=== PATIENT | male | born 1970 | race Caucasian/White ===

== ENCOUNTER 2016-09-03 17:55 | Inpatient (IN) | payer OTHER ==
[~2016-09-03] VITALS: Ht 177.8 cm; Wt 83.6 kg
[2016-09-03] VITALS (13 sets, daily range): BP systolic 108–161; BP diastolic 52–96; PULSE 112–196; RESP 14–20; TEMP 98.4–98.5; O2SAT 90–100
[2016-09-03] MEDS ORDERED: DILTIAZEM HCL 25 MG/5 ML VIAL ONE (18:23)
[2016-09-03] MEDS ORDERED: LORazepam 2 MG/ML VIAL IV PUSH ONE ×4 (18:30→20:00)
[2016-09-03] MEDS ORDERED: DILTIAZEM INJ 125 MG in SODIUM CHLORIDE 0.9% INJ 100 ML IV SCH (18:30)
[2016-09-03] MEDS ORDERED: DILTIAZEM HCL 25 MG/5 ML VIAL IVP ONE (18:30)
[2016-09-03] MEDS ORDERED: SODIUM CHLOR 0.9% 1000 ML INJ 1,000 ML IV SCH (18:30)
[2016-09-03] MEDS ORDERED: DILTIAZEM HCL 25 MG/5 ML VIAL IV ONE (18:30)
[2016-09-03] MEDS ORDERED: FOSPHENYTOIN INJ 1,000 MGPE in SODIUM CHLORIDE 0.9% INJ 50 ML IV ONE (18:45)
[2016-09-03 18:46] LABS: AUTOMATED NEUTROPHIL # 5.8 TH/MM3 (1.8-7.7); BASOPHIL % 0.3 % (0.0-2.0); HEMO FLAGS AUTO DIFF; LYMPH % 5.6 % (9.0-44.0); LYMPHOCYTE # 0.4 TH/MM3 (1.0-4.8); MEAN CELL VOLUME 108.3 FL (80.0-100.0); MEAN CORPUSCULAR HEMOGLOBIN 36.9 PG (27.0-34.0); MONO % 7.4 % (0.0-8.0); NEUT % 86.7 % (16.0-70.0); PLATELET COUNT 84 TH/MM3 (150-450); RED BLOOD COUNT 3.88 MIL/MM3 (4.50-5.90); RED CELL DISTRIBUTION WIDTH 15.6 % (11.6-17.2); WHITE BLOOD COUNT 6.7 TH/MM3 (4.0-11.0)
[2016-09-03 18:55] LABS: APTT (PATIENT) 23.4 SEC (24.3-30.1); INTERNATIONAL NORMALIZED RATIO 1.1 RATIO; PROTHROMBIN TIME - PATIENT 11.7 SEC (9.8-11.6)
--- NOTE | 2016-09-03 18:55 | PD ---
HPI Chief Complaint: Seizure Time Seen by Provider: 18:23 Travel History International Travel<30 days: No Contact w/Intl Traveler<30days: No Traveled to known affect area: No History of Present Illness HPI 46-year-old male was for him EMS for seizure. Patient has history of alcohol abuse. Patient moved to [place] from [place] and does not have a local physician. Patient has history of liver failure and kidney failure in the past. Patient states that he is still drinking alcohol daily. Patient states that the last ring with this morning. Patient was witnessed to have 2 generalized tonic-clonic seizure today. EMS was called. Patient was reported to the ED for evaluation. Patient denies any headache. Patient denies any chest pain or shortness of breath. Patient denies abdominal pain. Patient denies any extremity pain. Patient denies any focal weakness or numbness of extremity. Patient states that he has extremity shaking in the past when his stop drinking alcohol. Patient denies any cardiac problem. Patient denies any medical problem. Patient is not on any routine medication. Patient has been taking [id number] energy pills recently. [facility] Social History Tobacco Use: No Allergies-Medications (Allergen,Severity, Reaction): Coded Allergies: No Known Allergies (Unverified , 09/03/16) Review of Systems General / Constitutional: No: Fever Eyes: No: Visual changes HENT: No: Headaches Cardiovascular: No: Chest Pain or Discomfort Respiratory: No: Shortness of Breath Gastrointestinal: No: Abdominal Pain Genitourinary: No: Dysuria Musculoskeletal: No: Pain Skin: No Rash Neurologic: Positive: Seizures, No: Weakness Psychiatric: No: Depression Endocrine: No: Polydipsia Hematologic/Lymphatic: No: Easy Bruising Physical Exam Narrative GENERAL: Well-nourished, well-developed patient. SKIN: Warm and dry. HEAD: Normocephalic. EYES: No scleral icterus. No injection or drainage. Patient has dry blood on the mucous membrane of the mouth. NECK: Supple, trachea midline. No JVD or lymphadenopathy. CARDIOVASCULAR: Irregularly irregular tachycardia rhythm without murmurs. RESPIRATORY: Breath sounds equal bilaterally. No accessory muscle use. GASTROINTESTINAL: Abdomen soft, non-tender, nondistended. MUSCULOSKELETAL: No cyanosis, or edema. BACK: Nontender without obvious deformity. No CVA tenderness. Neurologic exam: Patient is lethargic however answer questions appropriately. Patient has 3 cm macerated laceration on the right side the tongue with active bleeding. Data Data Last Documented VS Vital Signs Date Time Temp Pulse Resp B/P Pulse Ox O2 Delivery O2 Flow Rate FiO2 09/03/16 19:10 169 91 Nasal Cannula 2 09/03/16 19:07 18 134/70 09/03/16 18:22 98.5 Orders Diltiazem Inj (Cardizem Inj) (09/03/16 18:30) Diltiazem Inj (Cardizem Inj) (09/03/16 18:23) Vital Signs (Adult) Q15MX4,Q4H (09/03/16 18:23) ^ Unix Manager / Telemetry (09/03/16 18:23) Cardiac Rhythm KARI.Q8H (09/03/16 18:23) ^ Notify Dr: Other (09/03/16 18:23) Diltiazem Inj (Cardizem Inj) (09/03/16 18:30) Diltiazem Inj (Cardizem Inj) (09/03/16 18:30) Sodium Chlor 0.9% 1000 Ml Inj (Ns 1000 M (09/03/16 18:30) Complete Blood Count With Diff (09/03/16 18:25) Comprehensive Metabolic Panel (09/03/16 18:25) Creatine Kinase (Cpk) (09/03/16 18:25) Troponin I (09/03/16 18:25) B-Type Natriuretic Peptide (09/03/16 18:25) Prothrombin Time / Inr (Pt) (09/03/16 18:25) Act Partial Throm Time (Ptt) (09/03/16 18:25) Lipase (09/03/16 18:25) Urinalysis - C+S If Indicated (09/03/16 18:25) Magnesium (Mg) (09/03/16 18:25) Alcohol (Ethanol) (09/03/16 18:25) Drug Screen, Random Urine (09/03/16 18:25) Ammonia (09/03/16 18:25) Thyroid Stimulating Hormone (09/03/16 18:25) Phosphorus (Po4) (09/03/16 18:25) Chest, Single Ap (09/03/16 18:25) Iv Access Insert/Monitor (09/03/16 18:25) Ecg Monitoring (09/03/16 18:25) Oximetry (09/03/16 18:25) Lorazepam Inj (Ativan Inj) (09/03/16 18:30) Fosphenytoin Inj (Cerebyx Inj) (09/03/16 18:45) Lorazepam Inj (Ativan Inj) (09/03/16 18:45) Lorazepam Inj (Ativan Inj) (09/03/16 19:00) Ct Brain W/O Iv Contrast(Rout) (09/03/16 18:55) Etomidate Inj (Amidate Inj) (09/03/16 19:15) Rocuronium Inj (Zemuron Inj) (09/03/16 19:15) Midazolam Inj (Versed Inj) (09/03/16 19:15) Neurological Rass Scale Q30MX2,Q2HX4,Q4H (09/03/16 19:04) Propofol 1000 Mg/100 Ml Inj (Diprivan 10 (09/03/16 19:15) ^ Infusion (09/03/16 19:04) RASS (09/03/16 19:04) Neurological Rass Scale KARI.Q2H (09/03/16 19:04) ^ Medication Alert (09/03/16 19:19) ^ Discontinue (09/03/16 19:19) Amiodarone Inj (Cordarone Inj) (09/03/16 19:30) Amiodarone Inj (Cordarone Inj) (09/03/16 19:30) Vital Signs (Adult) KARI.Q4H (09/03/16 19:19) Electrocardiogram (09/03/16 18:17) CKMB (09/03/16 18:28) CKMB% (09/03/16 18:28) Potassium, Serum (K) (09/03/16 19:32) Admit Order (Ed Use Only) (09/03/16 19:39) Labs Laboratory Tests Test 09/03/16 09/03/16 18:28 18:44 White Blood Count 6.7 TH/MM3 Red Blood Count 3.88 MIL/MM3 Hemoglobin 14.3 GM/DL Hematocrit 42.0 % Mean Corpuscular Volume 108.3 FL Mean Corpuscular Hemoglobin 36.9 PG Mean Corpuscular Hemoglobin 34.0 % Concent Red Cell Distribution Width 15.6 % Platelet Count 84 TH/MM3 Mean Platelet Volume 10.1 FL Neutrophils (%) (Auto) 86.7 % Lymphocytes (%) (Auto) 5.6 % Monocytes (%) (Auto) 7.4 % Eosinophils (%) (Auto) 0.0 % Basophils (%) (Auto) 0.3 % Neutrophils # (Auto) 5.8 TH/MM3 Lymphocytes # (Auto) 0.4 TH/MM3 Monocytes # (Auto) 0.5 TH/MM3 Eosinophils # (Auto) 0.0 TH/MM3 Basophils # (Auto) 0.0 TH/MM3 CBC Comment AUTO DIFF Differential Comment AUTO DIFF CONFIRMED Platelet Estimate LOW Platelet Morphology Comment NORMAL Prothrombin Time 11.7 SEC Prothromb Time International 1.1 RATIO Ratio Activated Partial 23.4 SEC Thromboplast Time Sodium Level 132 MEQ/L Potassium Level 6.0 MEQ/L Chloride Level 91 MEQ/L Carbon Dioxide Level 17.3 MEQ/L Anion Gap 24 MEQ/L Blood Urea Nitrogen 11 MG/DL Creatinine 1.17 MG/DL Estimat Glomerular Filtration 67 ML/MIN Rate Random Glucose 252 MG/DL Calcium Level 9.6 MG/DL Phosphorus Level 2.1 MG/DL Magnesium Level 1.0 MG/DL Total Bilirubin 3.0 MG/DL Aspartate Amino Transf 243 U/L (AST/SGOT) Alanine Aminotransferase 117 U/L (ALT/SGPT) Alkaline Phosphatase 153 U/L Total Creatine Kinase 445 U/L Creatine Kinase MB 2.1 NG/ML Creatine Kinase MB % 0.5 % Troponin I LESS THAN 0.02 NG/ML B-Type Natriuretic Peptide 7 PG/ML Total Protein 9.0 GM/DL Albumin 4.5 GM/DL Lipase 106 U/L Thyroid Stimulating Hormone 2.510 uIU/ML 3rd Gen Ethyl Alcohol Level LESS THAN 3 MG/DL Ammonia 175 MCMOL/L [facility] Medical Decision Making Medical Screen Exam Complete: Yes Emergency Medical Condition: Yes Differential Diagnosis Differential diagnosis including new-onset seizure, alcohol withdrawal seizure, DT, electrolyte imbalance, dehydration, new onset atrial fibrillation with RVR. Narrative Course 46 year male was brought in by EMS for seizure. History of EtOH abuse. History of liver disease and kidney disease. Patient in atrial fibrillation with RVR. Rate about 180. Cardizem 20 mg IV given. started Cardizem drip. Patient had the seizure in the ED. Ativan 2 mg IV given. Cerebyx 1 g IV given. Thiamine 100 mg IV given. Normal saline solution 100 cc an hour. Bolus of Ativan IV given the patient without success to control recurrent seizure episodes. Patient was intubated. Propofol, Versed drip started. Dr. Mchugh , engineering team supervisor was consulted for A. fib problem. Advised continue with Cardizem drip and amiodarone if necessary.. Critical Care Narrative Aggregate critical care time was 120 minutes. Time to perform other separately billable procedures was not included in the critical care time. My time did not include minutes spent treating any other patients simultaneously or on activities that did not directly contribute to the patient's treatment. The services I provided to this patient were to treat and/or prevent clinically significant deterioration that could result in: I provided critical care services requiring my management, as noted below: Chart data review, documentation time, medication orders and management, vital sign assessments/reviewing monitor data, ordering and reviewing lab tests, ordering and interpreting/reviewing x-rays and diagnostic studies, care of the patient and discussion of the patient with the admitting physicians. Procedures Procedure Narrative After the risks and benefits were discussed the following procedure was performed: INTUBATION: The patient was put in optimal position for the procedure. Rapid sequence intubation was initiated by me using 20 milligrams of etomidate IV and 50 milligrams of rocuronium IV. The patient was intubated with a [-] cuffed endotracheal tube. Tube placement was confirmed by visualization of the tube and balloon passing through the cords, capnometry and subsequent chest x-ray. Breath sounds were equal and well aerated bilaterally postintubation. No breath sounds over stomach. Patient tolerated procedure well .LACERATION LOCATION: Tongue LENGTH: 3 cm NUMBER OF STITCHES/ROSHAN: Absorbable sutures REPAIR: The area of the laceration was prepped with Betadine and sterilely draped. The laceration was infiltrated with 1% lidocaine with epi. The wound was copiously irrigated and explored without evidence of foreign body, tendon injury or neurovascular injury. The wound was closed using 3-0 Vicryl. This was a single layer repair. A sterile dressing was applied. The patient was advised to keep the dressing clean and dry. Patient tolerated the procedure well. Diagnosis Primary Impression: Status epilepticus Additional Impressions: Respiratory failure Qualified Code: J96.01 - Acute respiratory failure with hypoxia Tongue laceration Qualified Code: S01.512A - Tongue laceration, initial encounter Bryan Cheung MD Sep 03, 2016 18:55
[2016-09-03] MEDS ORDERED: ETOMIDATE 20 MG/10 ML VIAL IV PUSH ONE (19:15)
[2016-09-03] MEDS ORDERED: PROPOFOL 1000 MG/100 ML INJ 100 ML IV SCH (19:15)
[2016-09-03] MEDS ORDERED: ROCURONIUM INJ 50 MG/5 ML VIAL IV ONE (19:15)
[2016-09-03 19:19] LABS: PLATELET ESTIMATE SMEAR LOW (NORMAL); PLATELET MORPHOLOGY NORMAL (NORMAL); SCAN/DIFF AUTO DIFF CONFIRMED
[2016-09-03 19:28] LABS: ALKALINE PHOSPHATASE 153 U/L (45-117); ALT (GPT) 117 U/L (12-78); ANION GAP 24 MEQ/L (5-15); AST (GOT) 243 U/L (15-37); BICARBONATE 17.3 MEQ/L (21.0-32.0); BLOOD UREA NITROGEN 11 MG/DL (7-18); CHLORIDE 91 MEQ/L (98-107); CREATINE KINASE 445 U/L (39-308); GLOMERULAR FILTRATION RATE 67 ML/MIN (>89); SODIUM (NA) 132 MEQ/L (136-145)
[2016-09-03] MEDS ORDERED: AMIODARONE INJ 450 MG in DEXTROSE 5% IN WATE(EXCEL) INJ 241 ML IV SCH ×2 (19:30)
[2016-09-03] MEDS ORDERED: AMIODARONE INJ 150 MG in DEXTROSE 5% IN WATER 100ML INJ 97 ML IV ONE ×2 (19:30)
[2016-09-03 19:42] LABS: CKMB 2.1 NG/ML (0.5-3.6)
[2016-09-03] MEDS ORDERED: MIDAZOLAM 100 MG/ML INJ 100 ML ONE (20:01)
--- NOTE | 2016-09-03 20:48 | RADRPT ---
EXAM DATE/TIME: 09/03/2016 20:21 [facility] COMPARISON: No previous studies available for comparison. INDICATIONS : SOB, Evaluate heart and lungs post intubation. MEDICAL HISTORY : Seizures SURGICAL HISTORY : None. ENCOUNTER: Initial ACUITY: 1 day PAIN SCORE: Non-responsive. LOCATION: Chest FINDINGS: ET tube and nasogastric tube are in good position. The right lung is clear. Very minimal perihilar parenchymal changes are seen on the left. Heart and pulmonary vascularity are normal. Portion of th e bony skeleton visualized is unremarkable. CONCLUSION: 1. Support apparatus in good position. 2. Very minimal parenchymal change perihilar region on the left. Josafat Madrid MD FACR on September 03, 2016 at 20:41 Board Certified Radiologist. This report was verified electronically.
[2016-09-03 20:56] LABS: BLOOD, URINE MOD (NEG); COMMENT (UR) CULT NOT INDICATED; CULTURE IF INDICATED CULT NOT INDICATED; GLUCOSE,URINE 1000 mg/dL (NEG); HYALINE CAST, URINE 1 /lpf (RARE); KETONE, URINE 40 mg/dL (NEG); MUCUS URINE FEW /lpf (OCC); NITRITE,URINE NEG (NEG); PH, URINE 6.5 (5.0-8.5); URINE COLOR YELLOW (YELLW/STRAW)
[2016-09-03 21:00] LABS: AMPHETAMINE, URINE NEG (NEG); BARBITURATES, URINE NEG (NEG); COCAINE, URINE NEG (NEG)
[2016-09-03] MEDS ORDERED: MAGNESIUM OXIDE 400 MG TAB PO PRN (22:15)
[2016-09-03] MEDS ORDERED: MAGNESIUM SULFATE INJ 2 GM in SODIUM CHLORIDE 0.9% INJ 96 ML IV PRN (22:15)
[2016-09-03] MEDS ORDERED: SODIUM PHOSPHATE INJ 30 MMOL in SODIUM CHLOR 0.9% 250 ML INJ 240 ML IV PRN (22:15)
[2016-09-03] MEDS ORDERED: POTASSIUM PHOSPHATE MONOBASIC 500 MG TAB PO/TUBE PRN (22:15)
[2016-09-03] MEDS ORDERED: POTASSIUM PHOSPHATE MONOBASIC 500 MG TAB PO PRN (22:15)
[2016-09-03] MEDS ORDERED: POTASSIUM PHOSPHATE INJ 30 MMOL in SODIUM CHLOR 0.9% 250 ML INJ 250 ML IV PRN (22:15)
[2016-09-03] MEDS ORDERED: POTASSIUM CL 40 MEQ/30 ML LIQ UDC PO/TUBE PRN ×2 (22:15)
[2016-09-03] MEDS ORDERED: POTASSIUM CHLOR 20 MEQ PREMIX 100 ML IV PRN (22:15)
[2016-09-03] MEDS: METOPROLOL TARTRATE 25 MG TAB PO SCH (22:30)
[2016-09-03] MEDS ORDERED: MISCELLANEOUS NURSING INFORMATION XX SCH (22:30)
[2016-09-03] MEDS ORDERED: CHLORHEXIDINE GLUCONATE 2 % 1 PACK (2 CLOTHS) TOP PRN (22:30)
[2016-09-03] MEDS ORDERED: OCTREOTIDE INJ 50 MCG/ML AMP IV ONE (22:30)
[2016-09-03] MEDS ORDERED: SODIUM CHLORIDE 0.9% FLUSH 5 ML FLUSH IV FLUSH PRN (22:30)
[2016-09-03] MEDS ORDERED: RESP: ALBUTEROL 2.5 MG/IPRATROPIUM 0.5 MG NEB (PRN) INH (22:30)
[2016-09-03] MEDS ORDERED: ONDANSETRON HCL 4 MG/2 ML VIAL IV PRN (22:30)
[2016-09-03] MEDS ORDERED: SODIUM BICARBONATE 8.4% INJ 50 MEQ/50 ML SYR IV PUSH ONE (22:45)
[2016-09-03] MEDS: SODIUM CHLOR 0.9% 1000 ML INJ 1,000 ML IV SCH (23:00)
--- NOTE | 2016-09-03 23:10 | HHI.HP ---
HPI Service Critical Care Medicine Primary Care Physician No Primary Care Physician Admission Diagnosis seizure. A. fib with RVR. Electrolyte abnormality. Diagnosis: Chief Complaint: Outpatient seizure X 2. Travel History International Travel<30 Days: No Contact w/Intl Traveler <30 Da: No Traveled to Known Affected Are: No History of Present Illness 46 y/o man presented to ED after seizure X 2. Heavy ETOH and liver disease history, still drinking. Subsequently developed status seizures requiring intubation and mechanical ventilation. Bite to tongue caused 3 cm laceration requiring suture repair due to bleeding. NG with > 300 MLs old blood. 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 Developed a-fib with RVR (arrived in sinus) . Low Mag, low phos. Review of Systems ROS Seizures. No chest pain or SOB/ + tremors. Stopped drinking about 12 hours ago. Past Family Social History Allergies: Coded Allergies: No Known Allergies (Unverified , 09/03/16) Physical Exam Vital Signs Vital Signs Date Time Temp Pulse Resp B/P Pulse Ox O2 Delivery O2 Flow Rate FiO2 09/03/16 21:15 133 14 138/87 100 Ventilator 09/03/16 20:52 98.4 14 99 Ventilator 09/03/16 20:14 150 161/95 99 Ventilator 09/03/16 20:07 156 14 158/96 90 Ventilator 09/03/16 20:02 100 100 09/03/16 20:00 145 20 144/85 91 Non-Rebreather 15 09/03/16 19:10 169 91 Nasal Cannula 2 09/03/16 19:07 196 18 134/70 90 Nasal Cannula 2 09/03/16 18:22 98.5 165 20 153/94 100 Physical Exam Gen: Ill-appearing, actively seizing. Head: Bleeding from right tongue laceration, 3 cm. Neck; Supple earlier, now rigid, orally intubated. Lungs: Diffuse rhonchi, goo air movement on vent. Heart" Irreg Irreg, 160s. No JVD. Abdomen: Moderately distended. Quiet. No guarding. Extremities: Tepid, adequately perfused. Neuro: Generalized tonic-clonic seizures. Conversant before. Laboratory Laboratory Tests Test 09/03/16 09/03/16 09/03/16 09/03/16 18:28 18:44 19:43 20:40 White Blood Count 6.7 Red Blood Count 3.88 Hemoglobin 14.3 Hematocrit 42.0 Mean Corpuscular Volume 108.3 Mean Corpuscular Hemoglobin 36.9 Mean Corpuscular Hemoglobin 34.0 Concent Red Cell Distribution Width 15.6 Platelet Count 84 Mean Platelet Volume 10.1 Neutrophils (%) (Auto) 86.7 Lymphocytes (%) (Auto) 5.6 Monocytes (%) (Auto) 7.4 Eosinophils (%) (Auto) 0.0 Basophils (%) (Auto) 0.3 Neutrophils # (Auto) 5.8 Lymphocytes # (Auto) 0.4 Monocytes # (Auto) 0.5 Eosinophils # (Auto) 0.0 Basophils # (Auto) 0.0 CBC Comment AUTO DIFF Differential Comment AUTO DIFF CONFIRMED Platelet Estimate LOW Platelet Morphology Comment NORMAL Prothrombin Time 11.7 Prothromb Time International 1.1 Ratio Activated Partial 23.4 Thromboplast Time Sodium Level 132 Potassium Level 6.0 4.3 Chloride Level 91 Carbon Dioxide Level 17.3 Anion Gap 24 Blood Urea Nitrogen 11 Creatinine 1.17 Estimat Glomerular Filtration 67 Rate Random Glucose 252 Calcium Level 9.6 Phosphorus Level 2.1 Magnesium Level 1.0 Total Bilirubin 3.0 Aspartate Amino Transf 243 (AST/SGOT) Alanine Aminotransferase 117 (ALT/SGPT) Alkaline Phosphatase 153 Total Creatine Kinase 445 Creatine Kinase MB 2.1 Creatine Kinase MB % 0.5 Troponin I LESS THAN 0.02 B-Type Natriuretic Peptide 7 Total Protein 9.0 Albumin 4.5 Lipase 106 Thyroid Stimulating Hormone 2.510 3rd Gen Ethyl Alcohol Level LESS THAN 3 Ammonia 175 Urine Color YELLOW Urine Turbidity CLEAR Urine pH 6.5 Urine Specific [place] 1.009 Urine Protein 100 Urine Glucose (UA) 1000 Urine Ketones 40 Urine Occult Blood MOD Urine Nitrite NEG Urine Bilirubin NEG Urine Urobilinogen LESS THAN 2.0 Urine Leukocyte Esterase NEG Urine RBC 7 Urine WBC 2 Urine Hyaline Casts 1 Urine Mucus FEW Microscopic Urinalysis Comment CULT NOT INDICATED Urine Opiates Screen NEG Urine Barbiturates Screen NEG Urine Amphetamines Screen NEG Urine Benzodiazepines Screen NEG Urine Cocaine Screen NEG Urine Cannabinoids Screen NEG Result Diagram: 09/03/16 1828 09/03/161942 Assessment and Plan Problem List: (1) Respiratory failure ICD Code: J96.90 Status: Acute (2) Status epilepticus ICD Code: G40.901 Status: Acute (3) Hepatic failure due to alcoholism ICD Code: K70.40 Status: Acute (4) Tongue laceration ICD Code: S01.512A Status: Acute (5) Upper GI hemorrhage ICD Code: K92.2 Status: Acute (6) EtOH dependence ICD Code: F10.20 Status: Acute (7) Hypomagnesemia ICD Code: E83.42 Status: Acute (8) Hypophosphatemia ICD Code: E83.39 Status: Acute Assessment and Plan Assessment: 1. Respiratory Failure. 2. Status Seizures. 3. ? UGI bleed (Swallowed from mouth or primary intestinal) 4. Paroxysmal a-fib with RVR. 5. Electrolyte imbalance. 6. Hepatic failure, chronic alcoholism. Elevated ammonia 170s Plan: RESP: PRVC vent mode. No SBT until seizures controlled. CV: Start lopressor PO. Cardizem gtt tonight. Replace Mag, Phos. NEURO: Propofol at 50 mics. Versed gtt at 10 mg/hr. Ativan for breakthrough seizures. GI: NG to LIS, follow blood output. Protonix and Octreotide Gtts. Lactulose qid. : Montano to CBD. Hourly output. ENDO: Serial glucose with liver failure. HEME: Serial Hgb. Coags, including fibrinogen. Type and screen ID: Cover with ceftriaxone for bleed and hepatic failure. Nutrition: Prealbumin. TFs after bleeding stops. PX: Protoniox gtt, no chemical DVT, start SCDS. Overall impression: Critically ill alcoholic with status withdrawal seizures, atrial fibrillation with RVR, and respiratory failure. It is unclear if he has an active GI bleed or if that is swallow blood from his tongue laceration. Ammonia indicates hepatic failure, possibly exacerbated by GI blood.Unstable and precarious hemodynamics. Prognosis guarded. Critical Care 40 mins aside from procedures. Problem Qualifiers (1) Respiratory failure: Qualified Code: J96.01 - Acute respiratory failure with hypoxia (2) Tongue laceration: Qualified Code: S01.512A - Tongue laceration, initial encounter Ulysses Coulter MD Sep 03, 2016 23:10
[2016-09-03] MEDS ORDERED: PANTOPRAZOLE INJ 80 MG in SODIUM CHLORIDE 0.9% INJ 35 ML IV ONE (23:30)
[2016-09-04] VITALS (28 sets, daily range): BP systolic 84–111; BP diastolic 56–78; PULSE 2–121; RESP 14–21; TEMP 97.6–102.4; O2SAT 98–100
--- NOTE | 2016-09-04 00:14 | RADRPT ---
EXAM DATE/TIME: 09/03/2016 23:35 [facility] COMPARISON: No previous studies available for comparison. INDICATIONS : Altered mental status / seizures. RADIATION DOSE: 56.35 CTDIvol (mGy) MEDICAL HISTORY : None SURGICAL HISTORY : None. ENCOUNTER: Initial ACUITY: 1 day PAIN SCALE: Non-responsive LOCATION: cranial TECHNIQUE: Multiple contiguous axial images were obtained of the head. Using automated exposure control and adj ustment of the mA and/or kV according to patient size, radiation dose was kept as low as reasonably a chievable to obtain optimal diagnostic quality images. FINDINGS: Noncontrast axial head CT demonstrates the ventricles to be enlarged with a prominent sulcal pattern compatible with atrophy. No acute intracranial hemorrhage, acute cortical infarction, mass or midline shift is seen. Posterior fossa structures are unremarkable. Bone windows demonstrate no abnormality. CONCLUSION: Atrophy. No evidence of acute intracranial pathology. Warren Amos MD on September 04, 2016 at 0:12 Board Certified Radiologist. This report was verified electronically.
[2016-09-04] MEDS: LORazepam 2 MG/ML VIAL IV PRN (01:01)
[2016-09-04] MEDS: PANTOPRAZOLE INJ 80 MG in SODIUM CHLORIDE 0.9% INJ 100 ML IV SCH ×3 (01:02→20:16)
[2016-09-04] MEDS: OCTREOTIDE INJ 500 MCG in SODIUM CHLORID 0.9% 500 ML INJ 499.5 ML IV SCH ×2 (01:02→20:15)
[2016-09-04] MEDS: MIDAZOLAM 100 MG/ML INJ 100 ML IV SCH ×3 (01:03→20:14)
[2016-09-04] MEDS: PROPOFOL 1000 MG/100 ML INJ 100 ML IV SCH ×4 (01:03→21:18)
[2016-09-04] MEDS: cefTRIAXone INJ 1,000 MG in SODIUM CHLORIDE 0.9% INJ 100 ML IV SCH (02:15)
[2016-09-04 02:27] LABS: AUTOMATED NEUTROPHIL # 3.6 TH/MM3 (1.8-7.7); BASOPHIL % 0.3 % (0.0-2.0); HEMATOCRIT 32.4 % (39.0-51.0); LYMPH % 5.7 % (9.0-44.0); LYMPHOCYTE # 0.3 TH/MM3 (1.0-4.8); MEAN CELL VOLUME 106.9 FL (80.0-100.0); MEAN CORPUSCULAR HEMOGLOBIN 38.3 PG (27.0-34.0); MEAN CORPUSCULAR HGB CONC 35.8 % (32.0-36.0); MONO % 13.3 % (0.0-8.0); NEUT % 80.7 % (16.0-70.0); PLATELET COUNT 59 TH/MM3 (150-450); RED BLOOD COUNT 3.03 MIL/MM3 (4.50-5.90); RED CELL DISTRIBUTION WIDTH 15.1 % (11.6-17.2); WHITE BLOOD COUNT 4.5 TH/MM3 (4.0-11.0)
[2016-09-04 02:41] LABS: ALKALINE PHOSPHATASE 101 U/L (45-117); ALT (GPT) 80 U/L (12-78); ANION GAP 9 MEQ/L (5-15); AST (GOT) 138 U/L (15-37); BLOOD UREA NITROGEN 16 MG/DL (7-18); CHLORIDE 100 MEQ/L (98-107); CREATINE KINASE 421 U/L (39-308); GLOMERULAR FILTRATION RATE 52 ML/MIN (>89); MAGNESIUM 1.1 MG/DL (1.5-2.5); POTASSIUM 3.6 MEQ/L (3.5-5.1); SODIUM (NA) 140 MEQ/L (136-145); TOTAL BILIRUBIN ADULT 3.2 MG/DL (0.2-1.0)
[2016-09-04] MEDS ORDERED: NOREPINEPHRINE-DEXTROSE DRIP 250 ML IV ONE (02:50)
[2016-09-04 02:54] LABS: HEMO FLAGS AUTO DIFF
[2016-09-04] MEDS ORDERED: MAGNESIUM SULFATE 1 GM PREMIX 100 ML ONE (02:55)
[2016-09-04 03:01] LABS: CKMB 2.3 NG/ML (0.5-3.6)
[2016-09-04] MEDS ORDERED: SODIUM CHLOR 0.9% 1000 ML INJ 1,000 ML IV ONE ×3 (03:15→10:15)
[2016-09-04 03:18] LABS: INTERNATIONAL NORMALIZED RATIO 1.1 RATIO
[2016-09-04] MEDS ORDERED: SODIUM PHOSPHATE INJ 15 MMOL in SODIUM CHLORIDE 0.9% INJ 150 ML IV ONE (03:30)
[2016-09-04 03:39] LABS: PLATELET ESTIMATE SMEAR LOW (NORMAL); PLATELET MORPHOLOGY NORMAL (NORMAL); SCAN/DIFF AUTO DIFF CONFIRMED; TARGET CELLS 1+ (NORMAL)
[2016-09-04] MEDS: CHLORHEXIDINE GLUCONATE 2 % 1 PACK (2 CLOTHS) TOP SCH (04:00)
[2016-09-04] MEDS: MAGNESIUM SULFATE 1 GM PREMIX 100 ML IV SCH ×3 (04:42→05:19)
--- NOTE | 2016-09-04 05:03 | RADRPT ---
EXAM DATE/TIME: 09/04/2016 03:45 [facility] COMPARISON: CHEST SINGLE AP, September 03, 2016, 20:21. INDICATIONS : Shortness of breath, possible pulmonary disease. MEDICAL HISTORY : Seizures SURGICAL HISTORY : None. ENCOUNTER: Subsequent ACUITY: 2 days PAIN SCORE: Non-responsive. LOCATION: Bilateral chest FINDINGS: The cardiac silhouette is enlarged in transverse diameter. Support lines and tubes are in satisfactor y position. There is subsegmental atelectasis in the left base. No pleural effusions are identified. CONCLUSION: 1. Cardiomegaly with subsegmental atelectasis left base. There has been no significant change when co mpared to the prior exam. Warren Amos MD on September 04, 2016 at 5:01 Board Certified Radiologist. This report was verified electronically.
[2016-09-04 05:33] LABS: BLOOD GAS BASE EXCESS 1.1 mmol/L (-2-2); BLOOD GAS CARBOXYHEMOGLOBIN 1.5 % (0-4); BLOOD GAS HCO3 25 mmol/L (22-26); BLOOD GAS O2 HGB SATURATION 98 % (90-100); BLOOD GAS OXYGEN CONTENT 14.4 Vol % (12.0-20.0); BLOOD GAS PCO2 36 mmHg (38-42); BLOOD GAS PO2 279 mmHg (61-120); CRITICAL VALUE NO; DRAW SITE RT BRACHIAL; FIO2 65 %; NUMBER OF ARTERIAL PUNCTURES 1; OXYGEN DEVICE VENTILATOR; STAT NO; TEMP CORR TO 98.6; ULNAR PULSE PRESENT; VENT SETTINGS SEE COMMENTS
[2016-09-04] MEDS: SODIUM CHLOR 0.9% 1000 ML INJ 1,000 ML IV SCH ×3 (07:58→20:14)
[2016-09-04] MEDS: CHLORHEXIDINE 0.12% (ORAL KIT) 15 ML CUP MT SCH ×2 (08:00→20:00)
[2016-09-04] MEDS: METOPROLOL TARTRATE 25 MG TAB PO SCH ×2 (08:24→20:15)
--- NOTE | 2016-09-04 08:25 | HHI.CCPN ---
Subjective Remarks/Hospital Course 46 y/o man presented to ED after seizure X 2. Heavy ETOH and liver disease history, still drinking. Subsequently developed status seizures requiring intubation and mechanical ventilation. Bite to tongue caused 3 cm laceration requiring suture repair due to bleeding. NG with > 300 MLs old blood. 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 Developed a-fib with RVR (arrived in sinus) . Low Mag, low phos. SUBJECTIVE 08/21/16: Remains intubated sedated. On 7.5 mics per minute of Levophed. Old blood from NG tube. GI consulted. Continuing IV Protonix and octreotide. Transfuse 1 unit of platelets Objective Vital Signs Date Time Temp Pulse Resp B/P Pulse Ox O2 Delivery O2 Flow Rate FiO2 09/04/16 08:07 30 09/04/16 08:03 58 09/04/16 08:03 97.6 16 90/63 99 09/03/16 23:31 Ventilator 09/03/16 20:00 15 Result Diagram: 09/04/16 0215 09/04/16 0215 Other Results Laboratory Tests Test 09/04/16 05:20 Blood Gas Puncture Site RT BRACHIAL Blood Gas Patient Temperature 98.6 Blood Gas HCO3 25 mmol/L (22-26) Blood Gas Base Excess 1.1 mmol/L (-2-2) Blood Gas Oxygen Saturation 98 % (90-100) Arterial Blood pH 7.45 (7.380-7.420) Arterial Blood Partial 36 mmHg (38-42) Pressure CO2 Arterial Blood Partial 279 mmHg Pressure O2 (61-120) Arterial Blood Oxygen Content 14.4 Vol % (12.0-20.0) Arterial Blood 1.5 % (0-4) Carboxyhemoglobin Arterial Blood Methemoglobin 1.0 % (0-2) Blood Gas Hemoglobin 10.0 G/DL (12.0-16.0) Oxygen Delivery Device VENTILATOR Blood Gas Ventilator Setting SEE COMMENTS Blood Gas Inspired Oxygen 65 % Objective Remarks Gen: Ill-appearing, intubated heavily sedated Heent: Bleeding from right tongue laceration, 3 cm. NGT with coffee ground output Neck; Supple, orally intubated. Lungs: Diffuse rhonchi, good air movement on vent. Hear: NSR, no murmurs No JVD. Abdomen: Moderately distended. Quiet. No guarding. Extremities: Tepid, adequately perfused. Neuro: Intubated heavily sedated. Limits neuro exam Urinary Catheter: Yes Assessment to: Continue A/P Problem List: (1) Respiratory failure ICD Code: J96.90 Status: Acute (2) Status epilepticus ICD Code: G40.901 Status: Acute (3) Hepatic failure due to alcoholism ICD Code: K70.40 Status: Acute (4) Tongue laceration ICD Code: S01.512A Status: Acute (5) Upper GI hemorrhage ICD Code: K92.2 Status: Acute (6) EtOH dependence ICD Code: F10.20 Status: Acute (7) Hypomagnesemia ICD Code: E83.42 Status: Acute (8) Hypophosphatemia ICD Code: E83.39 Status: Acute Assessment and Plan Assessment: 1. Acute respiratory failure 2. Status epilepticus. 3. UGI bleed (Swallowed from mouth or primary intestinal) 4. Paroxysmal a-fib with RVR. 5. Electrolyte imbalance. 6. Hepatic failure 7. Hyperammonemia 170s 8. Alcohol dependence 9. Tongue laceration Plan: RESP: PRVC vent mode. No SBT until seizures controlled. DuoNeb every 6 hours and when necessary, ventilator bundle CV: Lopressor PO. Cardizem gtt had been weaned off. Replace Mag, Phos. No anticoagulation due to GI bleed and from cytopenia NEURO: Propofol at 50 mics. Versed gtt at 10 mg/hr. Ativan for breakthrough seizures. Continue lactulose and rifaximin. Check rpt ammonia level. Supplement thiamine GI: NG to LIS, follow blood output. Protonix and Octreotide Gtts. Lactulose qid, rifaximin. GI consulted. Start ceftriaxone for SBP prophylaxis : Montano to CBD. Hourly output. ENDO: Serial glucose with liver failure. HEME: Serial Hgb. Coags, including fibrinogen. Type and screen. Transfuse 1 unit of platelets ID: Cover with ceftriaxone for bleed and hepatic failure. Nutrition: Prealbumin. TFs after bleeding stops. PX: Protonix gtt, no chemical DVT prophylaxis, continue SCDS. Overall impression: Critically ill alcoholic with status withdrawal seizures, atrial fibrillation with RVR, and respiratory failure. It is unclear if he has an active GI bleed or if that is swallow blood from his tongue laceration. Ammonia indicates hepatic failure, possibly exacerbated by GI blood.Unstable and precarious hemodynamics. Prognosis guarded. Critical Care 40 mins aside from procedures. Problem Qualifiers (1) Respiratory failure: Qualified Code: J96.01 - Acute respiratory failure with hypoxia (2) Tongue laceration: Qualified Code: S01.512A - Tongue laceration, initial encounter Ovi Metzger MD Sep 04, 2016 08:25
[2016-09-04] MEDS: SODIUM CHLORIDE 0.9% FLUSH 5 ML FLUSH IV FLUSH SCH ×2 (08:40→20:14)
[2016-09-04] MEDS: LACTULOSE SYRUP 20 GM/30 ML CUP PO SCH ×3 (08:40→20:14)
[2016-09-04] MEDS ORDERED: cefTRIAXone INJ 1,000 MG in SODIUM CHLORIDE 0.9% INJ 100 ML IV SCH (08:45)
[2016-09-04] MEDS ORDERED: LACTULOSE SYRUP 20 GM/30 ML CUP PO SCH (09:00)
--- NOTE | 2016-09-04 10:15 | PD.CONS ---
HPI History of Present Illness This is a 46 year old male who is currently intubated and is unable to provide much in the way of history and information was obtained through chart review apparently he was brought in by ambulance service for seizures the patient has history of alcohol abuse and apparently there is mention of liver failure and kidney failure in the past the patient apparently continues to drink alcohol on a daily basis PFSH Past Medical History History of alcoholism and seizures Past Surgical History None Coded Allergies: No Known Allergies (Unverified , 09/03/16) Medications Current Medications Diltiazem HCl (Cardizem Inj) 20 mg ONCE ONCE IV Last administered on 18:55; Start 09/03/16 at 18:30; Stop 09/03/16 at 18:31; Status DC Diltiazem HCl (Cardizem Inj) 25 mg STK-MED ONCE .ROUTE ; Start 09/03/16 at 18:23 ; Stop 09/03/16 at 18:24; Status DC Diltiazem HCl 20 mg 20 mg ONCE ONCE IVP ; Start 09/03/16 at 18:30; Stop at 18:31; Status DC Diltiazem HCl 125 mg/Sodium Chloride 125 ml @ 0 mls/hr TITRATE IV Last administered on 09/03/16 18:45; Start 09/03/16 at 18:30; Stop 09/04/16 at 05:20 ; Status DC Sodium Chloride (NS 1000 ml Inj) 1,000 ml @ 100 mls/hr Q10H IV Last administered on 09/03/16 18:56; Start 09/03/16 at 18:30; Stop 09/03/16 at 22:31 ; Status DC Lorazepam 2 mg 2 mg ONCE ONCE IV PUSH Last administered on 09/03/16 18:31; Start 09/03/16 at 18:30; Stop 09/03/16 at 18:31; Status DC Fosphenytoin Sodium/Sodium Chloride (Cerebyx Inj/NS Inj) 70 ml @ 280 mls/hr ONCE ONCE IV Last administered on 09/03/16 18:50; Start 09/03/16 at 18:45; Stop 09/03/16 at 18:59; Status DC Lorazepam (Ativan Inj) 2 mg ONCE ONCE IV PUSH Last administered on 09/03/16 18:55; Start 09/03/16 at 18:45; Stop 09/03/16 at 18:46; Status DC Lorazepam (Ativan Inj) 4 mg ONCE ONCE IV PUSH Last administered on 09/03/16 19:02; Start 09/03/16 at 19:00; Stop 09/03/16 at 19:01; Status DC Etomidate (Amidate Inj) 20 mg ONCE ONCE IV PUSH Last administered on 20:21; Start 09/03/16 at 19:15; Stop 09/03/16 at 19:16; Status DC Rocuronium Tieton 50 mg 50 mg BOLUS ONCE IV Last administered on 09/03/16 20 :22; Start 09/03/16 at 19:15; Stop 09/03/16 at 19:16; Status DC Midazolam HCl 100 ml @ 0 mls/hr TITRATE IV Last administered on 09/04/16 09:19 ; Start 09/03/16 at 19:15 Propofol 100 ml @ 0 mls/hr TITRATE IV Last administered on 09/03/16 20:48; Start 09/03/16 at 19:15; Stop 09/03/16 at 22:32; Status DC Amiodarone HCl 150 mg/Dextrose 100 ml @ 600 mls/hr ONCE ONCE IV ; Start at 19:30; Stop 09/03/16 at 19:39; Status DC Amiodarone HCl/ Dextrose (Cordarone Inj/ D5W ([place]) Inj) 250 ml @ 0 mls/hr CONTINUOUS IV ; Start 09/03/16 at 19:30; Stop 09/04/16 at 09:25; Status DC Lorazepam 4 mg 4 mg ONCE ONCE IV PUSH Last administered on 09/03/16 20:47; Start 09/03/16 at 20:00; Stop 09/03/16 at 20:01; Status DC Midazolam HCl 100 ml @ As Directed STK-MED ONCE .ROUTE Last administered on 21:00; Start 09/03/16 at 20:01; Stop 09/03/16 at 20:02; Status DC Potassium Chloride 100 ml @ 50 mls/hr Q2H PRN IV For Potassium 2.8 - 3.2 mEq/L ; Start 09/03/16 at 22:15 Potassium Chloride (KCl 20 Meq Premix Inj) 100 ml @ 50 mls/hr Q2H PRN IV For Potassium 2.8 - 3.2 mEq/L; Start 09/03/16 at 22:15 Potassium Chloride 40 meq 40 meq UNSCH PRN PO/TUBE For Potassium 3.3 - 3.5 mEq/ L; Start 09/03/16 at 22:15 Potassium Chloride 100 ml @ 25 mls/hr UNSCH PRN IV For Potassium 3.3 - 3.5 mEq /L; Start 09/03/16 at 22:15 Potassium Chloride 100 ml @ 50 mls/hr Q2H PRN IV For Potassium 3.3 - 3.5 mEq/L ; Start 09/03/16 at 22:15 Magnesium Sulfate/ Sodium Chloride (Magnesium Sulfate Inj/NS Inj) 100 ml @ 50 mls/hr UNSCH PRN IV For Magnesium 0.9 - 1.1 mg/dL; Start 09/03/16 at 22:15 Magnesium Oxide 800 mg 800 mg UNSCH PRN PO For Magnesium 1.2 - 1.6 mg/dL; Start 09/03/16 at 22:15 Magnesium Sulfate/ Sodium Chloride (Magnesium Sulfate Inj/NS Inj) 100 ml @ 50 mls/hr UNSCH PRN IV For Magnesium 1.2 - 1.6 mg/dL; Start 09/03/16 at 22:15 Potassium Phosphate 2000 mg 2,000 mg Q4H PRN PO For Phosphorus < 2.5 mg/dL; Start 09/03/16 at 22:15 Sodium Phosphate/ Sodium Chloride (Sodium Phosphate Inj/NS 250 ml Inj) 250 ml @ 42 mls/hr UNSCH PRN IV For Phosphorus < 2.5 mg/dL; Start 09/03/16 at 22:15 Potassium Chloride (KCl 40 Meq/30 ml Liq) 40 meq UNSCH PRN PO/TUBE SEE LABEL COMMENTS; Start 09/03/16 at 22:15 Potassium Phosphate 2000 mg 2,000 mg UNSCH PRN PO/TUBE SEE LABEL COMMENTS; Start 09/03/16 at 22:15 Potassium Phosphate/Sodium Chloride (Potassium Phosphate Inj/NS 250 ml Inj) 260 ml @ 42 mls/hr UNSCH PRN IV SEE LABEL COMMENTS; Start 09/03/16 at 22:15 Chlorhexidine Gluconate (Peridex 0.12% Liq) 15 ml BID@08,20 MT ; Start 09/04/16 at 08:00 Octreotide Acetate 50 mcg 50 mcg ONCE ONCE IV Last administered on 09/04/16 01:01; Start 09/03/16 at 22:30; Stop 09/03/16 at 22:31; Status DC Octreotide Acetate 500 mcg/ Sodium Chloride 500.0 ml @ 25 mls/hr Q20H IV Last administered on 09/04/16 01:02; Start 09/04/16 at 00:30 Pantoprazole Sodium 80 mg/ Sodium Chloride 35 ml @ 420 mls/hr ONCE ONCE IV Last administered on 09/04/16 01:02; Start 09/03/16 at 23:30; Stop 09/03/16 at 23:34; Status DC Pantoprazole Sodium 80 mg/ Sodium Chloride 100 ml @ 10 mls/hr Q10H IV Last administered on 09/04/16 08:40; Start 09/03/16 at 23:30 Sodium Chloride (NS 1000 ml Inj) 1,000 ml @ 125 mls/hr Q8H IV Last administered on 09/04/16 07:58; Start 09/03/16 at 23:00 IV Flush (NS Flush) 2 ml UNSCH PRN IV FLUSH FLUSH AFTER USING IV ACCESS; Start 09/03/16 at 22:30 IV Flush (NS Flush) 2 ml BID IV FLUSH Last administered on 09/04/16 08:40; Start 09/04/16 at 09:00 Morphine Sulfate (Morphine Inj) 2 mg Q2H PRN IV PAIN SCALE 6 TO 10; Start 09/03 at 22:30 Lorazepam (Ativan Inj) 2 mg Q4H PRN IV Agitation/Sedation Last administered on 09/04/16 01:01; Start 09/03/16 at 22:30 Ondansetron HCl (Zofran Inj) 4 mg Q6H PRN IV NAUSEA OR VOMITING; Start at 22:30 Lactulose (Lactulose Liq) 30 ml DAILY PO ; Start 09/04/16 at 09:00; Stop at 09:00; Status DC Albuterol/ Ipratropium (Duoneb Neb) 1 ampule Q4HR NEB PRN INH WHEEZING; Start 09/03/16 at 22:30 Miscellaneous Information 1 [id number] XX ; Start 09/03/16 at 22:30 Chlorhexidine Gluconate (Chlorhexidine 2% Cloth) 3 pack Taper DAILY@04 TOP ; Start 09/04/16 at 04:00; Stop 08/31/17 at 03:59 Chlorhexidine Gluconate 3 pack 3 pack UNSCH PRN TOP HYGIENIC CARE; Start at 22:30 Propofol (Diprivan 1000 Mg/100ml Inj) 100 ml @ 0 mls/hr TITRATE IV Last administered on 09/04/16 05:50; Start 09/03/16 at 22:30 Lactulose (Lactulose Liq) 30 ml Q6H PO Last administered on 09/04/16 08:40; Start 09/04/16 at 09:00 Metoprolol Tartrate (Lopressor) 25 mg Q12HR PO ; Start 09/03/16 at 22:30 Sodium Bicarbonate 100 meq 100 meq ONCE ONCE IV PUSH Last administered on 09/04 01:00; Start 09/03/16 at 22:45; Stop 09/03/16 at 22:46; Status DC Ceftriaxone Sodium 1000 mg/ Sodium Chloride 100 ml @ 200 mls/hr Q24H IV Last administered on 09/04/16 02:15; Start 09/03/16 at 23:00 Norepinephrine Bitartrate 250 ml @ As Directed STK-MED ONCE IV Last administered on 09/04/16 02:50; Start 09/04/16 at 02:50; Stop 09/04/16 at 02:51 ; Status DC Norepinephrine Bitartrate 250 ml @ 0 mls/hr TITRATE IV ; Start 09/04/16 at 03:00 Magnesium Sulfate/ Dextrose 100 ml @ As Directed STK-MED ONCE .ROUTE Last administered on 09/04/16 02:55; Start 09/04/16 at 02:55; Stop 09/04/16 at 02:56 ; Status DC Sodium Chloride 1,000 ml @ 1,000 mls/hr Q1H ONCE IV Last administered on 03:06; Start 09/04/16 at 03:15; Stop 09/04/16 at 04:14; Status DC Magnesium Sulfate/ Dextrose 100 ml @ 100 mls/hr Q1H IV Last administered on 05:19; Start 09/04/16 at 03:00; Stop 09/04/16 at 05:59; Status DC Sodium Phosphate 15 mmol/Sodium Chloride 155 ml @ 51.667 mls/ hr ONCE ONCE IV Last administered on 09/04/16 03:51; Start 09/04/16 at 03:30; Stop 09/04/16 at 06:29; Status DC Sodium Chloride (NS 1000 ml Inj) 1,000 ml @ 0 mls/hr BOLUS ONCE IV Last administered on 09/04/16 05:30; Start 09/04/16 at 05:30; Stop 09/04/16 at 05:31 ; Status DC Rifaximin 550 mg 550 mg BID PO ; Start 09/04/16 at 11:00 Ceftriaxone Sodium 1000 mg/ Sodium Chloride 100 ml @ 200 mls/hr Q24H IV ; Start 09/04/16 at 08:45; Status UNV Sodium Chloride (NS 1000 ml Inj) 1,000 ml @ 999 mls/hr BOLUS ONCE IV Last administered on 09/04/16 10:04; Start 09/04/16 at 10:15; Stop 09/04/16 at 11:15 Family History Noncontributory Social History Positive for alcohol and negative for tobacco Review of Systems ROS Unobtainable due to clinical condition GI Exam Vitals I&O Vital Signs Date Time Temp Pulse Resp B/P Pulse Ox O2 Delivery O2 Flow Rate FiO2 09/04/16 10:04 51 09/04/16 09:13 52 09/04/16 08:07 30 09/04/16 08:03 58 09/04/16 08:03 97.6 57 16 90/63 99 09/04/16 07:01 99 30 09/04/16 05:00 30 09/04/16 04:12 99 65 09/04/16 04:00 99.0 68 14 92/66 100 09/04/16 04:00 80 09/04/16 03:00 83 14 88/62 99 09/04/16 03:00 80 09/04/16 03:00 83 09/04/16 02:00 102.0 92 16 84/64 99 09/04/16 02:00 90 09/04/16 01:00 103 19 95/68 99 09/04/16 00:30 102.4 106 21 105/72 99 09/04/16 00:00 100 09/04/16 00:00 121 09/04/16 00:00 121 21 87/65 98 09/03/16 23:45 95 90 09/03/16 23:31 114 14 111/66 99 Ventilator 09/03/16 23:30 99 100 09/03/16 23:06 112 14 108/52 100 Ventilator 09/03/16 22:15 112 14 108/52 100 Ventilator 09/03/16 21:15 133 14 138/87 100 Ventilator 09/03/16 20:52 98.4 14 99 Ventilator 09/03/16 20:14 150 161/95 99 Ventilator 09/03/16 20:07 156 14 158/96 90 Ventilator 09/03/16 20:02 100 100 09/03/16 20:00 145 20 144/85 91 Non-Rebreather 15 09/03/16 19:10 169 91 Nasal Cannula 2 09/03/16 19:07 196 18 134/70 90 Nasal Cannula 2 09/03/16 18:22 98.5 165 20 153/94 100 I/O 09/03/16 09/03/16 09/03/16 09/04/16 09/04/16 09/04/16 07:00 15:00 23:00 07:00 15:00 23:00 Intake Total 3633 ml Output Total 500 ml Balance 3133 ml Intake Oral 0 ml IV Total 3633 ml Output Urine Total 300 ml Gastric Drainage Total 200 ml # Bowel Movements 0 Imaging Last Impressions Chest X-Ray 09/04/16 0000 Signed Impressions: Service Date/Time: Sunday, September 04, 2016 12:45 - CONCLUSION: Normal examination with numerous catheters in good position. Artemio Cooper MD Head CT 09/03/16 [id number] Signed Impressions: Service Date/Time: Saturday, September 03, 2016 23:35 - CONCLUSION: Atrophy. No evidence of acute intracranial pathology. Warren Amos MD Laboratory Test 09/03/16 09/03/16 09/03/16 09/03/16 18:28 18:44 19:43 20:40 White Blood Count 6.7 TH/MM3 Red Blood Count 3.88 MIL/MM3 Hemoglobin 14.3 GM/DL Hematocrit 42.0 % Mean Corpuscular Volume 108.3 FL Mean Corpuscular Hemoglobin 36.9 PG Mean Corpuscular Hemoglobin 34.0 % Concent Red Cell Distribution Width 15.6 % Platelet Count 84 TH/MM3 Mean Platelet Volume 10.1 FL Neutrophils (%) (Auto) 86.7 % Lymphocytes (%) (Auto) 5.6 % Monocytes (%) (Auto) 7.4 % Eosinophils (%) (Auto) 0.0 % Basophils (%) (Auto) 0.3 % Neutrophils # (Auto) 5.8 TH/MM3 Lymphocytes # (Auto) 0.4 TH/MM3 Monocytes # (Auto) 0.5 TH/MM3 Eosinophils # (Auto) 0.0 TH/MM3 Basophils # (Auto) 0.0 TH/MM3 CBC Comment AUTO DIFF Differential Comment AUTO DIFF CONFIRMED Platelet Estimate LOW Platelet Morphology Comment NORMAL Prothrombin Time 11.7 SEC Prothromb Time International 1.1 RATIO Ratio Activated Partial 23.4 SEC Thromboplast Time Sodium Level 132 MEQ/L Potassium Level 6.0 MEQ/L 4.3 MEQ/L Chloride Level 91 MEQ/L Carbon Dioxide Level 17.3 MEQ/L Anion Gap 24 MEQ/L Blood Urea Nitrogen 11 MG/DL Creatinine 1.17 MG/DL Estimat Glomerular Filtration 67 ML/MIN Rate Random Glucose 252 MG/DL Calcium Level 9.6 MG/DL Phosphorus Level 2.1 MG/DL Magnesium Level 1.0 MG/DL Total Bilirubin 3.0 MG/DL Aspartate Amino Transf 243 U/L (AST/SGOT) Alanine Aminotransferase 117 U/L (ALT/SGPT) Alkaline Phosphatase 153 U/L Total Creatine Kinase 445 U/L Creatine Kinase MB 2.1 NG/ML Creatine Kinase MB % 0.5 % Troponin I LESS THAN 0.02 NG/ML B-Type Natriuretic Peptide 7 PG/ML Total Protein 9.0 GM/DL Albumin 4.5 GM/DL Lipase 106 U/L Thyroid Stimulating Hormone 2.510 uIU/ML 3rd Gen Ethyl Alcohol Level LESS THAN 3 MG/DL Ammonia 175 MCMOL/L Urine Color YELLOW Urine Turbidity CLEAR Urine pH 6.5 Urine Specific [place] 1.009 Urine Protein 100 mg/dL Urine Glucose (UA) 1000 mg/dL Urine Ketones 40 mg/dL Urine Occult Blood MOD Urine Nitrite NEG Urine Bilirubin NEG Urine Urobilinogen LESS THAN 2.0 MG/DL Urine Leukocyte Esterase NEG Urine RBC 7 /hpf Urine WBC 2 /hpf Urine Hyaline Casts 1 /lpf Urine Mucus FEW /lpf Microscopic Urinalysis Comment CULT NOT INDICATED Urine Opiates Screen NEG Urine Barbiturates Screen NEG Urine Amphetamines Screen NEG Urine Benzodiazepines Screen NEG Urine Cocaine Screen NEG Urine Cannabinoids Screen NEG Test 09/03/16 09/04/16 09/04/16 09/04/16 23:57 02:15 05:20 07:40 Nasal Screen MRSA (PCR) NEGATIVE White Blood Count 4.5 TH/MM3 Red Blood Count 3.03 MIL/MM3 Hemoglobin 11.6 GM/DL Hematocrit 32.4 % Mean Corpuscular Volume 106.9 FL Mean Corpuscular Hemoglobin 38.3 PG Mean Corpuscular Hemoglobin 35.8 % Concent Red Cell Distribution Width 15.1 % Platelet Count 59 TH/MM3 Mean Platelet Volume 9.1 FL Neutrophils (%) (Auto) 80.7 % Lymphocytes (%) (Auto) 5.7 % Monocytes (%) (Auto) 13.3 % Eosinophils (%) (Auto) 0.0 % Basophils (%) (Auto) 0.3 % Neutrophils # (Auto) 3.6 TH/MM3 Lymphocytes # (Auto) 0.3 TH/MM3 Monocytes # (Auto) 0.6 TH/MM3 Eosinophils # (Auto) 0.0 TH/MM3 Basophils # (Auto) 0.0 TH/MM3 CBC Comment AUTO DIFF Differential Comment AUTO DIFF CONFIRMED Platelet Estimate LOW Platelet Morphology Comment NORMAL Target Cells 1+ Prothrombin Time 12.0 SEC Prothromb Time International 1.1 RATIO Ratio Fibrinogen 237 mg/dL Sodium Level 140 MEQ/L Potassium Level 3.6 MEQ/L Chloride Level 100 MEQ/L Carbon Dioxide Level 31.0 MEQ/L Anion Gap 9 MEQ/L Blood Urea Nitrogen 16 MG/DL Creatinine 1.46 MG/DL Estimat Glomerular Filtration 52 ML/MIN Rate Random Glucose 142 MG/DL Lactic Acid Level 1.9 mmol/L Calcium Level 7.6 MG/DL Phosphorus Level 2.1 MG/DL Magnesium Level 1.1 MG/DL Total Bilirubin 3.2 MG/DL Aspartate Amino Transf 138 U/L (AST/SGOT) Alanine Aminotransferase 80 U/L (ALT/SGPT) Alkaline Phosphatase 101 U/L Total Creatine Kinase 421 U/L Creatine Kinase MB 2.3 NG/ML Creatine Kinase MB % 0.5 % Total Protein 6.2 GM/DL Albumin 3.2 GM/DL Blood Gas Puncture Site RT BRACHIAL Blood Gas Patient Temperature 98.6 Blood Gas HCO3 25 mmol/L Blood Gas Base Excess 1.1 mmol/L Blood Gas Oxygen Saturation 98 % Arterial Blood pH 7.45 Arterial Blood Partial 36 mmHg Pressure CO2 Arterial Blood Partial 279 mmHg Pressure O2 Arterial Blood Oxygen Content 14.4 Vol % Arterial Blood 1.5 % Carboxyhemoglobin Arterial Blood Methemoglobin 1.0 % Blood Gas Hemoglobin 10.0 G/DL Oxygen Delivery Device VENTILATOR Blood Gas Ventilator Setting SEE COMMENTS Blood Gas Inspired Oxygen 65 % Blood Type O POSITIVE Antibody Screen NEGATIVE Blood Bank Comment Date/Time Procedure Status Source Growth 09/04/16 02:15 Aerobic Blood Culture Received Blood Peripheral Pending 09/04/16 02:15 Anaerobic Blood Culture Received Blood Peripheral Pending Physical Examination HEENT: Pupils round and reactive to light; normocephalic; atraumatic; no jaundice. Throat is clear. Laceration on the tongue NECK: Neck is supple, no JVD, no lymphadenopathy. CHEST: Chest is clear to auscultation and percussion. CARDIAC: Regular rate and rhythm with no murmur gallop or rubs. ABDOMEN: Soft, nondistended, nontender; no hepatosplenomegaly; bowel sounds are present in all four quadrants. EXTREMITIES: No clubbing, cyanosis, or edema. SKIN: Normal; no rash; no jaundice. CLINICAL SYSTEMS EDUCATOR: Intubated unresponsive Assessment and Plan Plan Coffee-ground emesis is noted through NG tube with noted tongue laceration secondary to witnessed seizure disorder To clear the issue of possible GI bleed we will recommend upper endoscopy Patient is noted to be on vasopressors we will reevaluate in the morning if all is stable will proceed with an EGD In the meanwhile we do agree with current supportive measures Monitor labs and transfuse as needed Jean Acevedo MD Sep 04, 2016 10:15
[2016-09-04] MEDS: NOREPINEPHRINE 4 MG/D5W 250 ML IV SCH ×2 (11:15→20:15)
[2016-09-04 11:55] LABS: MAGNESIUM 2.2 MG/DL (1.5-2.5)
[2016-09-04] MEDS: RIFAXIMIN 550 MG TAB PO SCH ×2 (12:03→20:14)
--- NOTE | 2016-09-04 12:06 | MB ---
cc: OSMIN BREWSTER MD DATE OF CONSULTATION: 09/04/2016 REASON FOR CONSULTATION: New-onset atrial fibrillation. HISTORY OF PRESENT ILLNESS The patient is a 46-year-old gentleman with a history of alcohol abuse and apparently alcoholic cirrhosis for which his describes as being very serious but has improved over the last year so. The patient apparently had been quite depressed from losing his job and drinking heavily until a few days ago when his stomach was bothering him with significant abdominal pain and thus he stopped drinking. Yesterday his found him seizing and he was brought to the emergency department in atrial fibrillation with rapid ventricular response. He was started on Cardizem and eventually he converted back to sinus rhythm. He was intubated for airway protection due to his ongoing seizure activity and he is currently intubated and sedated. PAST MEDICAL HISTORY: As above. CURRENT MEDICATIONS 1. Lactulose 2. Rifaximin. 3. Ceftriaxone 4. Norepinephrine 5. Octreotide. 6. Protonix. 7. Ceftriaxone. ALLERGIES: NO KNOWN DRUG ALLERGIES. PHYSICAL EXAMINATION VITAL SIGNS: Afebrile, pulse 52, respiratory rate 16, BP 90/63 sating 99% on 2% FIO2. GENERAL: He is intubated and sedated. Neck: No JVD. Lungs: Decreased breath sounds on ventilator, sounds appreciated. Cardiovascular: Regular rate and rhythm. No murmurs appreciated. Abdomen is benign. Extremities: No edema. LABORATORY DATA Sodium was 140, potassium 3.6, chloride 100, bicarb 31.0, BUN 15, creatinine 1.46, glucose 142, AST 138, ALT 80, ammonia is 175. Troponin was negative. White count 4.5, hematocrit 32.4, platelets 59. EKG: EKG shows atrial fibrillation with rapid ventricular response of 193, diffuse ST changes. Telemetry shows sinus rhythm. IMPRESSION: New onset atrial fibrillation. The patient likely has alcoholic mediated atrial fibrillation, possibly exacerbated by his withdrawal symptoms. 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 He is clearly not a candidate for anticoagulation given his liver disease and thrombocytopenia as well as what appears to be ongoing GI bleeding, as significant blood is being returned from his NG tube. His blood pressures are low and he currently would not tolerate any rate control medication so will not add any additional medications at this time. Thus I do not have any further recommendations to add, though I will review his echocardiogram and be available as needed should further problems arise. Thank you again for the opportunity to participate in the patient's care. MD AMILCAR Richard/MENDEL /9:53 AM /11:39 AM
[2016-09-04] MEDS ORDERED: DEXTROSE 50% IN WATER 50 ML SYRINGE ONE (12:18)
--- NOTE | 2016-09-04 13:52 | RADRPT ---
EXAM DATE/TIME: 09/04/2016 12:45 [facility] COMPARISON: CHEST SINGLE AP, September 04, 2016, 3:45. INDICATIONS : PICC line verification. MEDICAL HISTORY : Seizures SURGICAL HISTORY : None. ENCOUNTER: Subsequent ACUITY: 2 days PAIN SCORE: Non-responsive. LOCATION: Chest. FINDINGS: A single view of the chest demonstrates the endotracheal tube, nasogastric tube and right-sided subcl cinthya central venous catheter are in excellent position. Lungs are clear.. The cardiomediastinal con tours are unremarkable. Osseous structures are intact. CONCLUSION: Normal examination with numerous catheters in good position. Artemio Cooper MD on September 04, 2016 at 13:50 Board Certified Radiologist. This report was verified electronically.
--- NOTE | 2016-09-04 14:10 | EKG ---
Date Performed: 09/03/2016 Time Performed: 18:17:18 PTAGE: 46 years EKG: ATRIAL FIBRILLATION WITH RAPID VENTRICULAR RESPONSE BORDERLINE LEFT AXIS DEVIATION INTRAVEN TRICULAR CONDUCTION DELAY DIFFUSE ST DEPRESSION, POSSIBLY RATE RELATED BUT COULD REPRESENT ISCHEMIA C linical correlation is recommended ABNORMAL ECG NO PREVIOUS TRACING DOCTOR: Murtaza Brunson Interpretating Date/Time 09/04/2016 14:10:10
--- NOTE | 2016-09-04 14:29 | MG ---
cc: LIVAN KIRK M.D. Lab No: [id number] Date: Age: 46 Sex: M Race: REFERRING: Yassine. ROOM: 445. Hyperventilation not done. Photic stimulation done. intubated, sedated on Diprivan 40 micrograms, Versed 10. Unable to turn off sedation. Deep tactile stimulation at the end of this study in all four extremities. Does not withdraw. Passive eye opening. No deviation. CT showing atrophy. This is a 46-year-old man who had a seizure x2 went into status and developed atrial fibrillation with rapid ventricular response, history of heavy alcohol use daily, liver disease. MEDICATIONS: Lactulose, magnesium, octreotide, pantoprazole, propofol, Ativan. DESCRIPTION OF RECORD: There is some artifact but predominately slowing of 3-4 Hz. EKG looks sinus to sinus bradycardia. Photic stimulation minimal driving response. No epileptiform features. IMPRESSION: Mild background slowing may be due to encephalopathic process. However, no epileptiform features in this one recording. Clinical correlation. MD TRAN Locke/DEVYN /12:49 PM /2:10 PM
[2016-09-05] VITALS (23 sets, daily range): BP systolic 94–128; BP diastolic 71–98; PULSE 52–90; RESP 12–20; TEMP 97.7–99.2; O2SAT 95–100
[2016-09-05] MEDS: cefTRIAXone INJ 1,000 MG in SODIUM CHLORIDE 0.9% INJ 100 ML IV SCH (00:21)
[2016-09-05] MEDS: PROPOFOL 1000 MG/100 ML INJ 100 ML IV SCH ×2 (02:41→09:30)
[2016-09-05] MEDS: LACTULOSE SYRUP 20 GM/30 ML CUP PO SCH ×4 (02:41→21:00)
[2016-09-05] MEDS: SODIUM CHLOR 0.9% 1000 ML INJ 1,000 ML IV SCH ×2 (03:06→17:12)
[2016-09-05] MEDS: CHLORHEXIDINE GLUCONATE 2 % 1 PACK (2 CLOTHS) TOP SCH (04:00)
[2016-09-05 04:26] LABS: HEMATOCRIT 23.7 % (39.0-51.0); MEAN CORPUSCULAR HGB CONC 34.8 % (32.0-36.0); PLATELET COUNT 52 TH/MM3 (150-450); RED BLOOD COUNT 2.11 MIL/MM3 (4.50-5.90); RED CELL DISTRIBUTION WIDTH 15.8 % (11.6-17.2); WHITE BLOOD COUNT 3.2 TH/MM3 (4.0-11.0)
[2016-09-05 04:27] LABS: HEMO FLAGS AUTO DIFF
[2016-09-05 05:00] LABS: BICARBONATE 20.5 MEQ/L (21.0-32.0); MAGNESIUM 1.5 MG/DL (1.5-2.5); TOTAL BILIRUBIN ADULT 1.7 MG/DL (0.2-1.0)
[2016-09-05 05:09] LABS: CALCIUM-PROTEIN CORRECTED 6.8 MG/DL (8.5-10.1)
[2016-09-05 05:10] LABS: POTASSIUM 2.8 MEQ/L (3.5-5.1)
[2016-09-05] MEDS: POTASSIUM CHLOR 40 MEQ PREMIX 100 ML IV PRN ×4 (05:11→17:02)
[2016-09-05 05:19] LABS: BANDS 11 % (0-6); BASOPHILS 1 % (0-2); CORRECTED NUCLEATED RBC 1 /100 WBC (0-0); NEUTROPHIL # MANUAL DIFF 2.8 TH/MM3 (1.8-7.7); POLYS (SEG NEUTROPHILS) 75 % (16-70); WBC DIFF SAMPLE 100
[2016-09-05 05:20] LABS: PLATELET ESTIMATE SMEAR LOW (NORMAL); PLATELET MORPHOLOGY NORMAL (NORMAL); SCAN/DIFF FINAL DIFF MANUAL; TEARDROP RBCS 1+ (NORMAL)
[2016-09-05] MEDS: PANTOPRAZOLE INJ 80 MG in SODIUM CHLORIDE 0.9% INJ 100 ML IV SCH ×2 (06:20→15:10)
[2016-09-05] MEDS: METOPROLOL TARTRATE 25 MG TAB PO SCH ×2 (09:00→21:00)
[2016-09-05] MEDS: RIFAXIMIN 550 MG TAB PO SCH ×2 (09:30→21:00)
[2016-09-05] MEDS ORDERED: PROPOFOL 200 MG/20 ML AMP IV ONE (10:42)
--- NOTE | 2016-09-05 11:07 | HHI.CCPN ---
Subjective Remarks/Hospital Course 46 y/o man presented to ED after seizure X 2. Heavy ETOH and liver disease history, still drinking. Subsequently developed status seizures requiring intubation and mechanical ventilation. Bite to tongue caused 3 cm laceration requiring suture repair due to bleeding. NG with > 300 MLs old blood. 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 Developed a-fib with RVR (arrived in sinus) . Low Mag, low phos. SUBJECTIVE 09/04/16: Remains intubated sedated. On 7.5 mics per minute of Levophed. Old blood from NG tube. GI consulted. Continuing IV Protonix and octreotide. Transfuse 1 unit of platelets 09/05/16: Remains intubated and heavily sedated with propofol and Versed. No seizures reported. Remains on Levophed at 2 mcg/m. EGD planned for today, possible weaning trials after EGD. Urine output excellent creatinine has increased from 1.4 to 1.6 Objective Vital Signs Date Time Temp Pulse Resp B/P Pulse Ox O2 Delivery O2 Flow Rate FiO2 09/05/16 07:35 99 30 09/05/16 04:00 98.1 66 16 110/82 09/03/16 23:31 Ventilator 09/03/16 20:00 15 Intake and Output 09/04/16 09/04/16 09/05/16 08:00 16:00 00:00 Intake Total 3633 ml 3707 ml Output Total 500 ml 1005 ml Balance 3133 ml 2702 ml Result Diagram: 09/05/16 0407 09/05/16 0407 Objective Remarks Gen: Ill-appearing, intubated heavily sedated Heent: Oozing from right tongue laceration, 3 cm. NGT with coffee ground output Neck; Supple, orally intubated. Lungs: Diffuse rhonchi, good air movement on vent. Hear: NSR, no murmurs No JVD. Abdomen: Moderately distended. Quiet. No guarding. Extremities: Tepid, adequately perfused. Neuro: Intubated heavily sedated. Limits neuro exam Urinary Catheter: Yes Assessment to: Continue A/P Problem List: (1) Respiratory failure ICD Code: J96.90 Status: Acute (2) Status epilepticus ICD Code: G40.901 Status: Acute (3) Hepatic failure due to alcoholism ICD Code: K70.40 Status: Acute (4) Tongue laceration ICD Code: S01.512A Status: Acute (5) Upper GI hemorrhage ICD Code: K92.2 Status: Acute (6) EtOH dependence ICD Code: F10.20 Status: Acute (7) Hypomagnesemia ICD Code: E83.42 Status: Acute (8) Hypophosphatemia ICD Code: E83.39 Status: Acute Assessment and Plan Assessment: 1. Acute respiratory failure 2. Status epilepticus. 3. UGI bleed (Swallowed from mouth or primary intestinal) 4. Paroxysmal a-fib with RVR. 5. Electrolyte imbalance. 6. Hepatic failure 7. Hyperammonemia 170s 8. Alcohol dependence 9. Tongue laceration Plan: RESP: PRVC vent mode. SBT after EGD completed. DuoNeb every 6 hours and when necessary, ventilator bundle CV: Lopressor PO. Cardizem gtt had been weaned off. Replace Mag, Phos. No anticoagulation due to GI bleed and from cytopenia. LEvophed to keep MAP>65 NEURO: Propofol at 50 mics. Versed gtt at 10 mg/hr. Ativan for breakthrough seizures. Seizures most likely from alcohol withdrawal, EEG did not show any active seizures. Continue lactulose and rifaximin. Check rpt ammonia level. Supplement thiamine GI: NG to LIS, follow blood output. Protonix and Octreotide Gtts. Lactulose qid, rifaximin. GI consulted, EGD today. Ceftriaxone for SBP prophylaxis /Renal: Montano to CBD. Hourly output. Slight increase in creatinine noted, check CMP daily ENDO: Serial glucose with liver failure. HEME: Serial Hgb. Coags, including fibrinogen. Type and screen. s/p 1 unit of platelets ID: Cover with ceftriaxone for bleed and hepatic failure. Nutrition: Prealbumin. TFs after bleeding stops and if remaining intubated PX: Protonix gtt, no chemical DVT prophylaxis, continue SCDS. Overall impression: Critically ill alcoholic with status withdrawal seizures, atrial fibrillation with RVR, and respiratory failure. It is unclear if he has an active GI bleed or if that is swallow blood from his tongue laceration. Ammonia indicates hepatic failure, possibly exacerbated by GI blood.Unstable and precarious hemodynamics. Prognosis guarded. Critical Care 40 mins aside from procedures. Problem Qualifiers (1) Respiratory failure: Qualified Code: J96.01 - Acute respiratory failure with hypoxia (2) Tongue laceration: Qualified Code: S01.512A - Tongue laceration, initial encounter Ovi Metzger MD Sep 05, 2016 11:07
[2016-09-05] MEDS: SODIUM CHLORIDE 0.9% FLUSH 5 ML FLUSH IV FLUSH SCH ×2 (11:49→21:00)
[2016-09-05] MEDS: CHLORHEXIDINE 0.12% (ORAL KIT) 15 ML CUP MT SCH ×2 (11:49→17:41)
[2016-09-05] MEDS: OCTREOTIDE INJ 500 MCG in SODIUM CHLORID 0.9% 500 ML INJ 499.5 ML IV SCH ×2 (11:51→15:10)
[2016-09-05] MEDS: DEXMEDETOMIDINE INJ 50 ML IV SCH ×4 (11:52→21:30)
[2016-09-05] MEDS ORDERED: VANCOMYCIN INJ 1,250 MG in SODIUM CHLOR 0.9% 250 ML INJ 250 ML IV ONE (12:00)
--- NOTE | 2016-09-05 13:03 | EC ---
Study Study Date:09/05/2016 STUDY CONCLUSIONS SUMMARY - Left ventricle: The cavity size was moderately dilated. Wall thickness was normal. Systolic function was severely reduced by visual assessment. The estimated ejection fraction was in the range of 25% to 30%. Diffuse hypokinesis. - Aortic root: The aortic root was moderately dilated. - Tricuspid valve: Mild-moderate regurgitation. - Pulmonary arteries: PA peak pressure: 36mm Hg (S). If LV function is below 40, please consider prescribing an ACEI or ARB or document rationale for non-use. PROCEDURE DATA STUDY STATUS: Elective. Procedure: Transthoracic echocardiography. Image quality was good. Scanning was performed from the parasternal, apical, and subcostal acoustic windows. Study completion: The patient tolerated the procedure well. Transthoracic echocardiography. M-mode, complete 2D, complete spectral Doppler, and color Doppler. Patient status: Inpatient. CARDIAC ANATOMY LEFT VENTRICLE: The cavity size was moderately dilated. Wall thickness was normal. Systolic function was severely reduced by visual assessment. The estimated ejection fraction was in the range of 25% to 30%. Diffuse hypokinesis. AORTIC VALVE: Trileaflet; mildly thickened, mildly calcified leaflets. Doppler: Transvalvular velocity was within the normal range. There was no stenosis. No regurgitation. AORTA: Aortic root: The aortic root was moderately dilated. MITRAL VALVE: Structurally normal valve. Doppler: Transvalvular velocity was within the normal range. There was no evidence for stenosis. Trace regurgitation. LEFT ATRIUM: The atrium was normal in size. RIGHT VENTRICLE: The cavity size was normal. Wall thickness was normal. PULMONIC VALVE: Doppler: Transvalvular velocity was within the normal range. There was no evidence for stenosis. No regurgitation. TRICUSPID VALVE: Structurally normal valve. Doppler: Transvalvular velocity was within the normal range. Mild-moderate regurgitation. PULMONARY ARTERY: Systolic pressure was at the upper limits of normal. RIGHT ATRIUM: The atrium was normal in size. PERICARDIUM: There was no pericardial effusion. SYSTEMIC VEINS: Inferior vena cava: The vessel was normal in size. BASIC MEASUREMENTS ADULT Normal Left ventricle LV internal dimension, ED, chordal level, 48.8 mm 43-52 PLAX LV internal dimension, ES, chordal level, *40.7 mm 23-38 PLAX Fractional shortening, chordal level, PLAX *17 % >29 LV posterior wall thickness, ED 7.45 mm IVS/LVPW ratio, ED 1.21 <1.3 Ventricular septum Septal thickness, ED 8.98 mm Aortic valve Leaflet separation *27 mm 15-26 Left atrium Anterior-posterior dimension 35 mm Right ventricle RV internal dimension, ED, PLAX 22.2 mm 19-38 BASIC MEASUREMENTS ADULT Normal Aortic valve Leaflet separation *27 mm 15-26 Aorta Root diameter, ED *41 mm 20-37 DOPPLER MEASUREMENTS ADULT Normal Main pulmonary artery Pressure, S *36 mm Hg =30 Mitral valve Peak E-wave velocity 61.1 cm/s Peak A-wave velocity 84.9 cm/s Peak E/A ratio 0.7 Tricuspid valve Regurgitant peak velocity 256 cm/s Peak RV-RA gradient, S 26 mm Hg Maximal regurgitant velocity 256 cm/s Systemic veins Estimated CVP 10 mm Hg Right ventricle RV pressure, S *36 mm Hg <30 LEGEND: Mean values are shown as u=mean value. Asterisk (*) gannon values outside specified normal range. Prepared and signed by Artemio Orellana [id number]
[2016-09-05] MEDS: MIDAZOLAM 100 MG/ML INJ 100 ML IV SCH (14:50)
[2016-09-05] MEDS ORDERED: CALCIUM GLUCONATE INJ 2 GM in DEXTROSE 5% IN WATER 100ML INJ 100 ML IV ONE ×2 (17:15)
[2016-09-05] MEDS: LORazepam 2 MG/ML VIAL IV PRN ×5 (19:15→22:19)
--- NOTE | 2016-09-05 19:50 | EKG ---
Date Performed: 09/03/2016 Time Performed: 19:33:52 PTAGE: 46 years EKG: SINUS TACHYCARDIA, POSSIBLE ATRIAL FLUTTER MINIMAL ST DEPRESSION ABNORMAL RHYTHM ECG PREVIOUS TRACING : 09/03/2016 18.17 DOCTOR: Efrain Hawkins Interpretating Date/Time 09/05/2016 19:41:54
[2016-09-05] MEDS ORDERED: chlordiazePOXIDE 25 MG CAP PO PRN (21:00)
[2016-09-05] MEDS ORDERED: DEXMEDETOMIDINE INJ 50 ML IV SCH (21:00)
[2016-09-05] MEDS: DEXMEDETOMIDINE INJ 1,000 MCG in SODIUM CHLOR 0.9% 250 ML INJ 240 ML IV SCH (22:21)
[2016-09-06] VITALS (8 sets, daily range): BP systolic 108–120; BP diastolic 80–93; PULSE 73–90; RESP 12–20; TEMP 97.5–102.5; O2SAT 94–99
[2016-09-06] MEDS: LORazepam 2 MG/ML VIAL IV PRN ×8 (00:58→23:58)
[2016-09-06] MEDS: cefTRIAXone INJ 1,000 MG in SODIUM CHLORIDE 0.9% INJ 100 ML IV SCH (00:58)
[2016-09-06] MEDS: LACTULOSE SYRUP 20 GM/30 ML CUP PO SCH ×4 (03:00→20:32)
[2016-09-06] MEDS: DEXMEDETOMIDINE INJ 1,000 MCG in SODIUM CHLOR 0.9% 250 ML INJ 240 ML IV SCH ×4 (03:40→20:48)
[2016-09-06] MEDS: CHLORHEXIDINE GLUCONATE 2 % 1 PACK (2 CLOTHS) TOP SCH (04:00)
[2016-09-06] MEDS: PANTOPRAZOLE INJ 80 MG in SODIUM CHLORIDE 0.9% INJ 100 ML IV SCH (05:03)
[2016-09-06] MEDS: SODIUM CHLOR 0.9% 1000 ML INJ 1,000 ML IV SCH ×2 (05:17→21:57)
[2016-09-06 06:19] LABS: BASOPHIL % 0.7 % (0.0-2.0); HEMATOCRIT 28.7 % (39.0-51.0); LYMPH % 13.6 % (9.0-44.0); LYMPHOCYTE # 0.6 TH/MM3 (1.0-4.8); MEAN CELL VOLUME 111.2 FL (80.0-100.0); MEAN CORPUSCULAR HEMOGLOBIN 37.7 PG (27.0-34.0); MEAN CORPUSCULAR HGB CONC 33.9 % (32.0-36.0); MONO % 11.5 % (0.0-8.0); NEUT % 73.2 % (16.0-70.0); PLATELET COUNT 64 TH/MM3 (150-450); RED BLOOD COUNT 2.58 MIL/MM3 (4.50-5.90); RED CELL DISTRIBUTION WIDTH 14.8 % (11.6-17.2); WHITE BLOOD COUNT 4.1 TH/MM3 (4.0-11.0)
[2016-09-06 06:25] LABS: HEMO FLAGS AUTO DIFF
--- NOTE | 2016-09-06 06:25 | RADRPT ---
EXAM DATE/TIME: 09/06/2016 04:53 [facility] COMPARISON: CHEST SINGLE AP, September 04, 2016, 12:45. INDICATIONS : Shortness of breath. MEDICAL HISTORY : Seizures. SURGICAL HISTORY : None. ENCOUNTER: Subsequent ACUITY: 4 - 6 days PAIN SCORE: Non-responsive. LOCATION: Bilateral chest FINDINGS: There has been interval extubation and removal of nasogastric tube. Right arm PICC line is stable and satisfactory position. There is worsening infiltrate in the right lung base. Slight improvement in l eft base aeration. Accounting for rotation, cardiac contours are grossly stable. CONCLUSION: Developing right base parenchymal opacity. Yassine Souza MD on September 06, 2016 at 6:23 Board Certified Radiologist. This report was verified electronically.
[2016-09-06 06:40] LABS: ALKALINE PHOSPHATASE 93 U/L (45-117); ALT (GPT) 79 U/L (12-78); ANION GAP 9 MEQ/L (5-15); AST (GOT) 164 U/L (15-37); BLOOD UREA NITROGEN 14 MG/DL (7-18); CHLORIDE 111 MEQ/L (98-107); GLOMERULAR FILTRATION RATE 75 ML/MIN (>89); MAGNESIUM 1.2 MG/DL (1.5-2.5); SODIUM (NA) 147 MEQ/L (136-145); TOTAL BILIRUBIN ADULT 2.5 MG/DL (0.2-1.0)
--- NOTE | 2016-09-06 06:52 | HHI.CCPN ---
Subjective Remarks/Hospital Course 46 y/o man presented to ED after seizure X 2. Heavy ETOH and liver disease history, still drinking. Subsequently developed status seizures requiring intubation and mechanical ventilation. Bite to tongue caused 3 cm laceration requiring suture repair due to bleeding. NG with > 300 MLs old blood. 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 Developed a-fib with RVR (arrived in sinus) . Low Mag, low phos. SUBJECTIVE 09/04/16: Remains intubated sedated. On 7.5 mics per minute of Levophed. Old blood from NG tube. GI consulted. Continuing IV Protonix and octreotide. Transfuse 1 unit of platelets 09/05/16: Remains intubated and heavily sedated with propofol and Versed. No seizures reported. Remains on Levophed at 2 mcg/m. EGD planned for today, possible weaning trials after EGD. Urine output excellent creatinine has increased from 1.4 to 1.6 09/06: Went into [place] DTs overnight. Now on high dose Precedex and Ativan PRN. Sedated heavily but wakes up to stimulation, moves extremities. Creat has normalized. EGD showed esophagitis. 2 D Echo EF 25-30. Diffuse hypokinesis, mod aortic root dilation. ? Alcohol induced CM Objective Vital Signs Date Time Temp Pulse Resp B/P Pulse Ox O2 Delivery O2 Flow Rate FiO2 09/06/16 03:00 97.5 73 12 120/93 98 09/05/16 20:37 21 09/05/16 15:27 Nasal Cannula 2.00 Intake and Output 09/05/16 09/05/16 09/06/16 08:00 16:00 00:00 Intake Total 2866 ml 2589 ml Output Total 3400 ml 3400 ml Balance -534 ml -811 ml Result Diagram: 09/06/16 0500 09/06/16 0500 Objective Remarks Gen: Ill-appearing, heavily sedated on Precedex and Ativan Heent: No Oozing from right tongue laceration, 3 cm. Neck: Supple, . Lungs: Few rhonchi, good air movement on vent. Hear: NSR, no murmurs No JVD. Abdomen: Moderately distended.No guarding. Extremities: Tepid, adequately perfused. Neuro: Heavily sedated with Precedex. Moves extremities to sternal rub Urinary Catheter: Yes Assessment to: Continue A/P Problem List: (1) Respiratory failure ICD Code: J96.90 Status: Acute (2) Status epilepticus ICD Code: G40.901 Status: Acute (3) Hepatic failure due to alcoholism ICD Code: K70.40 Status: Acute (4) Tongue laceration ICD Code: S01.512A Status: Acute (5) Upper GI hemorrhage ICD Code: K92.2 Status: Acute (6) EtOH dependence ICD Code: F10.20 Status: Acute (7) Hypomagnesemia ICD Code: E83.42 Status: Acute (8) Hypophosphatemia ICD Code: E83.39 Status: Acute Assessment and Plan Assessment: Acute respiratory failure-resolved Severe alcohol withdrawal/DTs Status epilepticus-resolved UGI bleed/Esophagitis Paroxysmal a-fib with RVR, now NSR Electrolyte imbalance. Hepatic failure Hyperammonemia 170s-resolved Acute kidney failure, improving Alcohol dependence Tongue laceration GPC in 1/4 bottles probably contamination Plan: RESP: DuoNeb every 6 hours and when necessary, ventilator bundle. IS as tolerated CV: Lopressor PO. Cardizem gtt had been weaned off. Replace Mag, Phos. No anticoagulation due to GI bleed and thrombocytopenia. Echo EF 25-30, mod aortic root dilation. Reconsult Dr. Bateman. 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 Ativan for breakthrough seizures, withdrawal. Seizures most likely from alcohol withdrawal, EEG did not show any active seizures. Schdul.ed Librium when patient can take PO Continue lactulose and rifaximin. Rpt ammonia level normal. Supplement thiamine GI: DC Protonix and Octreotide Gtts. Start Protonix 40 I q12. Lactulose qid, rifaximin. EGD 09/05 No varices, esophagitis per prelim report. Ceftriaxone for SBP prophylaxis /Renal: Montano to CBD. Hourly output. AKF has resolved ENDO: Serial glucose with liver failure. HEME: Serial Hgb. Coags, including fibrinogen. Type and screen. s/p 1 unit of platelets ID: Cover with ceftriaxone for bleed and hepatic failure. 1/4 bottles GPC probable contaminant Nutrition: NPO for now. Swallow eval and PO diet when more awake PX: Protonix IV, no chemical DVT prophylaxis, continue SCDS. Overall impression: Critically ill alcoholic with status withdrawal seizures, atrial fibrillation with RVR, and respiratory failure. Now with profound alcohol withdrawal Critical Care 35 mins aside from procedures. Problem Qualifiers (1) Respiratory failure: Qualified Code: J96.01 - Acute respiratory failure with hypoxia (2) Tongue laceration: Qualified Code: S01.512A - Tongue laceration, initial encounter Ovi Metzger MD Sep 06, 2016 06:52
[2016-09-06] MEDS: CHLORHEXIDINE 0.12% (ORAL KIT) 15 ML CUP MT SCH ×2 (08:00→20:00)
[2016-09-06 08:23] LABS: PLATELET ESTIMATE SMEAR LOW (NORMAL); PLATELET MORPHOLOGY NORMAL (NORMAL); SCAN/DIFF AUTO DIFF CONFIRMED
[2016-09-06] MEDS: METOPROLOL TARTRATE 25 MG TAB PO SCH ×2 (09:00→20:33)
[2016-09-06] MEDS: RIFAXIMIN 550 MG TAB PO SCH ×2 (09:00→20:33)
[2016-09-06] MEDS: chlordiazePOXIDE 25 MG CAP PO SCH ×2 (09:00→17:00)
[2016-09-06] MEDS: PANTOPRAZOLE SODIUM 40 MG VIAL IV PUSH SCH ×2 (10:00→17:59)
[2016-09-06] MEDS: SODIUM CHLORIDE 0.9% FLUSH 5 ML FLUSH IV FLUSH SCH ×2 (10:00→20:32)
[2016-09-06] MEDS: LISINOPRIL 5 MG TAB PO SCH (13:30)
--- NOTE | 2016-09-06 13:34 | PD.CARD.PN ---
Subjective Subjective Remarks Extubated but sedated/ undergoing DTs. Objective Medications Administered Medications Medications (Trade) Dose Ordered Sig/Manuel Route PRN Reason Start Time Stop Time Status Last Admin Dose Admin Potassium Chloride (KCl 40 Meq Premix Inj) 100 ml @ 50 mls/hr Q2H PRN IV For Potassium 2.8 - 3.2 mEq/L 09/03/16 22:15 09/05/16 17:02 Chlorhexidine Gluconate 15 ml 15 ml BID@08,20 MT 09/04/16 08:00 09/05/16 17:41 Sodium Chloride (NS 1000 ml Inj) 1,000 ml @ 60 mls/hr [id number] IV 09/03/16 23:00 09/06/16 05:17 IV Flush (NS Flush) 2 ml BID IV FLUSH 09/04/16 09:00 09/06/16 10:00 Chlorhexidine Gluconate (Chlorhexidine 2% Cloth) 3 pack Taper DAILY@04 TOP 09/04/16 04:00 08/31/17 03:59 09/06/16 04:00 Lactulose 30 ml 30 ml Q6H PO 09/04/16 09:00 09/05/16 09:30 Ceftriaxone Sodium/Sodium Chloride (Rocephin Inj/NS Inj) 100 ml @ 200 mls/hr Q24H IV 09/03/16 23:00 09/06/16 00:58 Rifaximin (Xifaxan) 550 mg BID PO 09/04/16 11:00 09/05/16 09:30 IV Flush (NS Flush) See Protocol DAILY IVF 09/05/16 09:00 09/06/16 10:02 Lorazepam 4 mg 4 mg Q15M PRN IV Agitation/Sedation 09/05/16 21:00 09/06/16 12:00 Dexmedetomidine HCl/Sodium Chloride (Precedex Inj/NS 250 ml Inj) 250 ml @ 0 mls/hr TITRATE IV 09/05/16 21:00 09/06/16 10:23 Pantoprazole Sodium (Protonix Inj) 40 mg Q12H IV PUSH 09/06/16 07:00 09/06/16 10:00 Vital Signs / I&O Vital Signs Date Time Temp Pulse Resp B/P Pulse Ox O2 Delivery O2 Flow Rate FiO2 09/06/16 11:00 76 09/06/16 11:00 98.9 76 20 111/80 99 09/06/16 08:17 94 Nasal Cannula 4.00 09/06/16 08:00 99.0 74 18 117/91 99 09/06/16 08:00 74 09/06/16 03:00 97.5 73 12 120/93 98 09/06/16 03:00 73 09/05/16 23:00 76 09/05/16 23:00 99.0 75 12 126/98 98 09/05/16 20:37 96 21 09/05/16 19:00 99.2 68 20 128/86 97 09/05/16 19:00 90 09/05/16 18:00 71 09/05/16 17:00 65 09/05/16 16:00 98.3 73 16 96/71 99 09/05/16 16:00 73 09/05/16 15:27 99 Nasal Cannula 2.00 09/05/16 15:15 99 Nasal Cannula 3 09/05/16 15:07 Nasal Cannula 30 09/05/16 15:07 99 30 09/05/16 13:50 96 30 I/O 09/05/16 09/05/16 09/05/16 09/06/16 09/06/16 09/06/16 07:00 15:00 23:00 07:00 15:00 23:00 Intake Total 2866 ml 2589 ml 1760 ml Output Total 3400 ml 3400 ml 4500 ml Balance -534 ml -811 ml -2740 ml Intake Oral 0 ml 300 ml 240 ml IV Total 2866 ml 2289 ml 1520 ml Output Urine Total 3350 ml 3400 ml 4400 ml Stool Total 100 ml Gastric Drainage Total 50 ml # Bowel Movements 0 2 2 Physical Exam GENERAL: sedated/disoriented CARDIOVASCULAR: Regular rate and rhythm without murmurs, gallops, or rubs. RESPIRATORY: Clear to auscultation. Breath sounds equal bilaterally. No wheezes , rales, or rhonchi. GASTROINTESTINAL: Abdomen soft, non-tender, nondistended. Normal active bowel sounds MUSCULOSKELETAL: Extremities without clubbing, cyanosis, or edema. NEURO: sedated/disoriented Laboratory Laboratory Tests Test 09/06/16 05:00 White Blood Count 4.1 TH/MM3 Red Blood Count 2.58 MIL/MM3 Hemoglobin 9.7 GM/DL Hematocrit 28.7 % Mean Corpuscular Volume 111.2 FL Mean Corpuscular Hemoglobin 37.7 PG Mean Corpuscular Hemoglobin 33.9 % Concent Red Cell Distribution Width 14.8 % Platelet Count 64 TH/MM3 Mean Platelet Volume 9.6 FL Neutrophils (%) (Auto) 73.2 % Lymphocytes (%) (Auto) 13.6 % Monocytes (%) (Auto) 11.5 % Eosinophils (%) (Auto) 1.0 % Basophils (%) (Auto) 0.7 % Neutrophils # (Auto) 3.0 TH/MM3 Lymphocytes # (Auto) 0.6 TH/MM3 Monocytes # (Auto) 0.5 TH/MM3 Eosinophils # (Auto) 0.0 TH/MM3 Basophils # (Auto) 0.0 TH/MM3 CBC Comment AUTO DIFF Differential Comment AUTO DIFF CONFIRMED Platelet Estimate LOW Platelet Morphology Comment NORMAL Sodium Level 147 MEQ/L Potassium Level 4.0 MEQ/L Chloride Level 111 MEQ/L Carbon Dioxide Level 27.0 MEQ/L Anion Gap 9 MEQ/L Blood Urea Nitrogen 14 MG/DL Creatinine 1.07 MG/DL Estimat Glomerular Filtration 75 ML/MIN Rate Random Glucose 128 MG/DL Calcium Level 7.6 MG/DL Magnesium Level 1.2 MG/DL Total Bilirubin 2.5 MG/DL Aspartate Amino Transf 164 U/L (AST/SGOT) Alanine Aminotransferase 79 U/L (ALT/SGPT) Alkaline Phosphatase 93 U/L Total Protein 6.6 GM/DL Albumin 3.0 GM/DL Imaging Last Impressions Chest X-Ray 09/06/16 0600 Signed Impressions: Service Date/Time: Tuesday, September 06, 2016 04:53 - CONCLUSION: Developing right base parenchymal opacity. Yassine Souza MD Head CT 09/03/16 1855 Signed Impressions: Service Date/Time: Saturday, September 03, 2016 23:35 - CONCLUSION: Atrophy. No evidence of acute intracranial pathology. Warren Amos MD Assessment and Plan Problem List: (1) Cardiomyopathy Assessment and Plan: presumptive alcoholic cardiomyopathy; pt not a candidate for invasive procedures at this time regardless; medical mgt. (2) Aortic root enlargement Assessment and Plan: will get a CTA chest but very unlikely to be a surgical candidate; on BB (3) EtOH dependence (4) Hepatic failure due to alcoholism (5) Status epilepticus Assessment and Plan will sign off, please call with questions. Den Mchugh MD Sep 06, 2016 13:34
[2016-09-06] MEDS ORDERED: PILL SPLITTER OTHER PRN (13:45)
[2016-09-06] MEDS ORDERED: DEXMEDETOMIDINE INJ 50 ML ONE (19:48)
[2016-09-06 23:56] LABS: AUTOMATED NEUTROPHIL # 3.2 TH/MM3 (1.8-7.7); BASOPHIL # 0.1 TH/MM3 (0-0.2); BASOPHIL % 1.5 % (0.0-2.0); EOSINOPHIL % 0.4 % (0.0-4.0); HEMATOCRIT 28.9 % (39.0-51.0); LYMPH % 16.1 % (9.0-44.0); LYMPHOCYTE # 0.8 TH/MM3 (1.0-4.8); MEAN CELL VOLUME 111.1 FL (80.0-100.0); MEAN CORPUSCULAR HGB CONC 34.2 % (32.0-36.0); MONO % 15.9 % (0.0-8.0); NEUT % 66.1 % (16.0-70.0); PLATELET COUNT 75 TH/MM3 (150-450); RED CELL DISTRIBUTION WIDTH 14.9 % (11.6-17.2); WHITE BLOOD COUNT 4.8 TH/MM3 (4.0-11.0)
[2016-09-06 23:57] LABS: HEMO FLAGS DIFF FINAL
[2016-09-07] VITALS (9 sets, daily range): BP systolic 88–106; BP diastolic 59–83; PULSE 9–85; RESP 14–18; TEMP 99–101.5; O2SAT 96–100
[2016-09-07 00:18] LABS: BICARBONATE 26.1 MEQ/L (21.0-32.0); CALCIUM-PROTEIN CORRECTED 7.6 MG/DL (8.5-10.1); MAGNESIUM 0.9 MG/DL (1.5-2.5); POTASSIUM 3.5 MEQ/L (3.5-5.1); TOTAL BILIRUBIN ADULT 2.6 MG/DL (0.2-1.0)
[2016-09-07] MEDS: ACETAMINOPHEN 1000 MG/100 ML VIAL IV PRN ×2 (00:26→09:20)
[2016-09-07] MEDS: cefTRIAXone INJ 1,000 MG in SODIUM CHLORIDE 0.9% INJ 100 ML IV SCH (00:26)
[2016-09-07] MEDS: chlordiazePOXIDE 25 MG CAP PO SCH ×3 (00:27→15:31)
[2016-09-07 00:28] LABS: BLOOD, URINE MOD (NEG); GLUCOSE,URINE NEG (NEG); KETONE, URINE 10 mg/dL (NEG); MUCUS URINE FEW /lpf (OCC); NITRITE,URINE NEG (NEG); PH, URINE 5.5 (5.0-8.5); SQUAMOUS EPITHELIAL CELL URINE <1 /hpf (0-5); URINE COLOR YELLOW (YELLW/STRAW)
[2016-09-07 00:36] LABS: COMMENT (UR) CATH-CULT NOT IND; CULTURE IF INDICATED CATH CULTURE NOT IND
[2016-09-07] MEDS ORDERED: ATROPINE SULFATE 1 MG/10 ML SYRINGE ONE (01:49)
[2016-09-07] MEDS ORDERED: IOHEXOL 350 MG/ML 10 ML VIAL (for RAD DIAG) IV ONE (02:10)
[2016-09-07] MEDS: MAGNESIUM SULFATE INJ 4 GM in SODIUM CHLORIDE 0.9% INJ 92 ML IV PRN (02:21)
[2016-09-07] MEDS: POTASSIUM CHLOR 40 MEQ PREMIX 100 ML IV PRN (02:21)
[2016-09-07] MEDS: DEXMEDETOMIDINE INJ 1,000 MCG in SODIUM CHLOR 0.9% 250 ML INJ 240 ML IV SCH ×2 (02:25→08:25)
--- NOTE | 2016-09-07 02:47 | RADRPT ---
EXAM DATE/TIME: 09/07/2016 02:00 [facility] COMPARISON: No previous studies available for comparison. INDICATIONS : Enlarged aortic root evaluate for aneurysm. IV CONTRAST: 73 cc Omnipaque 350 (iohexol) IV RADIATION DOSE: 17.66 CTDIvol (mGy) MEDICAL HISTORY : None SURGICAL HISTORY : None. ENCOUNTER: Initial ACUITY: 2 days PAIN SCALE: Non-responsive LOCATION: Bilateral chest TECHNIQUE: Volumetric scanning was performed using a multi-row detector CT scanner. The data was post processed with a variety of visualization algorithms including full volume maximum intensity projection, multi -planar sliding thin slab reformation, curved planar reformation, and surface rendering techniques. Using automated exposure control and adjustment of the mA and/or kV according to patient size, radiat ion dose was kept as low as reasonably achievable to obtain optimal diagnostic quality images. FINDINGS: There is mild dilatation of the ascending thoracic aorta to a diameter of 4.4 cm. The arch caliber no rmalizes and the remainder of the aorta is normal in caliber and appearance. No evidence of stenosis or dissection. The aortic branch vessels are widely patent throughout. The iliac and visualized thigh vessels are normal. Elsewhere, note is made of right lower lobe airspace infiltrate and mild bibasilar atelectasis. In the abdomen, the liver is enlarged with heterogeneous steatosis. There is a small nonobstructing c alculus in the upper pole collecting system of the right kidney. There is minimal free pelvic fluid. CONCLUSION: Mild aneurysmal dilatation of the ascending thoracic aorta. Yassine Souza MD on September 07, 2016 at 2:40 Board Certified Radiologist. This report was verified electronically.
[2016-09-07] MEDS: LACTULOSE SYRUP 20 GM/30 ML CUP PO SCH ×4 (03:00→20:43)
[2016-09-07] MEDS: LORazepam 2 MG/ML VIAL IV PRN ×8 (03:41→23:50)
[2016-09-07] MEDS: CHLORHEXIDINE GLUCONATE 2 % 1 PACK (2 CLOTHS) TOP SCH (04:00)
--- NOTE | 2016-09-07 06:12 | RADRPT ---
EXAM DATE/TIME: 09/07/2016 05:17 [facility] COMPARISON: CHEST SINGLE AP, September 06, 2016, 4:53. INDICATIONS : Shortness of breath. MEDICAL HISTORY : Seizures SURGICAL HISTORY : None. ENCOUNTER: Subsequent ACUITY: 4 - 6 days PAIN SCORE: Non-responsive. LOCATION: Bilateral chest FINDINGS: Right arm PICC line is stable in satisfactory position. There has been improvement in aeration with d ecrease in confluence of right lung infiltrate. Cardiomediastinal contours are stable. CONCLUSION: Improving aeration. Yassine Souza MD on September 07, 2016 at 6:10 Board Certified Radiologist. This report was verified electronically.
--- NOTE | 2016-09-07 06:53 | HHI.CCPN ---
Subjective Remarks/Hospital Course 46 y/o man presented to ED after seizure X 2. Heavy ETOH and liver disease history, still drinking. Subsequently developed status seizures requiring intubation and mechanical ventilation. Bite to tongue caused 3 cm laceration requiring suture repair due to bleeding. NG with > 300 MLs old blood. 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 Developed a-fib with RVR (arrived in sinus) . Low Mag, low phos. SUBJECTIVE 09/04/16: Remains intubated sedated. On 7.5 mics per minute of Levophed. Old blood from NG tube. GI consulted. Continuing IV Protonix and octreotide. Transfuse 1 unit of platelets 09/05/16: Remains intubated and heavily sedated with propofol and Versed. No seizures reported. Remains on Levophed at 2 mcg/m. EGD planned for today, possible weaning trials after EGD. Urine output excellent creatinine has increased from 1.4 to 1.6 09/06: Went into [facility] overnight. Now on high dose Precedex and Ativan PRN. Sedated heavily but wakes up to stimulation, moves extremities. Creat has normalized. EGD showed esophagitis. 2 D Echo EF 25-30. Diffuse hypokinesis, mod aortic root dilation. ? Alcohol induced CM 09/07: Improving DTs. Still drowsy, on Precedex 1.9 g per KG per hour. Chest x- ray from yesterday showing right lower lobe infiltrate improved today. CT angiogram shows mild aneurysmal dilatation of descending aorta. 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 Fever 102 overnight Objective Vital Signs Date Time Temp Pulse Resp B/P Pulse Ox O2 Delivery O2 Flow Rate FiO2 09/07/16 03:00 9 09/07/16 03:00 100.8 16 106/83 99 09/06/16 20:37 Nasal Cannula 4.00 09/05/16 20:37 21 Intake and Output 09/06/16 09/06/16 09/07/16 08:00 16:00 00:00 Intake Total 1760 ml 1492 ml Output Total 4500 ml 2500 ml Balance -2740 ml -1008 ml Result Diagram: 09/06/16 2342 09/06/16 2342 Objective Remarks Gen: Ill-appearing, heavily sedated on Precedex and PRN Ativan, but improving alcohol withdrawal Heent: No Oozing from right tongue laceration, 3 cm. Neck: Supple Lungs: Few rhonchi, good air movement on vent. Hear: NSR, no murmurs No JVD. Abdomen: Moderately distended.No guarding. Extremities: Tepid, adequately perfused. Neuro: Heavily sedated with Precedex. Opens eyes to command able disease name. Follows commands by squeezing with hands A/P Problem List: (1) Respiratory failure ICD Code: J96.90 Status: Acute (2) Status epilepticus ICD Code: G40.901 Status: Acute (3) Hepatic failure due to alcoholism ICD Code: K70.40 Status: Acute (4) Tongue laceration ICD Code: S01.512A Status: Acute (5) Upper GI hemorrhage ICD Code: K92.2 Status: Acute (6) EtOH dependence ICD Code: F10.20 Status: Acute (7) Hypomagnesemia ICD Code: E83.42 Status: Acute (8) Hypophosphatemia ICD Code: E83.39 Status: Acute Assessment and Plan Assessment: Acute respiratory failure-resolved Fever, RLL pneumonia, sepsis Severe alcohol withdrawal/DTs Status epilepticus-resolved UGI bleed/Esophagitis Paroxysmal a-fib with RVR, now NSR Electrolyte imbalance. Hepatic failure Hyperammonemia 170s-resolved Acute kidney failure, improving Alcohol dependence Tongue laceration GPC in 1/4 bottles probably contamination Plan by system: RESP: DuoNeb every 6 hours and when necessary. IS as tolerated. EzPAP q6 CV: Lopressor PO. Lisinopril 2.5 qd. No anticoagulation due to GI bleed and thrombocytopenia. Echo EF 25-30, mod aortic root dilation. Probable alc induced CM. CTA mild aneurysmal dilatation of descending aorta NEURO: Precedex at 1.9 mcg/kg/hour-wean to discontinue. Ativan for breakthrough seizures, withdrawal. Seizures most likely from alcohol withdrawal , EEG did not show any active seizures. Schduled Librium. Continue lactulose and rifaximin. Rpt ammonia level normal. Supplement thiamine GI: Protonix 40 IV q12. Lactulose qid, rifaximin. EGD 09/05 No varices, esophagitis per prelim report. Ceftriaxone for SBP prophylaxis-changed to Zosyn today 09/07 /Renal: Montano to CBD. Hourly output. AKF has resolved ENDO: Serial glucose with liver failure. HEME: Serial Hgb. Coags, including fibrinogen. Type and screen. s/p 1 unit of platelets. Thrombocytopenia secondary to liver disease and alcohol dependence ID: Chest x-ray shows right lower lobe infiltrate, discontinue Rocephin and start Zosyn and single dose of vancomycin 09/07/16. Follow-up on cultures Nutrition: Swallow eval and PO diet when more awake PX: Protonix IV, no chemical DVT prophylaxis, continue SCDS. Overall impression: Critically ill alcoholic with status withdrawal seizures, atrial fibrillation with RVR, and respiratory failure. Now with profound alcohol withdrawal Critical Care 32 mins aside from procedures. Problem Qualifiers (1) Respiratory failure: Qualified Code: J96.01 - Acute respiratory failure with hypoxia (2) Tongue laceration: Qualified Code: S01.512A - Tongue laceration, initial encounter Ovi Metzger MD Sep 07, 2016 06:53
[2016-09-07] MEDS ORDERED: VANCOMYCIN INJ 1,200 MG in SODIUM CHLOR 0.9% 250 ML INJ 250 ML IV ONE (08:00)
[2016-09-07] MEDS: CHLORHEXIDINE 0.12% (ORAL KIT) 15 ML CUP MT SCH ×2 (08:00→20:00)
[2016-09-07] MEDS: PIPERACIL-TAZO 4.5 GM PREMIX 100 ML IV SCH ×3 (08:25→20:42)
[2016-09-07 08:44] LABS: BICARBONATE 27.5 MEQ/L (21.0-32.0); CALCIUM-PROTEIN CORRECTED 7.6 MG/DL (8.5-10.1); MAGNESIUM 1.7 MG/DL (1.5-2.5); POTASSIUM 3.8 MEQ/L (3.5-5.1); TOTAL BILIRUBIN ADULT 2.2 MG/DL (0.2-1.0)
[2016-09-07] MEDS: PANTOPRAZOLE SODIUM 40 MG VIAL IV PUSH SCH ×2 (08:58→20:42)
[2016-09-07] MEDS: METOPROLOL TARTRATE 25 MG TAB PO SCH ×2 (09:00→20:43)
[2016-09-07] MEDS: RIFAXIMIN 550 MG TAB PO SCH ×2 (11:44→20:44)
[2016-09-07] MEDS: LISINOPRIL 5 MG TAB PO SCH (11:45)
[2016-09-07] MEDS: SODIUM CHLORIDE 0.9% FLUSH 5 ML FLUSH IV FLUSH SCH ×2 (11:45→20:43)
[2016-09-07] MEDS ORDERED: LACT10SO PO (12:41)
[2016-09-07] MEDS: MORPHINE SULFATE 4 MG/ML INJ IV PRN (14:38)
[2016-09-07] MEDS: SODIUM CHLOR 0.9% 1000 ML INJ 1,000 ML IV SCH (20:43)
[2016-09-08] VITALS (8 sets, daily range): BP systolic 100–129; BP diastolic 74–94; PULSE 62–108; RESP 15–20; TEMP 97.8–100.6; O2SAT 95–99
[2016-09-08] MEDS: chlordiazePOXIDE 25 MG CAP PO SCH ×3 (00:22→17:11)
[2016-09-08] MEDS: PIPERACIL-TAZO 4.5 GM PREMIX 100 ML IV SCH ×4 (01:22→21:29)
[2016-09-08] MEDS: LACTULOSE SYRUP 20 GM/30 ML CUP PO SCH ×4 (03:00→21:30)
[2016-09-08] MEDS: LORazepam 2 MG/ML VIAL IV PRN ×5 (03:09→23:37)
[2016-09-08] MEDS: CHLORHEXIDINE GLUCONATE 2 % 1 PACK (2 CLOTHS) TOP SCH (04:00)
[2016-09-08] MEDS: MORPHINE SULFATE 4 MG/ML INJ IV PRN ×3 (04:22→18:10)
[2016-09-08] MEDS: PANTOPRAZOLE SODIUM 40 MG VIAL IV PUSH SCH ×2 (06:04→21:29)
[2016-09-08] MEDS: CHLORHEXIDINE 0.12% (ORAL KIT) 15 ML CUP MT SCH ×2 (08:00→20:00)
[2016-09-08] MEDS: METOPROLOL TARTRATE 25 MG TAB PO SCH ×2 (09:00→21:30)
[2016-09-08] MEDS: SODIUM CHLORIDE 0.9% FLUSH 5 ML FLUSH IV FLUSH SCH ×2 (09:00→21:30)
[2016-09-08] MEDS: LISINOPRIL 5 MG TAB PO SCH (10:24)
[2016-09-08] MEDS: RIFAXIMIN 550 MG TAB PO SCH ×2 (10:24→21:30)
--- NOTE | 2016-09-08 12:03 | HHI.CCPN ---
Subjective Remarks/Hospital Course 46 y/o man presented to ED after seizure X 2. Heavy ETOH and liver disease history, still drinking. Subsequently developed status seizures requiring intubation and mechanical ventilation. Bite to tongue caused 3 cm laceration requiring suture repair due to bleeding. NG with > 300 MLs old blood. 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 Developed a-fib with RVR (arrived in sinus) . Low Mag, low phos. SUBJECTIVE 09/04/16: Remains intubated sedated. On 7.5 mics per minute of Levophed. Old blood from NG tube. GI consulted. Continuing IV Protonix and octreotide. Transfuse 1 unit of platelets 09/05/16: Remains intubated and heavily sedated with propofol and Versed. No seizures reported. Remains on Levophed at 2 mcg/m. EGD planned for today, possible weaning trials after EGD. Urine output excellent creatinine has increased from 1.4 to 1.6 09/06: Went into [facility] overnight. Now on high dose Precedex and Ativan PRN. Sedated heavily but wakes up to stimulation, moves extremities. Creat has normalized. EGD showed esophagitis. 2 D Echo EF 25-30. Diffuse hypokinesis, mod aortic root dilation. ? Alcohol induced CM 09/07: Improving DTs. Still drowsy, on Precedex 1.9 g per KG per hour. Chest x- ray from yesterday showing right lower lobe infiltrate improved today. CT angiogram shows mild aneurysmal dilatation of descending aorta. 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 Fever 102 overnight 09/08: Sitting up in chair, On Precedex 0.6 mcg/kg/hr. sputum culture growing gram-negative rods. Blood culture from admission strep viridans in 1 out of 4 bottles. 2 D Echo ordered Objective Vital Signs Date Time Temp Pulse Resp B/P Pulse Ox O2 Delivery O2 Flow Rate FiO2 09/08/16 07:19 97 21 09/08/16 07:00 76 09/08/16 07:00 16 129/94 09/08/16 07:00 Room Air 09/08/16 03:25 98.4 09/07/16 19:47 2.00 Intake and Output 09/07/16 09/07/16 09/08/16 08:00 16:00 00:00 Intake Total 1180 ml 2143 ml Output Total 2050 ml 840 ml Balance -870 ml 1303 ml Result Diagram: 09/06/16 2342 09/07/16 0655 Objective Remarks Gen: Sitting up in chair. Doses of Precedex Heent: No Oozing from right tongue laceration, 3 cm. Neck: Supple Lungs: Few rhonchi, good air movement on vent. Hear: NSR, no murmurs No JVD. Abdomen: No guarding. Extremities: Tepid, adequately perfused. Neuro: Alert oriented to person follows commands no focal deficits A/P Problem List: (1) Respiratory failure ICD Code: J96.90 Status: Acute (2) Status epilepticus ICD Code: G40.901 Status: Acute (3) Hepatic failure due to alcoholism ICD Code: K70.40 Status: Acute (4) Tongue laceration ICD Code: S01.512A Status: Acute (5) Upper GI hemorrhage ICD Code: K92.2 Status: Acute (6) EtOH dependence ICD Code: F10.20 Status: Acute (7) Hypomagnesemia ICD Code: E83.42 Status: Acute (8) Hypophosphatemia ICD Code: E83.39 Status: Acute Assessment and Plan Assessment: Acute respiratory failure-resolved Fever, RLL pneumonia, sepsis Severe alcohol withdrawal/DTs Status epilepticus-resolved UGI bleed/Esophagitis Paroxysmal a-fib with RVR, now NSR Electrolyte imbalance. Hepatic failure Hyperammonemia 170s-resolved Acute kidney failure, improving Alcohol dependence Tongue laceration Strep viridans in 1/4 bottles Plan by system: RESP: DuoNeb every 6 hours and when necessary. IS as tolerated. EzPAP q6. GNR in sputum CV: Lopressor PO. Lisinopril 2.5 qd. No anticoagulation due to GI bleed and thrombocytopenia. Echo EF 25-30, mod aortic root dilation. Probable alc induced CM. CTA mild aneurysmal dilatation of descending aorta NEURO: Precedex on weaning dose, DC today. Ativan for breakthrough seizures, withdrawal. Seizures most likely from alcohol withdrawal, EEG -no active seizures. Scheduled Librium. Continue lactulose and rifaximin. Rpt ammonia level normal. Supplement thiamine GI: Protonix 40 IV q12. Lactulose qid, rifaximin. EGD 09/05 No varices, esophagitis per prelim report. Zosyn for SBP prophylaxis, GNR sputum /Renal: Montano to CBD. Hourly output. AKF has resolved ENDO: Serial glucose with liver failure. HEME: Serial Hgb. Coags, including fibrinogen. Type and screen. s/p 1 unit of platelets. Thrombocytopenia secondary to liver disease and alcohol dependence ID: Chest x-ray shows right lower lobe infiltrate, GNR in sputum, 1/4 bottle strep viridans bacteremia Continue Zosyn. ID consulted Nutrition: Regular diet PX: Protonix IV, no chemical DVT prophylaxis, continue SCDs. Overall impression: Level3 Alcohol withdrawal improving. DC Precedex. Consult hospitalist to assume care in a.m. 09/09/16 (Dr. Barros) Problem Qualifiers (1) Respiratory failure: Qualified Code: J96.01 - Acute respiratory failure with hypoxia (2) Tongue laceration: Qualified Code: S01.512A - Tongue laceration, initial encounter Ovi Metzger MD Sep 08, 2016 12:03
[2016-09-08] MEDS: SODIUM CHLOR 0.9% 1000 ML INJ 1,000 ML IV SCH ×2 (13:30→23:57)
--- NOTE | 2016-09-08 14:16 | PD.CONS ---
History of Present Illness Service Infectious disease Consult Requested By Dr Juan R Metzger Reason for Consult Evaluate patient with strep viridans bacteremia Primary Care Physician No Primary Care Physician Diagnoses: History of Present Illness Patient seen and examined. Records reviewed. Patient is a 46-year-old male brought into the hospital for evaluation of weakness generalized tonic-clonic seizure. He had 2 episodes of the seizure. Patient ended up getting intubated. He was initially on pressors. There is history of daily use of alcohol and according to the he usually drinks mixed drinks with vodka, and occasionally beer. Patient and his family moved to [place] from [place] about 7 months ago. He was initially working, but he was laid off in June, and since then has had what the describes as episodes of depression. He has been drinking more, and the could not really tell how much, since she goes to work during the day. At least he would have 2 mixed drinks per day but most likely more than that. Patient was successfully extubated on September 05 and has remained stable from the pulmonary standpoint. He is currently not on any supplemental oxygen. One out of 2 blood cultures on admission had strep viridans. Repeat 2 blood cultures are negative so far. Patient is not febrile. He denies any significant cough or shortness of breath. Been having diarrhea, and attributes it to the lactulose. No abdominal pain, nausea or vomiting. Patient's hemodynamics are stable and he is not on pressors. He had an episode of atrial fibrillation, and he is currently in normal sinus rhythm. Infectious disease consultation is requested to evaluate the patient with strep viridans bacteremia. Review of Systems Constitutional: DENIES: Fever, Chills Eyes: DENIES: Eye pain Ears, nose, mouth, throat: DENIES: Nasal discharge, Oral lesions, Throat pain, Ear Pain, Running Nose, Sinus Pain Respiratory: DENIES: Cough, Shortness of breath Cardiovascular: DENIES: Chest pain, Palpitations Gastrointestinal: COMPLAINS OF: Diarrhea, DENIES: Abdominal pain, Nausea, Vomiting, Difficulty Swallowing Musculoskeletal: DENIES: Joint pain, Joint Swelling, Back pain Integumentary: DENIES: Pruritus, Rash Neurologic: COMPLAINS OF: Seizures, DENIES: Headache Psychiatric: COMPLAINS OF: Confusion, Depression Past Family Social History Allergies: Coded Allergies: No Known Allergies (Unverified , 09/03/16) Past Medical History Alcohol abuse Seizures Possible depression Past Surgical History No surgery Active Ordered Medications Acetaminophen Albuterol Librium Heparin Lactulose Prinivil Ativan Magnesium Lopressor Morphine Zofran Protonix Zosyn Potassium Rifaximin Social History , this is his second Currently unemployed No smoking Has significant alcohol use No illicit drug use Physical Exam Vital Signs Vital Signs Date Time Temp Pulse Resp B/P Pulse Ox O2 Delivery O2 Flow Rate FiO2 09/08/16 11:00 98.0 85 16 100/74 95 09/08/16 11:00 85 09/08/16 07:19 97 21 09/08/16 07:00 76 09/08/16 07:00 76 16 129/94 95 09/08/16 07:00 95 Room Air 09/08/16 03:25 98.4 62 15 123/88 97 09/08/16 03:25 62 09/08/16 00:09 98.9 63 18 115/80 96 09/08/16 00:09 63 09/07/16 19:47 Nasal Cannula 2.00 09/07/16 19:35 96 Nasal Cannula 2.00 09/07/16 19:35 99.0 69 18 92/66 96 09/07/16 19:00 67 09/07/16 15:26 74 09/07/16 15:24 99.4 74 16 88/59 99 Physical Exam GENERAL: This is a well-nourished, well-developed male, awake and alert, knows that he is at [employer], but told me the wrong year. He looks comfortable and not in any respiratory distress. SKIN: Cool and dry. No generalized rash or ecchymosis. No embolic lesions noted. HEAD: Atraumatic. Normocephalic head. No temporal or scalp tenderness. EYES: [place] with anti-V, no petechia or hemorrhage. Pupils equal round and reactive. Extraocular motions intact. No scleral icterus. No injection or drainage. ENT: Nose without bleeding, or purulent drainage. Moist oral mucosa. His tongue has significant ecchymosis, with some swelling. Throat without erythema , or exudate. Uvula midline. Airway patent. NECK: Trachea midline. No JVD or lymphadenopathy. Supple, nontender, no meningeal signs. CARDIOVASCULAR: Regular rate and rhythm without murmurs, gallops, or rubs. RESPIRATORY: Clear to auscultation. Breath sounds equal bilaterally. Some occasional wheezing on the left base. GASTROINTESTINAL: Abdomen soft, non-tender, nondistended. Bowel sounds are present and normoactive. No hepato-splenomegaly, or palpable masses. No guarding. MUSCULOSKELETAL: Extremities without clubbing, cyanosis, or edema. No joint tenderness, effusion, or edema noted. No calf tenderness. Negative Homans sign bilaterally. NEUROLOGICAL: Awake and alert. Cranial nerves II through XII intact. Motor and sensory grossly within normal limits. Five out of 5 muscle strength in all muscle groups. Normal speech. PSYCH: Normal affect, calm and cooperative. LINE: PICC with no evidence of infection : Montano catheter in place, urine looks clear Laboratory Date/Time Procedure Status Source Growth 09/07/16 00:05 Gram Stain - Final Resulted Sputum Endotracheal 09/07/16 00:05 Sputum Culture - Preliminary Resulted Gram Negative Josué 09/06/16 09:27 Aerobic Blood Culture - Preliminary Resulted Blood Peripheral NO GROWTH IN 2 DAYS 09/06/16 09:27 Anaerobic Blood Culture - Preliminary Resulted Blood Peripheral NO GROWTH IN 2 DAYS Result Diagram: 09/06/16 2342 09/07/16 0655 Imaging RADIOLOGY STUDIES/FILMS REVIEWED Chest X-Ray 09/06/16 0600 Signed Impressions: Service Date/Time: Tuesday, September 06, 2016 04:53 - CONCLUSION: Developing right base parenchymal opacity. Yassine Souza MD Aorta CTA 09/06/16 0000 Signed Impressions: Service Date/Time: Wednesday, September 07, 2016 02:00 - CONCLUSION: Mild aneurysmal dilatation of the ascending thoracic aorta. Yassine Souza MD Head CT 09/03/16 1855 Signed Impressions: Service Date/Time: Saturday, September 03, 2016 23:35 - CONCLUSION: Atrophy. No evidence of acute intracranial pathology. Warren Amos MD Assessment and Plan Assessment and Plan IMPRESSION Strep viridans bacteremia, one out of 2, fup BC negative, unclear significance GNR pneumonia - possibly aspiration during his seizure Respiratory failure, tolerating extubation ETOH abuse, possibly with cirrhosis RECOMMENDATION Continue Zosyn Follow C/S and adjust Abx Follow C/S Monitor progress I will determine course and choice of Abx once workup and C/S finalized I will follow along with you Thank you for this consultation Discussed Condition With D/W RN Spoke with Steffi Saab MD Sep 08, 2016 14:16
[2016-09-09] VITALS (7 sets, daily range): BP systolic 88–137; BP diastolic 64–95; PULSE 71–110; RESP 16–24; TEMP 99–100.4; O2SAT 97–99
[2016-09-09] MEDS: chlordiazePOXIDE 25 MG CAP PO SCH ×3 (01:00→17:15)
[2016-09-09] MEDS: LORazepam 2 MG/ML VIAL IV PRN ×2 (01:39→08:58)
[2016-09-09] MEDS: PIPERACIL-TAZO 4.5 GM PREMIX 100 ML IV SCH ×3 (02:45→14:02)
[2016-09-09] MEDS: LACTULOSE SYRUP 20 GM/30 ML CUP PO SCH ×4 (02:45→20:00)
[2016-09-09] MEDS: CHLORHEXIDINE GLUCONATE 2 % 1 PACK (2 CLOTHS) TOP SCH (04:00)
[2016-09-09] MEDS ORDERED: HALOPERIDOL LACTATE 5 MG/ML AMP ONE (07:37)
[2016-09-09] MEDS: CHLORHEXIDINE 0.12% (ORAL KIT) 15 ML CUP MT SCH ×2 (08:00→20:00)
[2016-09-09] MEDS: PANTOPRAZOLE SODIUM 40 MG VIAL IV PUSH SCH ×2 (08:07→19:58)
[2016-09-09] MEDS: METOPROLOL TARTRATE 25 MG TAB PO SCH ×2 (09:00→20:00)
[2016-09-09] MEDS: SODIUM CHLORIDE 0.9% FLUSH 5 ML FLUSH IV FLUSH SCH ×2 (09:00→20:04)
[2016-09-09] MEDS: LISINOPRIL 5 MG TAB PO SCH (09:00)
[2016-09-09] MEDS: RIFAXIMIN 550 MG TAB PO SCH ×2 (09:00→20:00)
[2016-09-09] MEDS ORDERED: HALOPERIDOL LACTATE 5 MG/ML AMP IV PRN (09:45)
--- NOTE | 2016-09-09 10:43 | HHI.CCPN ---
Subjective Remarks/Hospital Course 46 y/o man presented to ED after seizure X 2. Heavy ETOH and liver disease history, still drinking. Subsequently developed status seizures requiring intubation and mechanical ventilation. Bite to tongue caused 3 cm laceration requiring suture repair due to bleeding. NG with > 300 MLs old blood. 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 Developed a-fib with RVR (arrived in sinus) . Low Mag, low phos. SUBJECTIVE 09/04/16: Remains intubated sedated. On 7.5 mics per minute of Levophed. Old blood from NG tube. GI consulted. Continuing IV Protonix and octreotide. Transfuse 1 unit of platelets 09/05/16: Remains intubated and heavily sedated with propofol and Versed. No seizures reported. Remains on Levophed at 2 mcg/m. EGD planned for today, possible weaning trials after EGD. Urine output excellent creatinine has increased from 1.4 to 1.6 09/06: Went into [facility] overnight. Now on high dose Precedex and Ativan PRN. Sedated heavily but wakes up to stimulation, moves extremities. Creat has normalized. EGD showed esophagitis. 2 D Echo EF 25-30. Diffuse hypokinesis, mod aortic root dilation. ? Alcohol induced CM 09/07: Improving DTs. Still drowsy, on Precedex 1.9 g per KG per hour. Chest x- ray from yesterday showing right lower lobe infiltrate improved today. CT angiogram shows mild aneurysmal dilatation of descending aorta. 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 Fever 102 overnight 09/08: Sitting up in chair, On Precedex 0.6 mcg/kg/hr. sputum culture growing gram-negative rods. Blood culture from admission strep viridans in 1 out of 4 bottles. 2 D Echo ordered 09/09: Severely agitated overnight. On 4 point restraints now. IV Ativan and Librium not helping enough. Sputum culture growing Klebsiella and Serratia pansensitive. I will place him on IV Haldol when necessary and scheduled Seroquel Objective Vital Signs Date Time Temp Pulse Resp B/P Pulse Ox O2 Delivery O2 Flow Rate FiO2 09/09/16 07:00 99.8 110 16 137/95 98 09/09/16 07:00 Room Air 09/08/16 07:19 21 09/07/16 19:47 2.00 Intake and Output 09/08/16 09/08/16 09/09/16 08:00 16:00 00:00 Intake Total 1284 ml 1590 ml Output Total 1000 ml 1300 ml Balance 284 ml 290 ml Result Diagram: 09/06/16 2342 09/07/16 0655 Other Results Microbiology Date/Time Procedure Status Source Growth 09/07/16 00:05 Gram Stain - Final Complete Sputum Endotracheal 09/07/16 00:05 Sputum Culture - Final Complete Serratia Marcescens Klebsiella Oxytoca Objective Remarks Gen: Lying in bed on 4 point restraints. HEENT: No Oozing from right tongue laceration, 3 cm. Neck: Supple Lungs: Few rhonchi, good air movement on vent. Hear: NSR, no murmurs No JVD. Abdomen: No guarding. Extremities: Tepid, adequately perfused. Neuro: Patient on 4 point restraints. Oriented to person and place. Tremulous. Intermittently hallucinating Urinary Catheter: Yes Assessment to: Continue A/P Problem List: (1) Respiratory failure ICD Code: J96.90 Status: Acute (2) Status epilepticus ICD Code: G40.901 Status: Acute (3) Hepatic failure due to alcoholism ICD Code: K70.40 Status: Acute (4) Tongue laceration ICD Code: S01.512A Status: Acute (5) Upper GI hemorrhage ICD Code: K92.2 Status: Acute (6) EtOH dependence ICD Code: F10.20 Status: Acute (7) Hypomagnesemia ICD Code: E83.42 Status: Acute (8) Hypophosphatemia ICD Code: E83.39 Status: Acute Assessment and Plan Assessment: Acute respiratory failure-resolved Severe alcohol withdrawal/DTs Fever, RLL pneumonia, sepsis Status epilepticus-resolved UGI bleed/Esophagitis Paroxysmal a-fib with RVR, now NSR Electrolyte imbalance. Hepatic failure Hyperammonemia 170s-resolved Acute kidney failure, improving Alcohol dependence Tongue laceration Strep viridans in 1/4 bottles Plan by system: RESP: DuoNeb every 6 hours and when necessary. IS as tolerated. EzPAP q6. Zosyn for aspiration pneumonia CV: Lopressor PO. Lisinopril 2.5 qd. No anticoagulation due to GI bleed and thrombocytopenia. Echo EF 25-30, mod aortic root dilation. Probable alc induced CM. CTA mild aneurysmal dilatation of descending aorta NEURO: Off Precedex. Start Haldol 5 mg IV every 6 hours when necessary. Start Seroquel 50 mg by mouth every 12 Ativan for breakthrough seizures, withdrawal. Seizures most likely from alcohol withdrawal, EEG -no active seizures. Scheduled Librium. Continue lactulose and rifaximin. Rpt ammonia level normal. Supplement thiamine GI: Protonix 40 IV q12. Lactulose qid, rifaximin. EGD 09/05 No varices, esophagitis per prelim report. Zosyn for SBP prophylaxis /Renal: Montano to CBD. Hourly output. AKF has resolved ENDO: Serial glucose with liver failure. HEME: Serial Hgb. Coags, including fibrinogen. Type and screen. s/p 1 unit of platelets. Thrombocytopenia secondary to liver disease and alcohol dependence ID: Chest x-ray shows right lower lobe infiltrate, Klebsiella and Serratia in sputum in sputum, 1/4 bottle strep viridans bacteremia-significance unknown Continue Zosyn. ID consulted Dr. Saab Nutrition: Regular diet PX: Protonix IV, no chemical DVT prophylaxis, continue SCDs. Overall impression: CCT 30 Critically ill due to severe life-threatening alcohol withdrawal and delirium tremens. Continue ICU care Problem Qualifiers (1) Respiratory failure: Qualified Code: J96.01 - Acute respiratory failure with hypoxia (2) Tongue laceration: Qualified Code: S01.512A - Tongue laceration, initial encounter Ovi Metzger MD Sep 09, 2016 10:42
[2016-09-09] MEDS: QUEtiapine FUMARATE 25 MG TAB PO SCH ×2 (11:00→21:00)
[2016-09-09 11:26] LABS: AUTOMATED NEUTROPHIL # 1.4 TH/MM3 (1.8-7.7); BASOPHIL % 0.6 % (0.0-2.0); EOSINOPHIL % 0.8 % (0.0-4.0); HEMATOCRIT 27.4 % (39.0-51.0); LYMPH % 23.7 % (9.0-44.0); LYMPHOCYTE # 0.7 TH/MM3 (1.0-4.8); MEAN CORPUSCULAR HGB CONC 34.2 % (32.0-36.0); MONO % 28.4 % (0.0-8.0); NEUT % 46.5 % (16.0-70.0); PLATELET COUNT 52 TH/MM3 (150-450); RED BLOOD COUNT 2.47 MIL/MM3 (4.50-5.90); RED CELL DISTRIBUTION WIDTH 14.3 % (11.6-17.2); WHITE BLOOD COUNT 3.1 TH/MM3 (4.0-11.0)
[2016-09-09 11:29] LABS: HEMO FLAGS AUTO DIFF
[2016-09-09 11:33] LABS: INTERNATIONAL NORMALIZED RATIO 1.2 RATIO; PROTHROMBIN TIME - PATIENT 13.8 SEC (9.8-11.6)
[2016-09-09 11:46] LABS: BICARBONATE 24.7 MEQ/L (21.0-32.0); TOTAL BILIRUBIN ADULT 2.1 MG/DL (0.2-1.0)
[2016-09-09 11:48] LABS: POTASSIUM 2.8 MEQ/L (3.5-5.1)
[2016-09-09 11:58] LABS: PLATELET ESTIMATE SMEAR LOW (NORMAL); PLATELET MORPHOLOGY NORMAL (NORMAL); SCAN/DIFF AUTO DIFF CONFIRMED
[2016-09-09] MEDS: POTASSIUM CHLOR 20 MEQ PREMIX 100 ML IV PRN ×4 (12:01→18:29)
--- NOTE | 2016-09-09 14:28 | HHI.IDPN ---
Subjective Subjective Remarks Notes reviewed Febrile overnight D/W RN Severely agitated overnight - got ativan and librium Required 4 point restraints Has received haldol today and more calm currently Temps better Not SOB, on RA Has shankar Has PICC No abdominal pain No N/V Antibiotics Zosyn Lines PICC Past Medical History Alcohol abuse Seizures Possible depression Allergies: Coded Allergies: No Known Allergies (Unverified , 09/03/16) Objective . Vital Signs Date Time Temp Pulse Resp B/P Pulse Ox O2 Delivery O2 Flow Rate FiO2 09/09/16 11:00 75 09/09/16 11:00 99.4 75 16 111/80 97 09/09/16 07:00 99.8 110 16 137/95 98 09/09/16 07:00 Room Air 09/09/16 07:00 110 09/09/16 04:00 102 09/09/16 04:00 99 24 131/94 98 09/09/16 00:00 102 09/09/16 00:00 100.4 102 24 119/94 97 09/08/16 21:00 103 20 125/88 98 09/08/16 20:00 100.6 108 18 118/87 99 09/08/16 20:00 106 09/08/16 20:00 99 Room Air 09/08/16 18:15 16 09/08/16 15:00 81 09/08/16 15:00 97.8 81 16 117/86 96 09/08/16 09/08/16 09/09/16 15:00 23:00 07:00 Intake Total 1590 ml 1190 ml Output Total 1300 ml 1500 ml Balance 290 ml -310 ml Intake Oral 720 ml 240 ml IV Total 870 ml 950 ml Output Urine Total 700 ml 900 ml Stool Total 600 ml 600 ml # Bowel Movements 3 3 . Laboratory Tests Test 09/09/16 11:11 White Blood Count 3.1 TH/MM3 Red Blood Count 2.47 MIL/MM3 Hemoglobin 9.4 GM/DL Hematocrit 27.4 % Mean Corpuscular Volume 111.0 FL Mean Corpuscular Hemoglobin 38.0 PG Mean Corpuscular Hemoglobin 34.2 % Concent Red Cell Distribution Width 14.3 % Platelet Count 52 TH/MM3 Mean Platelet Volume 9.7 FL Neutrophils (%) (Auto) 46.5 % Lymphocytes (%) (Auto) 23.7 % Monocytes (%) (Auto) 28.4 % Eosinophils (%) (Auto) 0.8 % Basophils (%) (Auto) 0.6 % Neutrophils # (Auto) 1.4 TH/MM3 Lymphocytes # (Auto) 0.7 TH/MM3 Monocytes # (Auto) 0.9 TH/MM3 Eosinophils # (Auto) 0.0 TH/MM3 Basophils # (Auto) 0.0 TH/MM3 CBC Comment AUTO DIFF Differential Comment AUTO DIFF CONFIRMED Platelet Estimate LOW Platelet Morphology Comment NORMAL Laboratory Tests Test 09/09/16 11:11 Sodium Level 144 MEQ/L Potassium Level 2.8 MEQ/L Chloride Level 109 MEQ/L Carbon Dioxide Level 24.7 MEQ/L Anion Gap 10 MEQ/L Blood Urea Nitrogen 6 MG/DL Creatinine 0.55 MG/DL Estimat Glomerular Filtration 161 ML/MIN Rate Random Glucose 101 MG/DL Calcium Level 7.3 MG/DL Protein Corrected Calcium 8.0 MG/DL Total Bilirubin 2.1 MG/DL Aspartate Amino Transf 206 U/L (AST/SGOT) Alanine Aminotransferase 79 U/L (ALT/SGPT) Alkaline Phosphatase 115 U/L Total Protein 5.8 GM/DL Albumin 2.7 GM/DL Microbiology Date/Time Procedure Status Source Growth 09/07/16 00:05 Gram Stain - Final Complete Sputum Endotracheal 09/07/16 00:05 Sputum Culture - Final Complete Serratia Marcescens Klebsiella Oxytoca Imaging Chest X-Ray 09/06/16 0600 Signed Impressions: Service Date/Time: Tuesday, September 06, 2016 04:53 - CONCLUSION: Developing right base parenchymal opacity. Yassine Souza MD Aorta CTA 09/06/16 0000 Signed Impressions: Service Date/Time: Wednesday, September 07, 2016 02:00 - CONCLUSION: Mild aneurysmal dilatation of the ascending thoracic aorta. Yassine Souza MD Head CT 09/03/16 1855 Signed Impressions: Service Date/Time: Saturday, September 03, 2016 23:35 - CONCLUSION: Atrophy. No evidence of acute intracranial pathology. Warren Amos MD Physical Exam GENERAL: Awakens easily, calm, and cooperative, NAD SKIN: Cool and dry. No generalized rash or ecchymosis. No embolic lesions noted. HEENT: [place] conjunctiva. No scleral icterus. No injection or drainage. Moist oral mucosa. His tongue has significant ecchymosis, with some swelling. NECK: Trachea midline. No JVD or lymphadenopathy. Supple, nontender, no meningeal signs. CARDIOVASCULAR: Regular rate and rhythm without murmurs, gallops, or rubs. RESPIRATORY: Clear to auscultation. Breath sounds equal bilaterally. Some occasional wheezing on the left base. GASTROINTESTINAL: Abdomen soft, non-tender, nondistended. Bowel sounds are present and normoactive. MUSCULOSKELETAL: Extremities without clubbing, cyanosis, or edema. No calf tenderness. NEUROLOGICAL: Non-focal. PSYCH: Normal affect, calm and cooperative. LINE: PICC with no evidence of infection : Shankar catheter in place, urine looks clear Assessment & Plan Remarks IMPRESSION Strep viridans bacteremia, one out of 2, fup BC negative, unclear significance Serratia/Klebsiella pneumonia - possibly aspiration during his seizure Respiratory failure, tolerating extubation ETOH abuse, possibly with cirrhosis Delirium, likely DT Fevers, possibly due to DT RECOMMENDATION Change to Cefepime Follow C/S Monitor progress Monitor temps If stable, will be able to change to po Levaquin this D/W RN Dr Lauren Hand available if needed this Steffi Saab MD Sep 09, 2016 14:28
[2016-09-09] MEDS: CEFEPIME INJ 2,000 MG in SODIUM CHLORIDE 0.9% INJ 100 ML IV SCH (16:03)
[2016-09-09] MEDS: SODIUM CHLOR 0.9% 1000 ML INJ 1,000 ML IV SCH (16:37)
[2016-09-09] MEDS: MORPHINE SULFATE 4 MG/ML INJ IV PRN ×2 (18:28→20:36)
[2016-09-10] VITALS (10 sets, daily range): BP systolic 95–116; BP diastolic 65–81; PULSE 68–94; RESP 15–18; TEMP 98.5–99.8; O2SAT 94–99
[2016-09-10] MEDS: chlordiazePOXIDE 25 MG CAP PO SCH ×3 (00:37→16:20)
[2016-09-10] MEDS: CHLORHEXIDINE GLUCONATE 2 % 1 PACK (2 CLOTHS) TOP SCH (04:00)
[2016-09-10] MEDS: LACTULOSE SYRUP 20 GM/30 ML CUP PO SCH ×5 (04:25→21:00)
[2016-09-10] MEDS: CEFEPIME INJ 2,000 MG in SODIUM CHLORIDE 0.9% INJ 100 ML IV SCH ×2 (04:26→16:20)
[2016-09-10] MEDS: MORPHINE SULFATE 4 MG/ML INJ IV PRN ×3 (04:27→21:18)
[2016-09-10] MEDS: PANTOPRAZOLE SODIUM 40 MG VIAL IV PUSH SCH ×2 (06:28→17:59)
[2016-09-10 06:31] LABS: BICARBONATE 23.7 MEQ/L (21.0-32.0); CALCIUM-PROTEIN CORRECTED 7.8 MG/DL (8.5-10.1); MAGNESIUM 0.9 MG/DL (1.5-2.5); POTASSIUM 3.3 MEQ/L (3.5-5.1); TOTAL BILIRUBIN ADULT 1.5 MG/DL (0.2-1.0)
[2016-09-10 07:11] LABS: AUTOMATED NEUTROPHIL # 1.1 TH/MM3 (1.8-7.7); BASOPHIL % 0.9 % (0.0-2.0); EOSINOPHIL # 0.1 TH/MM3 (0-0.4); EOSINOPHIL % 1.7 % (0.0-4.0); HEMATOCRIT 27.8 % (39.0-51.0); LYMPH % 31.2 % (9.0-44.0); LYMPHOCYTE # 0.9 TH/MM3 (1.0-4.8); MEAN CELL VOLUME 111.9 FL (80.0-100.0); MEAN CORPUSCULAR HEMOGLOBIN 37.8 PG (27.0-34.0); MEAN CORPUSCULAR HGB CONC 33.8 % (32.0-36.0); MONO % 27.2 % (0.0-8.0); PLATELET COUNT 77 TH/MM3 (150-450); RED BLOOD COUNT 2.48 MIL/MM3 (4.50-5.90); RED CELL DISTRIBUTION WIDTH 14.5 % (11.6-17.2); WHITE BLOOD COUNT 2.9 TH/MM3 (4.0-11.0)
[2016-09-10 07:37] LABS: HEMO FLAGS AUTO DIFF
[2016-09-10] MEDS: CHLORHEXIDINE 0.12% (ORAL KIT) 15 ML CUP MT SCH ×2 (08:00→20:00)
--- NOTE | 2016-09-10 08:23 | HHI.CCPN ---
Subjective Remarks/Hospital Course 46 y/o man presented to ED after seizure X 2. Heavy ETOH and liver disease history, still drinking. Subsequently developed status seizures requiring intubation and mechanical ventilation. Bite to tongue caused 3 cm laceration requiring suture repair due to bleeding. NG with > 300 MLs old blood. 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 Developed a-fib with RVR (arrived in sinus) . Low Mag, low phos. SUBJECTIVE 09/04/16: Remains intubated sedated. On 7.5 mics per minute of Levophed. Old blood from NG tube. GI consulted. Continuing IV Protonix and octreotide. Transfuse 1 unit of platelets 09/05/16: Remains intubated and heavily sedated with propofol and Versed. No seizures reported. Remains on Levophed at 2 mcg/m. EGD planned for today, possible weaning trials after EGD. Urine output excellent creatinine has increased from 1.4 to 1.6 09/06: Went into [place] DTs overnight. Now on high dose Precedex and Ativan PRN. Sedated heavily but wakes up to stimulation, moves extremities. Creat has normalized. EGD showed esophagitis. 2 D Echo EF 25-30. Diffuse hypokinesis, mod aortic root dilation. ? Alcohol induced CM 09/07: Improving DTs. Still drowsy, on Precedex 1.9 g per KG per hour. Chest x- ray from yesterday showing right lower lobe infiltrate improved today. CT angiogram shows mild aneurysmal dilatation of descending aorta. 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 Fever 102 overnight 09/08: Sitting up in chair, On Precedex 0.6 mcg/kg/hr. sputum culture growing gram-negative rods. Blood culture from admission strep viridans in 1 out of 4 bottles. 2 D Echo ordered 09/09: Severely agitated overnight. On 4 point restraints now. IV Ativan and Librium not helping enough. Sputum culture growing Klebsiella and Serratia pansensitive. I will place him on IV Haldol when necessary and scheduled Seroquel 09/10 No events overnight. Patient is on room air oxygen when seen. Afebrile. Objective Vital Signs Date Time Temp Pulse Resp B/P Pulse Ox O2 Delivery O2 Flow Rate FiO2 09/10/16 07:55 98.7 85 18 97/81 96 09/10/16 07:53 Room Air 09/08/16 07:19 21 09/07/16 19:47 2.00 Intake and Output 09/09/16 09/09/16 09/10/16 08:00 16:00 00:00 Intake Total 1190 ml 1296 ml Output Total 1500 ml 1500 ml Balance -310 ml -204 ml Result Diagram: 09/10/16 0452 09/10/16 0452 Other Results Laboratory Tests Test 09/09/16 09/10/16 11:11 04:52 White Blood Count 3.1 TH/MM3 2.9 TH/MM3 Red Blood Count 2.47 MIL/MM3 2.48 MIL/MM3 Hemoglobin 9.4 GM/DL 9.4 GM/DL Hematocrit 27.4 % 27.8 % Mean Corpuscular Volume 111.0 FL 111.9 FL Mean Corpuscular Hemoglobin 38.0 PG 37.8 PG Mean Corpuscular Hemoglobin 34.2 % 33.8 % Concent Red Cell Distribution Width 14.3 % 14.5 % Platelet Count 52 TH/MM3 77 TH/MM3 Mean Platelet Volume 9.7 FL 9.7 FL Neutrophils (%) (Auto) 46.5 % 39.0 % Lymphocytes (%) (Auto) 23.7 % 31.2 % Monocytes (%) (Auto) 28.4 % 27.2 % Eosinophils (%) (Auto) 0.8 % 1.7 % Basophils (%) (Auto) 0.6 % 0.9 % Neutrophils # (Auto) 1.4 TH/MM3 1.1 TH/MM3 Lymphocytes # (Auto) 0.7 TH/MM3 0.9 TH/MM3 Monocytes # (Auto) 0.9 TH/MM3 0.8 TH/MM3 Eosinophils # (Auto) 0.0 TH/MM3 0.1 TH/MM3 Basophils # (Auto) 0.0 TH/MM3 0.0 TH/MM3 CBC Comment AUTO DIFF AUTO DIFF Differential Comment AUTO DIFF CONFIRMED Platelet Estimate LOW Platelet Morphology Comment NORMAL Prothrombin Time 13.8 SEC Prothromb Time International 1.2 RATIO Ratio Sodium Level 144 MEQ/L 143 MEQ/L Potassium Level 2.8 MEQ/L 3.3 MEQ/L Chloride Level 109 MEQ/L 110 MEQ/L Carbon Dioxide Level 24.7 MEQ/L 23.7 MEQ/L Anion Gap 10 MEQ/L 9 MEQ/L Blood Urea Nitrogen 6 MG/DL 6 MG/DL Creatinine 0.55 MG/DL 0.51 MG/DL Estimat Glomerular Filtration 161 ML/MIN 176 ML/MIN Rate Random Glucose 101 MG/DL 86 MG/DL Calcium Level 7.3 MG/DL 7.1 MG/DL Protein Corrected Calcium 8.0 MG/DL 7.8 MG/DL Total Bilirubin 2.1 MG/DL 1.5 MG/DL Aspartate Amino Transf 206 U/L 148 U/L (AST/SGOT) Alanine Aminotransferase 79 U/L 73 U/L (ALT/SGPT) Alkaline Phosphatase 115 U/L 115 U/L Total Protein 5.8 GM/DL 5.7 GM/DL Albumin 2.7 GM/DL 2.6 GM/DL Magnesium Level 0.9 MG/DL Imaging Last Impressions Chest X-Ray 09/06/16 0600 Signed Impressions: Service Date/Time: Tuesday, September 06, 2016 04:53 - CONCLUSION: Developing right base parenchymal opacity. Yassine Souza MD Aorta CTA 09/06/16 0000 Signed Impressions: Service Date/Time: Wednesday, September 07, 2016 02:00 - CONCLUSION: Mild aneurysmal dilatation of the ascending thoracic aorta. Yassine Souza MD Head CT 09/03/16 1855 Signed Impressions: Service Date/Time: Saturday, September 03, 2016 23:35 - CONCLUSION: Atrophy. No evidence of acute intracranial pathology. Warren Amos MD Objective Remarks GENERAL: Patient is lying in bed in NAD. SKIN: Warm and dry. HEAD: Normocephalic. EYES: No scleral icterus. No injection or drainage. NECK: Supple, trachea midline. No JVD or lymphadenopathy. CARDIOVASCULAR: Regular rate and rhythm without murmurs, gallops, or rubs. RESPIRATORY: Breath sounds equal bilaterally. No accessory muscle use. GASTROINTESTINAL: Abdomen soft, non-tender, nondistended. MUSCULOSKELETAL: No cyanosis, or edema. BACK: Nontender without obvious deformity. No CVA tenderness. Neuro: Awake and alert A/P Problem List: (1) Respiratory failure ICD Code: J96.90 Status: Acute (2) Status epilepticus ICD Code: G40.901 Status: Acute (3) Hepatic failure due to alcoholism ICD Code: K70.40 Status: Acute (4) Tongue laceration ICD Code: S01.512A Status: Acute (5) Upper GI hemorrhage ICD Code: K92.2 Status: Acute (6) EtOH dependence ICD Code: F10.20 Status: Acute (7) Hypomagnesemia ICD Code: E83.42 Status: Acute (8) Hypophosphatemia ICD Code: E83.39 Status: Acute Assessment and Plan Assessment: Acute respiratory failure-resolved Severe alcohol withdrawal/DTs Fever, RLL pneumonia, Status epilepticus-resolved UGI bleed/Esophagitis Paroxysmal a-fib with RVR, now NSR Electrolyte imbalance. Hepatic failure Hyperammonemia 170s-resolved Acute kidney failure, resolved Alcohol dependence Tongue laceration Strep viridans in 08/24 bottles Plan by system: RESP: Oxygen PRN keep sat >92% Bronchodilators, IS as tolerated. EzPAP q6. CV:On Lopressor 25mg Q12, Lisinopril 2.5 qd. Monitor HR and BP keep MAP>65mmHg No anticoagulation due to GI bleed and thrombocytopenia. Echo EF 25-30, mod aortic root dilation. CTA mild aneurysmal dilatation of descending aorta NEURO: Awake and alert, on Haldol 5 mg IV every 6 hours when necessary. Seroquel 50 mg Q12 Ativan for breakthrough seizures, withdrawal. s/p Seizures most likely from alcohol withdrawal, EEG -no active seizures. Scheduled Librium. Continue lactulose and rifaximin. On Supplement thiamine GI: Protonix 40 IV q12. Lactulose qid, rifaximin. EGD 09/05 No varices, esophagitis per prelim report. Monitor LFT's. /Renal:Monitor renal function, electrolytes replacement per protocol. Will need K replacement today On NS@60ml/hr ENDO: SSI if needed for glycemic control HEME: Monitor CBC, coags s/p 1 unit of platelets. Thrombocytopenia secondary to liver disease and alcohol dependence ID: 09/07 Sputum : Klebsiella and Serratia 09/04 08/24 bottle strep viridans bacteremia 09/06 BC: No growth Continue abx per ID ( Cefepime)monitor for signs of infections ( Fever, WBC) PX: Protonix IV, no chemical DVT prophylaxis, continue SCDs. Will sign off and transfer [facility] to [facility] Level 3 Problem Qualifiers (1) Respiratory failure: Qualified Code: J96.01 - Acute respiratory failure with hypoxia (2) Tongue laceration: Qualified Code: S01.512A - Tongue laceration, initial encounter Eleanor Gallego MD Sep 10, 2016 08:23
[2016-09-10] MEDS: RIFAXIMIN 550 MG TAB PO SCH ×2 (08:31→21:00)
[2016-09-10] MEDS: QUEtiapine FUMARATE 25 MG TAB PO SCH ×2 (08:32→21:00)
[2016-09-10] MEDS: SODIUM CHLORIDE 0.9% FLUSH 5 ML FLUSH IV FLUSH SCH ×2 (08:33→21:03)
[2016-09-10] MEDS: LISINOPRIL 5 MG TAB PO SCH (08:33)
[2016-09-10] MEDS: METOPROLOL TARTRATE 25 MG TAB PO SCH ×2 (08:33→21:00)
[2016-09-10] MEDS: POTASSIUM CHLOR 40 MEQ PREMIX 100 ML IV PRN (09:00)
[2016-09-10] MEDS: SODIUM CHLOR 0.9% 1000 ML INJ 1,000 ML IV SCH (09:17)
[2016-09-10 09:25] LABS: BANDS 6 % (0-6); BASOPHILS 1 % (0-2); EOSINOPHILS 2 % (0-4); METAMYELOCYTES 1 % (0-1); MYELOCYTES 1 % (0-0); NEUTROPHIL # MANUAL DIFF 1.2 TH/MM3 (1.8-7.7); PLATELET ESTIMATE SMEAR LOW (NORMAL); PLATELET MORPHOLOGY NORMAL (NORMAL); POLYS (SEG NEUTROPHILS) 33 % (16-70); SCAN/DIFF FINAL DIFF MANUAL; WBC DIFF SAMPLE 100
[2016-09-11] VITALS (11 sets, daily range): BP systolic 93–114; BP diastolic 65–86; PULSE 69–107; RESP 15–20; TEMP 98–98.9; O2SAT 94–99
[2016-09-11] MEDS: chlordiazePOXIDE 25 MG CAP PO SCH ×3 (00:55→16:22)
[2016-09-11] MEDS: LACTULOSE SYRUP 20 GM/30 ML CUP PO SCH ×4 (03:00→21:00)
[2016-09-11] MEDS: CHLORHEXIDINE GLUCONATE 2 % 1 PACK (2 CLOTHS) TOP SCH (04:00)
[2016-09-11 04:58] LABS: AUTOMATED NEUTROPHIL # 1.2 TH/MM3 (1.8-7.7); BASOPHIL % 1.4 % (0.0-2.0); EOSINOPHIL % 1.3 % (0.0-4.0); HEMATOCRIT 25.4 % (39.0-51.0); LYMPH % 31.2 % (9.0-44.0); LYMPHOCYTE # 0.8 TH/MM3 (1.0-4.8); MEAN CORPUSCULAR HEMOGLOBIN 37.7 PG (27.0-34.0); MEAN CORPUSCULAR HGB CONC 33.4 % (32.0-36.0); MONO % 23.7 % (0.0-8.0); NEUT % 42.4 % (16.0-70.0); PLATELET COUNT 84 TH/MM3 (150-450); RED BLOOD COUNT 2.25 MIL/MM3 (4.50-5.90); RED CELL DISTRIBUTION WIDTH 14.6 % (11.6-17.2); WHITE BLOOD COUNT 2.7 TH/MM3 (4.0-11.0)
[2016-09-11 05:03] LABS: HEMO FLAGS AUTO DIFF
[2016-09-11 05:04] LABS: INTERNATIONAL NORMALIZED RATIO 1.4 RATIO; PROTHROMBIN TIME - PATIENT 15.2 SEC (9.8-11.6)
[2016-09-11 05:37] LABS: BICARBONATE 22.5 MEQ/L (21.0-32.0); CALCIUM-PROTEIN CORRECTED 7.6 MG/DL (8.5-10.1); MAGNESIUM 0.9 MG/DL (1.5-2.5); POTASSIUM 3.1 MEQ/L (3.5-5.1); TOTAL BILIRUBIN ADULT 1.2 MG/DL (0.2-1.0)
[2016-09-11] MEDS: PANTOPRAZOLE SODIUM 40 MG VIAL IV PUSH SCH (05:44)
[2016-09-11] MEDS: CEFEPIME INJ 2,000 MG in SODIUM CHLORIDE 0.9% INJ 100 ML IV SCH (05:44)
[2016-09-11] MEDS: POTASSIUM CHLOR 40 MEQ PREMIX 100 ML IV PRN (06:05)
[2016-09-11] MEDS: MAGNESIUM SULFATE INJ 4 GM in SODIUM CHLORIDE 0.9% INJ 92 ML IV PRN (06:17)
[2016-09-11] MEDS: MORPHINE SULFATE 4 MG/ML INJ IV PRN ×2 (06:25→10:09)
[2016-09-11 06:45] LABS: BANDS 2 % (0-6); EOSINOPHILS 1 % (0-4); MYELOCYTES 1 % (0-0); NEUTROPHIL # MANUAL DIFF 1.2 TH/MM3 (1.8-7.7); POLYS (SEG NEUTROPHILS) 43 % (16-70); WBC DIFF SAMPLE 100
[2016-09-11 06:47] LABS: PLATELET ESTIMATE SMEAR LOW (NORMAL); PLATELET MORPHOLOGY ENLARGED (NORMAL); SCAN/DIFF FINAL DIFF MANUAL
[2016-09-11] MEDS: CHLORHEXIDINE 0.12% (ORAL KIT) 15 ML CUP MT SCH ×2 (08:00→20:00)
[2016-09-11] MEDS: METOPROLOL TARTRATE 25 MG TAB PO SCH ×2 (08:40→21:00)
[2016-09-11] MEDS: RIFAXIMIN 550 MG TAB PO SCH ×2 (08:40→20:05)
[2016-09-11] MEDS: LISINOPRIL 5 MG TAB PO SCH (08:41)
[2016-09-11] MEDS: QUEtiapine FUMARATE 25 MG TAB PO SCH ×2 (08:41→20:05)
[2016-09-11] MEDS: SODIUM CHLORIDE 0.9% FLUSH 5 ML FLUSH IV FLUSH SCH ×2 (08:42→21:15)
[2016-09-11] MEDS ORDERED: CALCIUM GLUCONATE INJ 1 GM in SODIUM CHLORIDE 0.9% INJ 100 ML IV ONE (12:00)
--- NOTE | 2016-09-11 13:09 | HHI.PR ---
Subjective Remarks Follow-up for pneumonia, seizures No further seizures, denies any cough or shortness of breath. No fever. Patient has generalized weakness, shaky on his feet. Soft stools but on lactulose. Objective Vitals Vital Signs Date Time Temp Pulse Resp B/P Pulse Ox O2 Delivery O2 Flow Rate FiO2 09/11/16 11:09 98.6 72 15 107/76 94 09/11/16 11:00 107 09/11/16 10:14 20 09/11/16 07:11 98.4 72 15 108/81 94 09/11/16 07:09 96 Room Air 09/11/16 07:00 70 09/11/16 03:43 72 09/11/16 03:43 98.0 69 15 93/65 94 09/10/16 23:23 98.6 86 15 97/65 94 09/10/16 23:23 82 09/10/16 19:35 96 Room Air 09/10/16 19:35 98.7 89 18 116/68 96 09/10/16 19:00 86 09/10/16 15:25 99.8 80 18 100/75 96 09/10/16 15:00 78 I/O 09/10/16 09/10/16 09/10/16 09/11/16 09/11/16 09/11/16 07:00 15:00 23:00 07:00 15:00 23:00 Intake Total 1380 ml 2240 ml 1211 ml Output Total 950 ml 1275 ml 1250 ml Balance 430 ml 965 ml -39 ml Intake Oral 300 ml 1320 ml 240 ml IV Total 1080 ml 920 ml 971 ml Output Urine Total 950 ml 1275 ml 1250 ml # Bowel Movements 1 1 Result Diagram: 09/11/16 0441 09/11/16 0441 Objective Remarks GENERAL: Patient is lying in bed in NAD. SKIN: Warm and dry. HEAD: Normocephalic. EYES: Mildly icteric NECK: Supple, trachea midline. No JVD or lymphadenopathy. CARDIOVASCULAR: Regular rate and rhythm without murmurs, gallops, or rubs. RESPIRATORY: Decreased breath sounds on the right base, no wheezing or crackles. GASTROINTESTINAL: Abdomen soft, non-tender, nondistended. MUSCULOSKELETAL: No cyanosis, trace edema. BACK: Nontender without obvious deformity. No CVA tenderness. Mild jaundice and pallor Neuro: Awake and alert A/P Assessment and Plan This is a 46-year-old male with history of alcohol abuse and liver disease presenting with seizures. Seizures, thought to be alcohol withdrawal seizures-patient denies alcohol use, this is the patient's first time having seizures. Patient's partner/white agrees that patient has been sober. Continue Seroquel, taper. EEG negative. Ativan as needed. CT scan of the head unremarkable. Alcohol liver disease-continue lactulose and rifaximin, ammonia trending down. LFTs improving, monitor. Acute kidney failure-resolved Tongue laceration-status post closure by primary intention Acute respiratory failure-intubated for airway protection. Status post extubation, on room air, bronchodilators as needed. Pneumonia, likely aspiration pneumonia, bacteremia- chest x-ray shows right lower lobe consolidation, sputum culture grew Serratia and Klebsiella, infectious disease following, continue cefepime, stable, switch to Levaquin. Blood culture grew Streptococcus viridans, unclear significance. Hypertension-continue Lopressor, lisinopril, monitor, Echo EF 25-30, mod aortic root dilation. CTA mild aneurysmal dilatation of descending aorta seen by cardiology, presumptive alcoholic cardiomyopathy; pt not a candidate for invasive procedures at this time regardless; copy and print associate signed off. ? Atrial fibrillation, paroxysmal-seen on admission, continue metoprolol. Currently in sinus rhythm. Radiology has signed off. History of Ethanol abuse and dependence, delirium tremens -decrease Librium, still Librium as needed, continue thiamine, EGD 09/05 No varices, esophagitis per prelim report. Anemia-monitor, could be dilutional versus consumptive coagulopathy. EGD showed esophagitis but no varices, continue Protonix. Thrombocytopenia-likely secondary to consumptive coagulopathy from alcohol liver disease, monitor. Hypocalcemia-replace Transfer to [facility] [place], continue telemetry, continue physical therapy, regular diet , remove [place] catheter. SCDs for DVT prophylaxis. Discharge Planning Discharge in a few days once medically okay. Nikki Ngo MD Sep 11, 2016 13:09 PX: Protonix IV, no chemical DVT prophylaxis, continue SCDs. Will sign off and transfer care to [facility] Nikki Ngo MD Sep 11, 2016 13:09
[2016-09-11] MEDS: SODIUM CHLOR 0.45% 1000 ML INJ 1,000 ML IV SCH (13:28)
[2016-09-11] MEDS ORDERED: chlordiazePOXIDE 25 MG CAP PO PRN (13:30)
[2016-09-11] MEDS ORDERED: POTASSIUM CL 40 MEQ/30 ML LIQ UDC PO ONE (13:30)
[2016-09-11] MEDS: LEVOFLOXACIN 750 MG TAB PO SCH (13:49)
[2016-09-11] MEDS: PANTOPRAZOLE SOD 40 MG DELAYED RELEASE TAB PO SCH (20:05)
[2016-09-11] MEDS: MORPHINE SULFATE 4 MG/ML INJ IV PUSH PRN (20:06)
[2016-09-12] VITALS (8 sets, daily range): BP systolic 94–109; BP diastolic 71–88; PULSE 63–113; RESP 16–20; TEMP 96.4–98.8; O2SAT 92–100
[2016-09-12] MEDS: chlordiazePOXIDE 25 MG CAP PO SCH ×3 (00:27→17:28)
[2016-09-12] MEDS: LACTULOSE SYRUP 20 GM/30 ML CUP PO SCH ×4 (03:00→21:00)
[2016-09-12] MEDS: CHLORHEXIDINE GLUCONATE 2 % 1 PACK (2 CLOTHS) TOP SCH (04:00)
[2016-09-12] MEDS: SODIUM CHLOR 0.45% 1000 ML INJ 1,000 ML IV SCH ×2 (04:07→13:23)
[2016-09-12 05:24] LABS: AUTOMATED NEUTROPHIL # 1.6 TH/MM3 (1.8-7.7); BASOPHIL % 0.7 % (0.0-2.0); EOSINOPHIL % 0.7 % (0.0-4.0); HEMATOCRIT 25.2 % (39.0-51.0); LYMPH % 25.2 % (9.0-44.0); LYMPHOCYTE # 0.8 TH/MM3 (1.0-4.8); MEAN CELL VOLUME 112.2 FL (80.0-100.0); MEAN CORPUSCULAR HEMOGLOBIN 37.9 PG (27.0-34.0); MEAN CORPUSCULAR HGB CONC 33.8 % (32.0-36.0); MONO % 21.4 % (0.0-8.0); PLATELET COUNT 92 TH/MM3 (150-450); RED BLOOD COUNT 2.25 MIL/MM3 (4.50-5.90); RED CELL DISTRIBUTION WIDTH 14.5 % (11.6-17.2)
[2016-09-12 05:25] LABS: HEMO FLAGS AUTO DIFF
[2016-09-12 05:55] LABS: BICARBONATE 23.1 MEQ/L (21.0-32.0); POTASSIUM 3.8 MEQ/L (3.5-5.1)
[2016-09-12 07:55] LABS: PLATELET ESTIMATE SMEAR LOW (NORMAL); PLATELET MORPHOLOGY NORMAL (NORMAL); SCAN/DIFF AUTO DIFF CONFIRMED
[2016-09-12] MEDS: CHLORHEXIDINE 0.12% (ORAL KIT) 15 ML CUP MT SCH ×2 (08:00→20:00)
[2016-09-12] MEDS: LISINOPRIL 5 MG TAB PO SCH ×2 (09:00→09:23)
[2016-09-12] MEDS: PANTOPRAZOLE SOD 40 MG DELAYED RELEASE TAB PO SCH ×2 (09:23→21:49)
[2016-09-12] MEDS: RIFAXIMIN 550 MG TAB PO SCH ×2 (09:24→21:49)
[2016-09-12] MEDS: METOPROLOL TARTRATE 25 MG TAB PO SCH ×3 (09:25→21:49)
[2016-09-12] MEDS: QUEtiapine FUMARATE 25 MG TAB PO SCH ×2 (09:25→21:49)
[2016-09-12] MEDS: LEVOFLOXACIN 750 MG TAB PO SCH (09:25)
[2016-09-12] MEDS: SODIUM CHLORIDE 0.9% FLUSH 5 ML FLUSH IV FLUSH SCH ×2 (10:17→21:50)
[2016-09-12] MEDS: MORPHINE SULFATE 4 MG/ML INJ IV PUSH PRN (11:08)
--- NOTE | 2016-09-12 12:15 | HHI.IDPN ---
Subjective Subjective Remarks Notes reviewed D/W RN Temps better Out of DTs Has order to transfer out of ICU Not SOB, on RA Has PICC No abdominal pain No N/V Antibiotics Levaquin Lines PICC Past Medical History Alcohol abuse Seizures Possible depression Allergies: Coded Allergies: No Known Allergies (Unverified , 09/03/16) Objective . Vital Signs Date Time Temp Pulse Resp B/P Pulse Ox O2 Delivery O2 Flow Rate FiO2 09/12/16 11:00 96.4 110 20 104/77 99 09/12/16 11:00 71 09/12/16 09:28 97 09/12/16 07:00 97.0 63 16 101/76 92 09/12/16 07:00 99 Room Air 09/12/16 07:00 71 09/12/16 03:22 98.6 82 16 109/88 99 09/12/16 03:22 87 09/11/16 23:07 88 09/11/16 23:07 98.6 88 16 114/86 99 09/11/16 19:31 98 21 09/11/16 19:17 99 Room Air 09/11/16 19:17 98.6 91 18 108/85 99 09/11/16 19:00 91 09/11/16 15:11 98.9 93 20 110/72 94 09/11/16 15:00 93 09/11/16 09/11/16 09/12/16 15:00 23:00 07:00 Intake Total 2116 ml 2130 ml Output Total 950 ml 2000 ml Balance 1166 ml 130 ml Intake Oral 960 ml 480 ml IV Total 1156 ml 1650 ml Output Urine Total 950 ml 2000 ml # Bowel Movements 1 2 . Laboratory Tests Test 09/11/16 09/12/16 04:41 05:10 White Blood Count 2.7 TH/MM3 3.0 TH/MM3 Red Blood Count 2.25 MIL/MM3 2.25 MIL/MM3 Hemoglobin 8.5 GM/DL 8.5 GM/DL Hematocrit 25.4 % 25.2 % Mean Corpuscular Volume 113.0 FL 112.2 FL Mean Corpuscular Hemoglobin 37.7 PG 37.9 PG Mean Corpuscular Hemoglobin 33.4 % 33.8 % Concent Red Cell Distribution Width 14.6 % 14.5 % Platelet Count 84 TH/MM3 92 TH/MM3 Mean Platelet Volume 9.4 FL 10.3 FL Neutrophils (%) (Auto) 42.4 % 52.0 % Lymphocytes (%) (Auto) 31.2 % 25.2 % Monocytes (%) (Auto) 23.7 % 21.4 % Eosinophils (%) (Auto) 1.3 % 0.7 % Basophils (%) (Auto) 1.4 % 0.7 % Neutrophils # (Auto) 1.2 TH/MM3 1.6 TH/MM3 Lymphocytes # (Auto) 0.8 TH/MM3 0.8 TH/MM3 Monocytes # (Auto) 0.6 TH/MM3 0.6 TH/MM3 Eosinophils # (Auto) 0.0 TH/MM3 0.0 TH/MM3 Basophils # (Auto) 0.0 TH/MM3 0.0 TH/MM3 CBC Comment AUTO DIFF AUTO DIFF Differential Total Cells 100 Counted Neutrophils % (Manual) 43 % Band Neutrophils % 2 % Lymphocytes % 33 % Monocytes % 20 % Eosinophils % 1 % Neutrophils # (Manual) 1.2 TH/MM3 Myelocytes 1 % Differential Comment FINAL DIFF AUTO DIFF MANUAL CONFIRMED Platelet Estimate LOW LOW Platelet Morphology Comment ENLARGED NORMAL Laboratory Tests Test 09/11/16 09/12/16 04:41 05:10 Sodium Level 146 MEQ/L 138 MEQ/L Potassium Level 3.1 MEQ/L 3.8 MEQ/L Chloride Level 114 MEQ/L 107 MEQ/L Carbon Dioxide Level 22.5 MEQ/L 23.1 MEQ/L Anion Gap 10 MEQ/L 8 MEQ/L Blood Urea Nitrogen 4 MG/DL 3 MG/DL Creatinine 0.43 MG/DL 0.49 MG/DL Estimat Glomerular Filtration 214 ML/MIN 184 ML/MIN Rate Random Glucose 87 MG/DL 98 MG/DL Calcium Level 6.6 MG/DL 7.5 MG/DL Protein Corrected Calcium 7.6 MG/DL Phosphorus Level 3.0 MG/DL Magnesium Level 0.9 MG/DL Total Bilirubin 1.2 MG/DL Aspartate Amino Transf 105 U/L (AST/SGOT) Alanine Aminotransferase 67 U/L (ALT/SGPT) Alkaline Phosphatase 99 U/L Total Protein 5.1 GM/DL Albumin 2.3 GM/DL Imaging Chest X-Ray 09/06/16 0600 Signed Impressions: Service Date/Time: Tuesday, September 06, 2016 04:53 - CONCLUSION: Developing right base parenchymal opacity. Yassine Souza MD Aorta CTA 09/06/16 0000 Signed Impressions: Service Date/Time: Wednesday, September 07, 2016 02:00 - CONCLUSION: Mild aneurysmal dilatation of the ascending thoracic aorta. Yassine Souza MD Head CT 09/03/16 1855 Signed Impressions: Service Date/Time: Saturday, September 03, 2016 23:35 - CONCLUSION: Atrophy. No evidence of acute intracranial pathology. Warren Amos MD Physical Exam GENERAL: Awake and alert, up in chair, NAD SKIN: Cool and dry. No generalized rash HEENT: [place] conjunctiva. No scleral icterus. No injection or drainage. Moist oral mucosa. NECK: Supple, nontender, no meningeal signs. CARDIOVASCULAR: Regular rate and rhythm without murmurs, gallops, or rubs. RESPIRATORY: Clear to auscultation. Breath sounds equal bilaterally. Some occasional wheezing on the left base. GASTROINTESTINAL: Abdomen soft, non-tender, nondistended. Bowel sounds are present and normoactive. MUSCULOSKELETAL: Extremities without clubbing, cyanosis, or edema. No calf tenderness. NEUROLOGICAL: Non-focal. PSYCH: Normal affect, calm and cooperative. LINE: PICC with no evidence of infection Assessment & Plan Remarks IMPRESSION Strep viridans bacteremia, one out of 2, fup BC negative, unclear significance Serratia/Klebsiella pneumonia - possibly aspiration during his seizure Respiratory failure, tolerating extubation ETOH abuse, possibly with cirrhosis Delirium, likely DT Fevers, possibly due to DT RECOMMENDATION Continue Levaquin - give until Sep 19 Clinically doing well from ID standpoint I will see prn Please reconsult if with any new ID issue or question D/W Steffi Farooq MD Sep 12, 2016 12:15
[2016-09-13] VITALS: BP 119/81; PULSE 82; RESP 18; TEMP 98.8; O2SAT 100
[2016-09-13] MEDS: chlordiazePOXIDE 25 MG CAP PO SCH ×2 (00:37→08:24)
[2016-09-13] MEDS: SODIUM CHLOR 0.45% 1000 ML INJ 1,000 ML IV SCH ×2 (01:15→13:10)
[2016-09-13] MEDS: LACTULOSE SYRUP 20 GM/30 ML CUP PO SCH ×3 (01:49→15:00)
[2016-09-13] MEDS: CHLORHEXIDINE GLUCONATE 2 % 1 PACK (2 CLOTHS) TOP SCH (03:40)
[2016-09-13 04:00] VITALS: BP 109/61; PULSE 74; RESP 18; TEMP 98.6; O2SAT 100
[2016-09-13 07:52] VITALS: PULSE 81
[2016-09-13 08:00] VITALS: BP 112/75; PULSE 95; RESP 20; TEMP 99.7; O2SAT 100
[2016-09-13] MEDS: CHLORHEXIDINE 0.12% (ORAL KIT) 15 ML CUP MT SCH (08:00)
[2016-09-13] MEDS: QUEtiapine FUMARATE 25 MG TAB PO SCH (08:23)
[2016-09-13] MEDS: LEVOFLOXACIN 750 MG TAB PO SCH (08:24)
[2016-09-13] MEDS: LISINOPRIL 5 MG TAB PO SCH (08:24)
[2016-09-13] MEDS: PANTOPRAZOLE SOD 40 MG DELAYED RELEASE TAB PO SCH (08:24)
[2016-09-13] MEDS: METOPROLOL TARTRATE 25 MG TAB PO SCH (08:24)
[2016-09-13] MEDS: RIFAXIMIN 550 MG TAB PO SCH (08:24)
[2016-09-13] MEDS: SODIUM CHLORIDE 0.9% FLUSH 5 ML FLUSH IV FLUSH SCH (09:00)
[2016-09-13 12:00] VITALS: BP 103/74; PULSE 85; RESP 20; TEMP 97.8; O2SAT 100
--- NOTE | 2016-09-13 13:17 | HHI.PR ---
Subjective Remarks Follow-up pneumonia, seizure. The patient has no complaints at this time. He wants to go home. Family at bedside states that he has been ambulating in the room and doing well. She is confident that he could do well at home as well. She will be at home to help him. He denies headache, blurred vision, cough, dyspnea, chest pain. Objective Vitals Vital Signs Date Time Temp Pulse Resp B/P Pulse Ox O2 Delivery O2 Flow Rate FiO2 09/13/16 12:00 97.8 85 20 103/74 100 09/13/16 08:00 99.7 95 20 112/75 100 09/13/16 07:52 81 09/13/16 07:52 Room Air 09/13/16 04:00 98.6 74 18 109/61 100 09/13/16 00:00 98.8 82 18 119/81 100 09/13/16 00:00 Room Air 09/12/16 22:02 98 09/12/16 20:00 Room Air 09/12/16 20:00 98.8 90 18 107/74 100 09/12/16 16:00 98.1 91 20 94/71 100 I/O 09/12/16 09/12/16 09/12/16 09/13/16 09/13/16 09/13/16 07:00 15:00 23:00 07:00 15:00 23:00 Intake Total 2130 ml 1237 ml 1121 ml Output Total 2000 ml 650 ml Balance 130 ml 1237 ml 471 ml Intake Oral 480 ml 360 ml 360 ml IV Total 1650 ml 877 ml 761 ml Output Urine Total 2000 ml 650 ml # Voids 8 2 # Bowel Movements 2 8 1 Result Diagram: 09/12/16 0510 09/12/16 0510 Imaging Last Impressions Chest X-Ray 09/06/16 0600 Signed Impressions: Service Date/Time: Tuesday, September 06, 2016 04:53 - CONCLUSION: Developing right base parenchymal opacity. Yassine Souza MD Aorta CTA 09/06/16 0000 Signed Impressions: Service Date/Time: Wednesday, September 07, 2016 02:00 - CONCLUSION: Mild aneurysmal dilatation of the ascending thoracic aorta. Yassine Souza MD Head CT 09/03/16 1855 Signed Impressions: Service Date/Time: Saturday, September 03, 2016 23:35 - CONCLUSION: Atrophy. No evidence of acute intracranial pathology. Warren Amos MD Objective Remarks General: No acute distress. Heart: Regular rate and rhythm. No murmur. Lungs: Clear to auscultation bilaterally. No wheezes, rales, or rhonchi. Breathing is nonlabored. Abdomen: Soft, nontender, nondistended. Extremities: No lower extremity edema. Psych: Alert and oriented. 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 Seizures: Probably secondary to alcohol withdrawal. No prior history of seizures. Continue Seroquel. EEG was negative. Ativan available as needed. Head CT negative. Continue seizure precautions. 2. Alcoholic liver disease: Continue lactulose, rifaximin. Ammonia trending down. LFTs improving. 3. Acute kidney failure: Resolved. 4. Tongue laceration: Status post closure by primary intention. 5. Acute respiratory failure: Patient was intubated for airway protection. He has been extubated and is now tolerating room air. Bronchodilators as needed. 6. Pneumonia: Likely aspiration pneumonia. Sputum culture grew Serratia and Klebsiella. Appreciate infectious disease recommendations. Continue Levaquin. 7. Bacteremia: Blood culture grew strep viridans. Uncertain significance. 8. Hypertension: Continue Lopressor, lisinopril. 9. Paroxysmal atrial fibrillation: Continue metoprolol. Currently in sinus rhythm. Cardiology has signed off. 10. Alcohol abuse/dependence, withdrawal: Taper Librium. Continue thiamine. 11. Anemia, thrombocytopenia: Probably secondary to alcoholic liver disease. EGD showed esophagitis but no varices. Continue PPI. 12. Hypocalcemia: Improving. 13. DVT prophylaxis: SCDs. Discharge Planning Discharge home today. Problem Qualifiers (1) Tongue laceration: Qualified Code: S01.512A - Tongue laceration, initial encounter (2) Respiratory failure: Qualified Code: J96.01 - Acute respiratory failure with hypoxia (3) Atrial fibrillation: Qualified Code: I48.0 - Paroxysmal atrial fibrillation Mark Phelps MD Sep 13, 2016 13:17
[2016-09-13] MEDS ORDERED: XIFA550T4 PO (13:47)
[2016-09-13] MEDS ORDERED: QUET1TAB7 PO (13:47)
[2016-09-13] MEDS ORDERED: PANT40TA3 PO (13:47)
[2016-09-13] MEDS ORDERED: LISI-519 PO (13:47)
[2016-09-13] MEDS ORDERED: LEVA750T PO (13:47)
[2016-09-13] MEDS ORDERED: METO25TA3 PO (13:47)
[2016-09-13] MEDS ORDERED: CHLO10CA2 PO (13:47)
[2016-09-13] MEDS ORDERED: LACT10SO PO (13:47)
--- NOTE | 2016-09-13 13:48 | HHI.DCPOC ---
Discharge Care Plan Diagnosis: (1) Atrial fibrillation (2) Hypocalcemia (3) Acute renal failure (4) Anemia (5) Seizures (6) Thrombocytopenia (7) Alcohol withdrawal (8) Hypertension (9) Status epilepticus (10) Hepatic failure due to alcoholism (11) EtOH dependence (12) Respiratory failure (13) Tongue laceration Goals to Promote Your Health * To prevent worsening of your condition and complications * To maintain your health at the optimal level Directions to Meet Your Goals Take your medications as prescribed Follow your dietary instruction Follow activity as directed Keep your appointments as scheduled Take your immunizations and boosters as scheduled If your symptoms worsen call your PCP, if no PCP go to Urgent Care Center or Emergency Room Smoking is Dangerous to Your Health. Avoid second hand smoke Call the 24-hour hour crisis hotline for domestic abuse at Mark Phelps MD Sep 13, 2016 13:47
--- NOTE | 2016-09-13 13:52 | HHI.DS ---
Discharge Summary Admission Date Sep 03, 2016 at 19:40 Discharge Date: Sep 13, 2016 Admitting Diagnosis seizure. A. fib with RVR. Electrolyte abnormality. (1) Status epilepticus ICD Code: G40.901 (2) EtOH dependence ICD Code: F10.20 (3) Hepatic failure due to alcoholism ICD Code: K70.40 (4) Acute renal failure ICD Code: N17.9 (5) Tongue laceration ICD Code: S01.512A (6) Respiratory failure ICD Code: J96.90 (7) Alcohol withdrawal ICD Code: F10.239 (8) Thrombocytopenia ICD Code: D69.6 (9) Seizures ICD Code: R56.9 (10) Anemia ICD Code: D64.9 (11) Hypertension ICD Code: I10 (12) Atrial fibrillation ICD Code: I48.91 (13) Hypocalcemia ICD Code: E83.51 Procedures 09/04/16 PICC line placement Brief History - From Admission 46 y/o man presented to ED after seizure X 2. Heavy ETOH and liver disease history, still drinking. Subsequently developed status seizures requiring intubation and mechanical ventilation. Bite to tongue caused 3 cm laceration requiring suture repair due to bleeding. NG with > 300 MLs old blood. 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 Developed a-fib with RVR (arrived in sinus) . Low Mag, low phos. CBC/BMP: 09/12/16 0510 09/12/16 0510 Significant Findings Laboratory Tests Test 09/11/16 09/12/16 04:41 05:10 White Blood Count 2.7 TH/MM3 3.0 TH/MM3 (4.0-11.0) (4.0-11.0) Red Blood Count 2.25 MIL/MM3 2.25 MIL/MM3 (4.50-5.90) (4.50-5.90) Hemoglobin 8.5 GM/DL 8.5 GM/DL (13.0-17.0) (13.0-17.0) Hematocrit 25.4 % 25.2 % (39.0-51.0) (39.0-51.0) Mean Corpuscular Volume 113.0 FL 112.2 FL (80.0-100.0) (80.0-100.0) Mean Corpuscular Hemoglobin 37.7 PG 37.9 PG (27.0-34.0) (27.0-34.0) Platelet Count 84 TH/MM3 92 TH/MM3 (150-450) (150-450) Monocytes (%) (Auto) 23.7 % 21.4 % (0.0-8.0) (0.0-8.0) Neutrophils # (Auto) 1.2 TH/MM3 1.6 TH/MM3 (1.8-7.7) (1.8-7.7) Lymphocytes # (Auto) 0.8 TH/MM3 0.8 TH/MM3 (1.0-4.8) (1.0-4.8) Monocytes % 20 % (0-8) Neutrophils # (Manual) 1.2 TH/MM3 (1.8-7.7) Myelocytes 1 % (0-0) Platelet Estimate LOW (NORMAL) LOW (NORMAL) Platelet Morphology Comment ENLARGED (NORMAL) Prothrombin Time 15.2 SEC (9.8-11.6) Sodium Level 146 MEQ/L (136-145) Potassium Level 3.1 MEQ/L (3.5-5.1) Chloride Level 114 MEQ/L (98-107) Blood Urea Nitrogen 4 MG/DL (7-18) 3 MG/DL (7-18) Creatinine 0.43 MG/DL 0.49 MG/DL (0.60-1.30) (0.60-1.30) Calcium Level 6.6 MG/DL 7.5 MG/DL (8.5-10.1) (8.5-10.1) Protein Corrected Calcium 7.6 MG/DL (8.5-10.1) Magnesium Level 0.9 MG/DL (1.5-2.5) Total Bilirubin 1.2 MG/DL (0.2-1.0) Aspartate Amino Transf 105 U/L (15-37) (AST/SGOT) Total Protein 5.1 GM/DL (6.4-8.2) Albumin 2.3 GM/DL (3.4-5.0) Imaging Last Impressions Chest X-Ray 09/06/16 0600 Signed Impressions: Service Date/Time: Tuesday, September 06, 2016 04:53 - CONCLUSION: Developing right base parenchymal opacity. Yassine Souza MD Aorta CTA 09/06/16 0000 Signed Impressions: Service Date/Time: Wednesday, September 07, 2016 02:00 - CONCLUSION: Mild aneurysmal dilatation of the ascending thoracic aorta. Yassine Souza MD Head CT 09/03/16 1855 Signed Impressions: Service Date/Time: Saturday, September 03, 2016 23:35 - CONCLUSION: Atrophy. No evidence of acute intracranial pathology. Warren Amos MD PE at Discharge General: No acute distress. Heart: Regular rate and rhythm. No murmur. Lungs: Clear to auscultation bilaterally. No wheezes, rales, or rhonchi. Breathing is nonlabored. Abdomen: Soft, nontender, nondistended. Extremities: No lower extremity edema. Psych: Alert and oriented. Hospital Course The patient was admitted for treatment of respiratory failure and seizures. He was intubated and maintained on mechanical ventilation. Gastroenterology was consulted for possible GI bleed as the patient was noted to have coffee-ground emesis through the NG tube. This was felt to be secondary to tongue laceration. EGD was done and showed esophagitis and portal hypertensive gastropathy. Cardiology was consulted for evaluation of new onset atrial fibrillation. This is felt to be secondary to alcohol abuse/withdrawal. EEG was done and showed mild encephalopathy, but no epileptiform features. The patient was placed on Precedex drip for agitation and withdrawal symptoms. His symptoms improved. He was weaned off the Precedex drip. His respiratory status improved. He was extubated. He was weaned off oxygen and was stable on room air. He was transferred out of the intensive care unit. He continued to improve clinically and on the day of discharge had no complaints. He wanted to go home and arrangements were made for discharge home. Pt Condition on Discharge: Stable Discharge Disposition: Discharge Home Discharge Time: > 30 minutes Discharge Instructions DIET: Follow Instructions for: Heart Healthy Diet Activities you can perform: Regular-No Restrictions, Shower Only-No Bath Activities to Avoid: Bathing, Driving Follow up Referrals: Cardiology - 2 Weeks with Den Mchugh MD Drug/Alcohol Rehab PCP Follow-up - 1 Week New Medications: Chlordiazepoxide (Chlordiazepoxide) 10 Mg Cap 10 MG PO TID 10mg TID x 2 days, then 10mg BID x 3 days, then 10mg daily x 3 days , then stop. NO ALCOHOL WHILE TAKING THIS MEDICATION. Withdrawals #15 Ref 0 CAP Lactulose Liq (Lactulose Liq) 10 Gm/15 Ml Soln 30 ML PO BID liver disease Days 30 Ref 0 ML Levofloxacin (Levaquin) 750 Mg Tab 750 MG PO DAILY Infection #7 Ref 0 TAB Lisinopril (Lisinopril) 5 Mg Tab 2.5 MG PO DAILY Blood Pressure Management #30 Ref 0 TAB Metoprolol Tartrate (Metoprolol Tartrate) 25 Mg Tab 25 MG PO Q12HR Blood Pressure Management #60 Ref 0 TAB Pantoprazole (Pantoprazole) 40 Mg Tab 40 MG PO DAILY gerd #30 TAB Quetiapine (Quetiapine) 25 Mg Tab 50 MG PO BID Agitation #60 Ref 0 TAB Rifaximin (Xifaxan) 550 Mg Tab 550 MG PO BID liver disease #60 Ref 0 TAB Discontinued Medications: Lactulose Liq (Lactulose Liq) 10 Gm/15 Ml Soln 30 ML PO Q6H Ref 0 ML Mark Phelps MD Sep 13, 2016 13:52
[2016-09-13] MEDS ORDERED: MORPHINE SULFATE 4 MG/ML INJ IV PUSH PRN (14:00)
== END 2016-09-13 17:41 | disposition home or self-care (01) | DRG 981 ==
LOC: NEPA 17:55 → NEDA 19:40 → HCVR 23:55 → N04B 09-12 12:15
PROVIDERS: ADMIT Family Medicine; ATTEND Family Medicine
PROC: 0CQ7XZZ Repair Tongue, External Approach (ICD-10-PCS; principal; 2016-09-03)
PROC: 0BH17EZ Insertion of Endotracheal Airway into Trachea, Via Natural or Artificial Opening (ICD-10-PCS; 2016-09-03)
PROC: 5A1945Z Respiratory Ventilation, 24-96 Consecutive Hours (ICD-10-PCS; 2016-09-03)
PROC: 05H533Z Insertion of Infusion Device into Right Subclavian Vein, Percutaneous Approach (ICD-10-PCS; 2016-09-04)
PROC: 0DJ08ZZ Inspection of Upper Intestinal Tract, Via Natural or Artificial Opening Endoscopic (ICD-10-PCS; 2016-09-05)
DX: J96.01 Acute respiratory failure with hypoxia (principal); J69.0 Pneumonitis due to inhalation of food and vomit; D65 Disseminated intravascular coagulation [defibrination syndrome]; A41.9 Sepsis, unspecified organism; G93.40 Encephalopathy, unspecified; N17.9 Acute kidney failure, unspecified; F10.231 Alcohol dependence with withdrawal delirium; K76.6 Portal hypertension; I42.6 Alcoholic cardiomyopathy; E72.20 Disorder of urea cycle metabolism, unspecified; K92.2 Gastrointestinal hemorrhage, unspecified; G40.901 Epilepsy, unspecified, not intractable, with status epilepticus; I48.0 Paroxysmal atrial fibrillation; K70.30 Alcoholic cirrhosis of liver without ascites; E83.42 Hypomagnesemia; E83.39 Other disorders of phosphorus metabolism; S01.512A Laceration without foreign body of oral cavity, initial encounter; K72.90 Hepatic failure, unspecified without coma; Y90.0 Blood alcohol level of less than 20 mg/100 ml; K20.9 Esophagitis, unspecified; K31.89 Other diseases of stomach and duodenum; I10 Essential (primary) hypertension; D64.9 Anemia, unspecified; E83.51 Hypocalcemia; Z78.1 Physical restraint status
CPT/HCPCS: 31500; 36430; 36569; 36600; 41252; 70450; 71010; 71275; 74174; 76937; 80048; 80053; 80307; 80320; 81001; 82140; 82550; 82552; 82805; 82948; 83605; 83690; 83735; 83880; 84100; 84132; 84443; 84484; 85007; 85014; 85025; 85027; 85384; 85610; 85730; 86403; 86850; 86900; 86901; 87040; 87070; 87077; 87186; 87205; 87641; 93005; 93306; 94002; 94003; 95819; 96365; 96368; 96375; 96376; 99292; C9113; C9399; J0131; J0461; J0610; J0692; J0696; J1630; J1642; J2060; J2250; J2270; J2354; J2543; J3370; J3475; J3480; J7030; J7040; J7050; P9035; Q2009; Q9967

== ENCOUNTER 2016-11-29 22:05 | Emergency (ER) | payer SELFPAY ==
[~2016-11-29] VITALS: Ht 175.3 cm; Wt 80.0 kg
[~2016-11-29 22:05] MED LIST: CHLO10CA2 PO; LACT10SO PO; LEVA750T PO; LISI-519 PO; METO25TA3 PO; PANT40TA3 PO; QUET1TAB7 PO; XIFA550T4 PO
[2016-11-29 22:08] VITALS: BP 138/106; PULSE 116; RESP 18; TEMP 98.7; O2SAT 100
--- NOTE | 2016-11-29 22:56 | PD ---
Physical Exam Time Seen by Provider: 22:52 Narrative 46 year old with chills/myalgias, headache, clogged ears, congested, shaky, anxiety, sob for 4 days. Vital signs noted, tachycardic seen at triage desk. Awaiting bed placement. Data Data Last Documented VS Vital Signs Date Time Temp Pulse Resp B/P Pulse Ox O2 Delivery O2 Flow Rate FiO2 11/29/16 22:08 98.7 116 18 138/106 100 MDM Medical Record Reviewed: Yes Supervised Visit with MEL: Yes Richard Styles Nov 29, 2016 22:56
[2016-11-30 01:22] VITALS: BP 146/86; PULSE 90; RESP 20; O2SAT 99
[2016-11-30 01:53] VITALS: O2SAT 97
[2016-11-30 02:00] VITALS: BP 143/99; PULSE 87; RESP 16; O2SAT 97
[2016-11-30] MEDS ORDERED: SODIUM CHLOR 0.9% 1000 ML INJ 1,000 ML IV ONE ×2 (02:00→04:30)
[2016-11-30] MEDS ORDERED: ONDANSETRON HCL 4 MG/2 ML VIAL IV ONE (02:00)
--- NOTE | 2016-11-30 02:13 | PD ---
HPI Chief Complaint: Cold / Flu Symptoms Time Seen by Provider: 01:25 Travel History International Travel<30 days: No Contact w/Intl Traveler<30days: No Traveled to known affect area: No History of Present Illness HPI The patient is a 46 year old male who presents to the [facility] emergency department with a history of reportedly not feeling well for the last 2-3 days. He reports that it started with a sore throat, then he developed congestion, dry cough, nasal discharge that is yellow in color and a sinus headache. The patient reports that he's had body aches and cramps. He reports that today he is also had increased heartburn. He denies having any nausea, vomiting, or diarrhea. He reports that his last bowel movement was earlier today. He reports that over the last 3 days he's had a greatly diminished appetite. The patient denies having a primary care physician. He reports that he is not on any medication. The patient was admitted to the hospital in August 2016 related to status epilepticus with subsequent intubation due to respiratory failure, history of upper GI bleed and paroxysmal atrial fibrillation with RVR, electrolyte abnormalities, and hepatic failure with an elevated ammonia level in the 170s. The patient reports that he had attempted to quit drinking. He reports that he is now down to drinking 2-3 drinks per day. The patient reports having subjective fevers. The patient denies any neck pain, shortness of breath, urinary symptoms, or neurologic symptoms. PFSH Past Medical History Narrative Medical The patient's past medical history is significant for alcohol abuse, history of atrial fibrillation, history of seizure disorder, history of an upper GI bleed, history of hepatic failure in August 2016 with hepatic encephalopathy. Arthritis: No Asthma: No Anxiety: Yes Depression: Yes Cancer: No Cardiovascular Problems: No COPD: No Cerebrovascular Accident: No Endocrine: No Gastrointestinal Disorders: Yes GERD: No Genitourinary: No Hiatal Hernia: No Immune Disorder: No Musculoskeletal: Yes Neurologic: Yes Psychiatric: Yes Reproductive: No Respiratory: Yes Migraines: No Seizures: Yes Sleep Apnea: No Ulcer: No Past Surgical History Narrative Surgical The patient has a past surgical history significant for nasal surgery. Abdominal Surgery: No Cardiac Surgery: No Ear Surgery: No Endocrine Surgery: No Eye Surgery: No Genitourinary Surgery: No Thoracic Surgery: No Other Surgery: Yes (Nose Surgery ) Social History Alcohol Use: Yes (PT AVOIDING QUESTION, PER HISTORY PT DRINKS EVERYDAY) Tobacco Use: No Substance Use: No Allergies-Medications (Allergen,Severity, Reaction): Coded Allergies: No Known Allergies (Unverified , 11/29/16) Reported Meds & Prescriptions Reported Meds & Active Scripts Active K-Tab (Potassium Chloride) 10 Meq Tab 10 Meq PO BID Magnesium Oxide 500 Mg Tab 500 Mg PO BID 7 Days Lactulose Liq (Lactulose) 10 Gm/15 Ml Soln 30 Ml PO BID 30 Days Pantoprazole (Pantoprazole Sodium) 40 Mg Tab 40 Mg PO DAILY Review of Systems Except as stated in HPI: all other systems reviewed are Neg General / Constitutional: No: Fever Eyes: No: Visual changes HENT: Positive: Headaches, Sore Throat, Rhinorrhea, Congestion, No: Neck Stiffness, Neck Pain Cardiovascular: No: Chest Pain or Discomfort Respiratory: Positive: Cough, No: Shortness of Breath Gastrointestinal: Positive: Indigestion, Loss of Appetite, No: Nausea, Vomiting, Diarrhea, Abdominal Pain Genitourinary: No: Urgency, Frequency, Dysuria Musculoskeletal: No: Pain Skin: No Rash Neurologic: Positive: Tremor, No: Weakness, Focal Abnormalities, Change in Mentation, Slurred Speech, Sensory Disturbance Psychiatric: Positive: Substance Abuse, No: Depression Endocrine: No: Polydipsia Hematologic/Lymphatic: No: Easy Bruising Physical Exam Narrative General: The patient is a well-developed well-nourished male, anxious appearing on examination, tremulous. Head and Neck exam: Head is normocephalic atraumatic. Eyes: EOMI, pupils are equal round and reactive to light. Nose: Midline septum with pink mucous membranes Mouth: Dentition unremarkable. Moist mucus membranes. Posterior oropharynx is not erythematous. No tonsillar hypertrophy. Uvula midline. Airway patent. Neck: No palpable lymphadenopathy. No nuchal rigidity. No thyromegaly. Cardiovascular: Regular rate and rhythm without murmurs, gallops, or rubs. Lungs: Clear to auscultation bilaterally. No wheezes, rhonchi, or rales. Abdomen: Soft, without tenderness to palpation in all 4 quadrants of the abdomen. No guarding, rebound, or rigidity. Normal bowel sounds are audible. No tenderness on palpation of McBurney's point. Negative Adame's sign. Extremities: No clubbing, cyanosis, or edema. 2+ pulses in all 4 extremities. No calf tenderness on palpation. Back: No spinous process tenderness to palpation. No costovertebral angle tenderness to palpation. Neurologic Exam: Cranial nerves 2-12 were intact on exam. Strength is 5/5 in all 4 extremities. No sensory deficits noted. Skin Exam: No rash noted. Intact skin that is warm and dry. Data Data Last Documented VS Vital Signs Date Time Temp Pulse Resp B/P Pulse Ox O2 Delivery O2 Flow Rate FiO2 11/30/16 06:01 74 16 125/81 99 11/30/16 04:20 Room Air 11/29/16 22:08 98.7 Orders Electrocardiogram (11/30/16 01:44) Complete Blood Count With Diff (11/30/16 01:44) Comprehensive Metabolic Panel (11/30/16 01:44) Creatine Kinase (Cpk) (11/30/16 01:44) Ckmb (Isoenzyme) Profile (11/30/16 01:44) Troponin I (11/30/16 01:44) Prothrombin Time / Inr (Pt) (11/30/16 01:44) Act Partial Throm Time (Ptt) (11/30/16 01:44) Lipase (11/30/16 01:44) Urinalysis - C+S If Indicated (11/30/16 01:44) Magnesium (Mg) (11/30/16 01:44) Chest, Single Ap (11/30/16 01:44) Iv Access Insert/Monitor (11/30/16 01:44) Ecg Monitoring (11/30/16 01:44) Oximetry (11/30/16 01:44) Drug Screen, Random Urine (11/30/16 01:44) Alcohol (Ethanol) (11/30/16 01:44) Blood Culture (11/30/16 01:44) Influenzae A/B Antigen (11/30/16 01:44) Sodium Chlor 0.9% 1000 Ml Inj (Ns 1000 M (11/30/16 02:00) Ondansetron Inj (Zofran Inj) (11/30/16 02:00) Ammonia (11/30/16 01:58) CKMB (11/30/16 01:50) CKMB% (11/30/16 01:50) Thiamine Inj (Thiamine Inj) (11/30/16 03:00) Magnesium Sulfate 1 Gm Premix (Magnesium (11/30/16 03:00) Potassium Chloride (Kcl) (11/30/16 03:00) Chlordiazepoxide (Librium) (11/30/16 03:15) Pantoprazole Inj (Protonix Inj) (11/30/16 03:45) Sodium Chlor 0.9% 1000 Ml Inj (Ns 1000 M (11/30/16 04:30) Labs Laboratory Tests Test 11/30/16 11/30/16 11/30/16 01:50 02:03 03:30 White Blood Count 5.7 TH/MM3 Red Blood Count 4.40 MIL/MM3 Hemoglobin 14.5 GM/DL Hematocrit 42.7 % Mean Corpuscular Volume 96.9 FL Mean Corpuscular Hemoglobin 32.9 PG Mean Corpuscular Hemoglobin 34.0 % Concent Red Cell Distribution Width 14.9 % Platelet Count 62 TH/MM3 Mean Platelet Volume 9.8 FL Neutrophils (%) (Auto) 72.2 % Lymphocytes (%) (Auto) 19.0 % Monocytes (%) (Auto) 8.4 % Eosinophils (%) (Auto) 0.2 % Basophils (%) (Auto) 0.2 % Neutrophils # (Auto) 4.1 TH/MM3 Lymphocytes # (Auto) 1.1 TH/MM3 Monocytes # (Auto) 0.5 TH/MM3 Eosinophils # (Auto) 0.0 TH/MM3 Basophils # (Auto) 0.0 TH/MM3 CBC Comment AUTO DIFF Differential Total Cells 100 Counted Neutrophils % (Manual) 59 % Band Neutrophils % 12 % Lymphocytes % 19 % Monocytes % 9 % Neutrophils # (Manual) 4.1 TH/MM3 Metamyelocytes 1 % Differential Comment FINAL DIFF MANUAL Atypical Lymphocytes % Platelet Estimate LOW Platelet Morphology Comment NORMAL Prothrombin Time 12.4 SEC Prothromb Time International 1.1 RATIO Ratio Activated Partial 27.1 SEC Thromboplast Time Sodium Level 137 MEQ/L Potassium Level 3.4 MEQ/L Chloride Level 97 MEQ/L Carbon Dioxide Level 28.1 MEQ/L Anion Gap 12 MEQ/L Blood Urea Nitrogen 7 MG/DL Creatinine 0.69 MG/DL Estimat Glomerular Filtration 124 ML/MIN Rate Random Glucose 107 MG/DL Calcium Level 9.4 MG/DL Magnesium Level 1.2 MG/DL Total Bilirubin 3.4 MG/DL Aspartate Amino Transf 39 U/L (AST/SGOT) Alanine Aminotransferase 28 U/L (ALT/SGPT) Alkaline Phosphatase 97 U/L Total Creatine Kinase 159 U/L Creatine Kinase MB LESS THAN 0.5 NG/ML Troponin I LESS THAN 0.02 NG/ML Total Protein 8.1 GM/DL Albumin 4.2 GM/DL Lipase 59 U/L Ethyl Alcohol Level LESS THAN 3 MG/DL Ammonia 35 MCMOL/L Urine Color YELLOW Urine Turbidity CLEAR Urine pH 7.5 Urine Specific [place] 1.020 Urine Protein 30 mg/dL Urine Glucose (UA) NEG mg/dL Urine Ketones 80 mg/dL Urine Occult Blood NEG Urine Nitrite NEG Urine Bilirubin SMALL Urine Urobilinogen 8.0 MG/DL Urine Leukocyte Esterase NEG Urine RBC 1 /hpf Urine WBC 2 /hpf Urine Squamous Epithelial <1 /hpf Cells Urine Hyaline Casts 7 /lpf Urine Mucus FEW /lpf Microscopic Urinalysis Comment CULT NOT INDICATED Urine Opiates Screen NEG Urine Barbiturates Screen NEG Urine Amphetamines Screen NEG Urine Benzodiazepines Screen NEG Urine Cocaine Screen NEG Urine Cannabinoids Screen NEG MDM Medical Decision Making Medical Screen Exam Complete: Yes Emergency Medical Condition: Yes Medical Record Reviewed: Yes Interpretation(s) Last Impressions Chest X-Ray 11/30/16 0144 Signed Impressions: Service Date/Time: Wednesday, November 30, 2016 02:39 - CONCLUSION: No acute disease. Maxi Singh MD Differential Diagnosis Alcohol withdrawal, versus other substance withdrawal, versus hepatic encephalopathy Narrative Course During the course of the patients emergency department visit, the patients history, examination, and differential diagnosis were reviewed with the patient. The patient had IV access obtained and blood work sent for analysis. The patient was placed on a surveillance monitor with oximetry and blood pressure monitoring. An EKG was done on arrival. The patient's EKG shows a sinus rhythm , left axis deviation, no acute ST segment elevation is noted. T waves are inverted in lead 3. The patient was provided normal saline 1 L IV fluid bolus. The patient was given Librium 25 mg by mouth 1, Protonix 40 mg IV. The patients laboratory studies were reviewed and remarkable for a white count of 5.7, hemoglobin 14.5, platelets 62 with 72.2 neutrophils, monocytes 8.4, CMP is remarkable for potassium of 3.4, chloride 97, glucose 107, magnesium 1.2 which was supplemented IV, total bilirubin 3.4, AST 39, CPK 159, troponin I less than 0.02, ammonia level XXXV, lipase 59, PT 12.4, INR 1.1, PTT 27.1, urinalysis shows 30 protein 80 ketones, small bilirubin. Urine drug screen is negative, alcohol level is less than 3 Radiology studies were reviewed and remarkable for a chest x-ray that shows no acute abnormality. Influenza antigen was negative. The patient was started back on some of the medication that he was discharged home on and ran out of previously. He reports that he does not have a primary care physician to follow-up with as he does not have insurance. The patient was given information regarding patient assistance. The patient was also given information regarding the [facility] for consideration of detoxification as he reports that he continues to drink alcohol on a daily basis. The patient is resting comfortably and feels better, is alert and in no distress. The patients results and examination findings were discussed with the patient. The repeat examination is unremarkable and benign. The history, exam, diagnostic testing, and current condition do not suggest any significant pathology to warrant further testing, continued ED treatment, admission, or surgical evaluation at this point. The vital signs have been stable. The patient does not have uncontrollable pain, intractable vomiting, or other significant symptoms. The patient's condition is stable and appropriate for discharge. The patient will pursue further outpatient evaluation with a primary care physician or other designated or consulting physician as indicated in the discharge instructions. The patient expressed understanding and was agreeable with this plan. Diagnosis Primary Impression: Hypomagnesemia Additional Impressions: Hypokalemia Acid reflux Qualified Code: K21.9 - Gastroesophageal reflux disease, esophagitis presence not specified Ref[facility] Patient Instructions: Gastroesophageal Reflux Disease (ED), General Instructions, Hepatic Encephalopathy (ED), Hypomagnesemia (ED) Med/Other Pt SpecificInfo: Prescription(s) given Scripts Potassium Chloride ER (K-Tab)10 Meq Tab10 Meq PO BID #14 TAB Ref 0 Prov:Antonette Moore MD 11/30/16 Magnesium Oxide 500 Mg Rrx301 Mg PO BID 7 Days Ref 0 Prov:Antonette Moore MD 11/30/16 Lactulose Liq 10 Gm/15 Ml Soln30 Ml PO BID 30 Days Ref 0 Prov:Antonette Moore MD 11/30/16 Pantoprazole 40 Mg Tab40 Mg PO DAILY #30 TAB Prov:Antonette Moore MD 11/30/16 Disposition: 01 DISCHARGE HOME Condition: Stable Antonette Moore MD Nov 30, 2016 02:13
[2016-11-30 02:14] LABS: AUTOMATED NEUTROPHIL # 4.1 TH/MM3 (1.8-7.7); BASOPHIL % 0.2 % (0.0-2.0); EOSINOPHIL % 0.2 % (0.0-4.0); HEMATOCRIT 42.7 % (39.0-51.0); LYMPHOCYTE # 1.1 TH/MM3 (1.0-4.8); MEAN CELL VOLUME 96.9 FL (80.0-100.0); MEAN CORPUSCULAR HEMOGLOBIN 32.9 PG (27.0-34.0); MONO % 8.4 % (0.0-8.0); NEUT % 72.2 % (16.0-70.0); PLATELET COUNT 62 TH/MM3 (150-450); RED CELL DISTRIBUTION WIDTH 14.9 % (11.6-17.2); WHITE BLOOD COUNT 5.7 TH/MM3 (4.0-11.0)
[2016-11-30 02:16] LABS: HEMO FLAGS AUTO DIFF
[2016-11-30 02:32] LABS: ALT (GPT) 28 U/L (12-78); ANION GAP 12 MEQ/L (5-15); AST (GOT) 39 U/L (15-37); BICARBONATE 28.1 MEQ/L (21.0-32.0); BLOOD UREA NITROGEN 7 MG/DL (7-18); CHLORIDE 97 MEQ/L (98-107); GLOMERULAR FILTRATION RATE 124 ML/MIN (>89); MAGNESIUM 1.2 MG/DL (1.5-2.5); POTASSIUM 3.4 MEQ/L (3.5-5.1); SODIUM (NA) 137 MEQ/L (136-145)
[2016-11-30 02:33] LABS: APTT (PATIENT) 27.1 SEC (24.3-30.1); INTERNATIONAL NORMALIZED RATIO 1.1 RATIO; PROTHROMBIN TIME - PATIENT 12.4 SEC (9.8-11.6)
[2016-11-30 02:35] LABS: ALKALINE PHOSPHATASE 97 U/L (45-117); CREATINE KINASE 159 U/L (39-308); TOTAL BILIRUBIN ADULT 3.4 MG/DL (0.2-1.0)
[2016-11-30 02:49] LABS: CKMB LESS THAN 0.5 NG/ML (0.5-3.6)
--- NOTE | 2016-11-30 02:56 | RADRPT ---
EXAM DATE/TIME: 11/30/2016 02:39 [facility] COMPARISON: CHEST SINGLE AP, September 07, 2016, 5:17. INDICATIONS : Cough. MEDICAL HISTORY : None. SURGICAL HISTORY : None. ENCOUNTER: Initial ACUITY: 1 week PAIN SCORE: 6/10 LOCATION: Bilateral chest FINDINGS: A single view of the chest demonstrates the lungs to be symmetrically aerated without evidence of mas s, infiltrate or effusion. The cardiomediastinal contours are unremarkable. Osseous structures are intact. CONCLUSION: No acute disease. Maxi Singh MD on November 30, 2016 at 2:55 Board Certified Radiologist. This report was verified electronically.
[2016-11-30] MEDS ORDERED: POTASSIUM CHLORIDE 20 MEQ CONTROLLED RELEASE TAB PO ONE (03:00)
[2016-11-30] MEDS ORDERED: THIAMINE INJ 100 MG in SODIUM CHLORIDE 0.9% INJ 100 ML IV ONE (03:00)
[2016-11-30 03:05] VITALS: BP 130/82; PULSE 95; RESP 20; O2SAT 96
[2016-11-30] MEDS ORDERED: chlordiazePOXIDE 25 MG CAP PO ONE (03:15)
[2016-11-30 03:19] LABS: BANDS 12 % (0-6); METAMYELOCYTES 1 % (0-1); NEUTROPHIL # MANUAL DIFF 4.1 TH/MM3 (1.8-7.7); PLATELET ESTIMATE SMEAR LOW (NORMAL); PLATELET MORPHOLOGY NORMAL (NORMAL); POLYS (SEG NEUTROPHILS) 59 % (16-70); SCAN/DIFF FINAL DIFF MANUAL; WBC DIFF SAMPLE 100
[2016-11-30] MEDS ORDERED: PANTOPRAZOLE SODIUM 40 MG VIAL IV PUSH ONE (03:45)
[2016-11-30 03:47] LABS: BLOOD, URINE NEG (NEG); COMMENT (UR) CULT NOT INDICATED; CULTURE IF INDICATED CULT NOT INDICATED; GLUCOSE,URINE NEG (NEG); HYALINE CAST, URINE 7 /lpf (RARE); KETONE, URINE 80 mg/dL (NEG); MUCUS URINE FEW /lpf (OCC); NITRITE,URINE NEG (NEG); PH, URINE 7.5 (5.0-8.5); SQUAMOUS EPITHELIAL CELL URINE <1 /hpf (0-5); URINE COLOR YELLOW (YELLW/STRAW)
[2016-11-30] MEDS ORDERED: LACT10SO PO (03:47)
[2016-11-30] MEDS ORDERED: PANT40TA3 PO (03:47)
[2016-11-30] MEDS: MAGNESIUM SULFATE 1 GM PREMIX 100 ML IV SCH ×2 (03:47→05:08)
[2016-11-30] MEDS ORDERED: K-TA10TA PO (03:49)
[2016-11-30] MEDS ORDERED: MAGN500T2 PO (03:49)
[2016-11-30 03:52] LABS: AMPHETAMINE, URINE NEG (NEG); BARBITURATES, URINE NEG (NEG); COCAINE, URINE NEG (NEG)
[2016-11-30 04:20] VITALS: BP 124/90; PULSE 74; RESP 17; O2SAT 98
[2016-11-30 06:01] VITALS: BP 125/81
--- NOTE | 2016-11-30 11:52 | EKG ---
Date Performed: 11/30/2016 Time Performed: 01:26:06 PTAGE: 46 years EKG: Sinus rhythm MARKED LEFT AXIS DEVIATION PATTERN CONSISTENT WITH PULMONARY DISEASE ABNORMAL ECG PREVIOUS TRACING : 09/03/2016 19.33 DOCTOR: Artemio Orellana Interpretating Date/Time 11/30/2016 11:50:34
== END 2016-11-30 06:52 | disposition home or self-care (01) ==
LOC: NEPE 22:05
DX: E83.42 Hypomagnesemia (principal); E87.6 Hypokalemia; K21.9 Gastro-esophageal reflux disease without esophagitis; R94.31 Abnormal electrocardiogram [ECG] [EKG]; R05 Cough; R51 Headache; M79.1 Myalgia; Z87.898 Personal history of other specified conditions; Z86.79 Personal history of other diseases of the circulatory system; Z86.69 Personal history of other diseases of the nervous system and sense organs; Z87.19 Personal history of other diseases of the digestive system; Z86.59 Personal history of other mental and behavioral disorders; Z87.39 Personal history of other diseases of the musculoskeletal system and connective tissue; Z87.09 Personal history of other diseases of the respiratory system
CPT/HCPCS: 71010; 80053; 80307; 81001; 82140; 82550; 82552; 83690; 83735; 84484; 85007; 85027; 85610; 85730; 87040; 87804; 93005; 96361; 96365; 96366; 96367; 96375; 99284; C9113; J2405; J3411; J3475; J7030